=== PATIENT | female | born 1960 | race Caucasian/White ===

== ENCOUNTER 2018-12-28 22:03 | Inpatient (IN) | payer MEDICAID, OTHER ==
[~2018-12-28] VITALS: Ht 162.6 cm; Wt 80.8 kg
[~2018-12-28 22:03] MED LIST: ALBU2.5V5 NEB; ALPR1TAB2 PO; ALPR1TAB6 PO; AMLO10TA8 PO; ASPI325T11 PO; ATOR40TA59 PO; CHOL500016 PO; CLON0.1T12 PO; CYCL10TA2 PO; DOCU-109 PO; ESCITALOPRAM OX10 MG PO; ESTR0.3T PO; FLUT9.9S NS; GABA-585 PO; IPRA4AER IH; LEXAPRO20 MG PO; LIDO700A4 TP; LISI-130 PO; LISI10TA2 PO; OXYC1TAB15 PO; OXYC1TAB22 PO; OXYC40TA21 PO; OXYC60TA7 PO; OXYC80TA16 PO; POLY17PO29 PO; PRED20TA PO; Pantoprazole PO; UNABLE MC; VENL75CA PO; VENTOLIN HFA18 GM INH
[2018-12-28] MEDS ORDERED: IV NORMAL SALINE 1000ML BAG 1,000 ML IV ONE (23:00)
[2018-12-28] MEDS ORDERED: DEXAMETHASONE SOD PHOS 20 MG/5 ML VIAL. IV ONE (23:00)
[2018-12-28] MEDS ORDERED: ASPIRIN 325 MG TABLET PO ONE (23:00)
--- NOTE | 2018-12-28 23:14 | PHYS DOC ---
Past Medical History Past Medical History: Arthritis, Cancer, COPD, Fibromyalgia, High Cholesterol, Hypertension, Pancreatitis Additional Past Medical Histor: chronic pain,fibromyalgia,kidney cancer-no chemo,only surgery, shingles Past Surgical History: Cholecystectomy, , Other Additional Past Surgical Histo: BACK SURGERIES, RIGHT NEPHRECTOMY Alcohol Use: None Drug Use: None, Marijuana Adult General Chief Complaint Chief Complaint: SHORTNESS OF BREATH HPI HPI Patient is a 58 year old 58-year-old female presenting to the emergency department for shortness of breath. Patient states that her shortness of breath started about 5 days ago and has worsened since then. She attempted breathing treatments at home with little relief. Exertion worsens her shortness of breath. In addition patient has having a cough with sputum that was initially clear in color and has since changed to green in color. Patient has reported some chills over the past 5 days but no fevers. She is also reporting sharp left sided chest pain over the same time period. Patient denies any nausea, vomiting, lightheadedness, dizziness or diaphoresis. In addition to concerns today, patient also states that she's been having multiple falls over the past 5 days and no longer has anyone at home to help her out. Review of Systems Review of Systems Constitutional: Reports chills. Denies fever Eyes: Denies redness or eye pain HENT: Denies nasal congestion or sore throat Respiratory: Reports cough or shortness of breath Cardiovascular: Denies chest pain or palpitations GI: Denies abdominal pain, nausea, vomiting : Denies dysuria or hematuria Musculoskeletal: Denies back pain or joint pain Integument: Denies rash or skin lesions Neurologic: Denies headache, focal weakness Complete systems were reviewed and found to be within normal limits, except as documented in this note. Current Medications Current Medications Current Medications Medications (Trade) Dose Ordered Sig/Naman Start Time Stop Time Status Last Admin Dose Admin Aspirin (Raudel Aspirin) 325 mg 1X ONCE 12/28/18 23:00 12/28/18 23:01 DC 12/28/18 23:29 325 MG Dexamethasone Sodium Phosphate (Decadron) 10 mg 1X ONCE 12/29/18 00:00 12/29/18 00:01 DC 12/29/18 00:38 10 MG Lorazepam (Ativan) 1 mg 1X ONCE 12/28/18 23:45 12/28/18 23:46 DC 12/29/18 00:00 1 MG Sodium Chloride 1,000 ml @ 1,000 mls/hr 1X ONCE 12/28/18 23:00 12/28/18 23:59 DC 12/28/18 23:29 1,000 MLS/HR Allergies Allergies Allergies Coded Allergies Type Severity Reaction Last Updated Verified codeine Allergy Intermediate hives 02/27/15 Yes fentanyl Allergy Intermediate Nausea and Vomiting 02/27/15 Yes morphine Adverse Reaction Intermediate vomiting 02/27/15 Yes Physical Exam Physical Exam Constitutional: No acute distress, non-toxic appearance. HENT: Normocephalic, atraumatic, dry mucous membranes, nose normal. Eyes: EOMI, conjunctiva normal, no discharge. Neck: Normal range of motion, supple. Cardiovascular:Heart rate regular rhythm, no murmur Lungs & Thorax: Bilateral breath sounds clear to auscultation, bilateral wheezes, no rhonchi or rails. Abdomen: Bowel sounds normal, soft, no tenderness. Skin: Warm, dry, no erythema. Back: No tenderness, no CVA tenderness. Extremities: Tenderness in all extremities, ROM intact, no edema. Neurologic: Alert and oriented X 3, no focal deficits noted. Psychologic: Affect normal, mood normal. Current Patient Data Vital Signs Vital Signs Date Time Temp Pulse Resp B/P (MAP) Pulse Ox O2 Delivery O2 Flow Rate FiO2 12/28/18 23:50 91 25 177/105 (129) 96 Room Air 12/28/18 22:20 98.5 98.5 Lab Values Laboratory Tests Test 12/28/18 23:26 White Blood Count 11.0 x10^3/uL (4.0-11.0) Red Blood Count 4.97 x10^6/uL (3.50-5.40) Hemoglobin 15.3 g/dL (12.0-15.5) Hematocrit 44.8 % (36.0-47.0) Mean Corpuscular Volume 90 fL (79-100) Mean Corpuscular Hemoglobin 31 pg (25-35) Mean Corpuscular Hemoglobin Concent 34 g/dL (31-37) Red Cell Distribution Width 14.3 % (11.5-14.5) Platelet Count 275 x10^3/uL (140-400) Neutrophils (%) (Auto) 59 % (31-73) Lymphocytes (%) (Auto) 28 % (24-48) Monocytes (%) (Auto) 10 % (0-9) H Eosinophils (%) (Auto) 2 % (0-3) Basophils (%) (Auto) 1 % (0-3) Neutrophils # (Auto) 6.5 x10^3uL (1.8-7.7) Lymphocytes # (Auto) 3.0 x10^3/uL (1.0-4.8) Monocytes # (Auto) 1.1 x10^3/uL (0.0-1.1) Eosinophils # (Auto) 0.2 x10^3/uL (0.0-0.7) Basophils # (Auto) 0.1 x10^3/uL (0.0-0.2) Prothrombin Time 12.2 SEC (11.7-14.0) Prothrombin Time INR 0.9 (0.8-1.1) PTT 27 SEC (24-38) Sodium Level 140 mmol/L (136-145) Potassium Level 4.0 mmol/L (3.5-5.1) Chloride Level 102 mmol/L (98-107) Carbon Dioxide Level 29 mmol/L (21-32) Anion Gap 9 (6-14) Blood Urea Nitrogen 24 mg/dL (7-20) H Creatinine 0.8 mg/dL (0.6-1.0) Estimated GFR (Cockcroft-Gault) 74.2 BUN/Creatinine Ratio 30 (6-20) H Glucose Level 109 mg/dL (70-99) H Calcium Level 9.2 mg/dL (8.5-10.1) Magnesium Level 1.9 mg/dL (1.8-2.4) Total Bilirubin 0.1 mg/dL (0.2-1.0) L Aspartate Amino Transferase (AST) 19 U/L (15-37) Alanine Aminotransferase (ALT) 29 U/L (14-59) Alkaline Phosphatase 82 U/L (46-116) Creatine Kinase 50 U/L (26-192) Creatine Kinase MB (Mass) 0.7 ng/mL (0.0-3.6) Creatine Kinase MB Relative Index % (0-4) Troponin I Quantitative < 0.017 ng/mL (0.000-0.055) AU-Eqg-D-Type Natriuretic Peptide 106 pg/mL (0-124) Total Protein 7.1 g/dL (6.4-8.2) Albumin 3.4 g/dL (3.4-5.0) Albumin/Globulin Ratio 0.9 (1.0-1.7) L Lipase 190 U/L (73-393) Laboratory Tests 12/28/18 23:26 Laboratory Tests 12/28/18 23:26 EKG EKG EKG at 01/11/14 showed normal sinus rhythm, rate 92 bpm, no ST elevation or signs of ischemia.[] Radiology/Procedures Radiology/Procedures Preliminary chest x-ray read by ER physician showed no acute pulmonary process. Preliminary hip x-ray read by emergency room physician revealed no acute fractures. Course & Med Decision Making Course & Med Decision Making 58 showed films in the emergency department her shortness of breath. Respiratory shortness of breath the past 5 days. Patient also admits to having some chest pain and recurring falls at home. Patient does have history of COPD. Labs and imaging were obtained and posted to chart. Symptomatic treatment provided with interval improvement. Troponin was negative. EKG showed no signs of ST elevation or ischemia. Breathing treatments provided some relief however patient had multiple treatments. Due to the multiple breathing treatments and falls at home patient would benefit from admission. Patient requiring admission for further evaluation and treatment. Discussed with Dr. Mccoy who is in agreement with admission. Discussed findings and plan with patient and family, who acknowledge understanding and agreement. [] Dragon Disclaimer Dragon Disclaimer This electronic medical record was generated, in whole or in part, using a voice recognition dictation system. Departure Departure Impression: Primary Impression: COPD exacerbation Additional Impression: Chronic pain Disposition: ADMITTED INPATIENT Admitting Physician: Other (Dr. Mccoy) Condition: GUARDED Referrals: ISACC HAMPTON MD (PCP) Problem Qualifiers Additional Impression: Chronic pain Chronic pain type: chronic pain syndrome Qualified Codes: G89.4 - Chronic pain syndrome LANCE HOSKINS DO Dec 28, 2018 23:14
[2018-12-28 23:38] LABS: BASO # 0.1 x10^3/uL (0.0-0.2); BASO % 1 % (0-3); EOS # 0.2 x10^3/uL (0.0-0.7); EOS % 2 % (0-3); HEMATOCRIT 44.8 % (36.0-47.0); HEMOGLOBIN 15.3 g/dL (12.0-15.5); LYMPH % 28 % (24-48); MEAN CORPUSCULAR HEMOGLOBIN 31 pg (25-35); MEAN CORPUSCULAR HGB CONC 34 g/dL (31-37); MEAN CORPUSCULAR VOLUME 90 fL (79-100); MONO # 1.1 x10^3/uL (0.0-1.1); MONO % 10 % (0-9); NEUT # 6.5 x10^3uL (1.8-7.7); NEUT % 59 % (31-73); PLATELET COUNT 275 x10^3/uL (140-400); RED BLOOD COUNT 4.97 x10^6/uL (3.50-5.40); RED CELL DISTRIBUTION WIDTH 14.3 % (11.5-14.5)
[2018-12-28 23:46] LABS: PROTHROMBIN TIME PATIENT 12.2 SEC (11.7-14.0)
[2018-12-28 23:47] LABS: CALCIUM 9.2 mg/dL (8.5-10.1); CREATININE 0.8 mg/dL (0.6-1.0); GFR 74.2
[2018-12-28 23:53] LABS: ALBUMIN 3.4 g/dL (3.4-5.0); ALBUMIN/GLOBULIN RATIO 0.9 (1.0-1.7); MAGNESIUM 1.9 mg/dL (1.8-2.4); TOTAL BILIRUBIN 0.1 mg/dL (0.2-1.0); TOTAL PROTEIN 7.1 g/dL (6.4-8.2)
[2018-12-29] MEDS ORDERED: DEXAMETHASONE SOD PHOS 4 MG/ML VIAL IV ONE
[2018-12-29 00:03] LABS: CREATINE KINASE 50 U/L (26-192)
[2018-12-29] MEDS ORDERED: HYDROmorphone 2 MG/ML VIAL IV PRN (00:15)
[2018-12-29] MEDS ORDERED: oxyCODONE/APAP 10/325 1 TAB TABLET PO PRN (00:30)
[2018-12-29] MEDS ORDERED: ONDANSETRON PF 4 MG/2 ML VIAL. IV PRN (00:30)
[2018-12-29] MEDS ORDERED: ALBUTEROL SULFATE 2.5 MG/3 ML NEBU. NEB PRN (01:00)
[2018-12-29] MEDS ORDERED: ESCITALOPRAM OX10 MG PO (02:28)
[2018-12-29 02:30] VITALS: BP 167/84
[2018-12-29] MEDS ORDERED: OXYC60TA7 PO (02:33)
[2018-12-29] MEDS ORDERED: PROM25TA10 PO (02:33)
[2018-12-29] MEDS ORDERED: ALPR0.5T6 PO (02:33)
[2018-12-29] MEDS ORDERED: OXYC5CAP PO (02:33)
[2018-12-29] MEDS ORDERED: ATROVENT HFA12.9 GM IH (02:33)
[2018-12-29] MEDS ORDERED: CYCL10TA2 PO (02:33)
[2018-12-29] MEDS ORDERED: SENN8.6T99 PO (02:33)
[2018-12-29] MEDS: oxyCODONE IR 5 MG TABLET PO PRN ×5 (03:08→21:13)
--- NOTE | 2018-12-29 06:24 | EKG ---
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
[2018-12-29 07:00] VITALS: BP 112/63
--- NOTE | 2018-12-29 07:46 | RAD ---
Portable chest, 12/29/2018: HISTORY: Chest pain Comparison is made to a study from 01/27/2018. The heart size and pulmonary vascularity are normal. No pulmonary infiltrate is seen. There is no evidence of pleural fluid. IMPRESSION: No acute cardiopulmonary abnormality is detected. Electronically signed by: Benny Lunsford MD (12/29/2018 7:43 AM) [facility]
--- NOTE | 2018-12-29 07:48 | RAD ---
Pelvis with right hip, 3 views, 12/29/2018: HISTORY: Fall, pain No fracture or dislocation is identified. The hip joint spaces are well-maintained with only minimal marginal spurring. Surgical clips overlie the upper pelvis and lower abdomen. IMPRESSION: No acute bony abnormality is detected. Electronically signed by: Benny Lunsfodr MD (12/29/2018 7:44 AM) [facility]
[2018-12-29] MEDS ORDERED: oxyCODONE ER 10 MG TAB.ER.12H PO SCH (09:00)
--- NOTE | 2018-12-29 09:48 | PDOC1 ---
History and Physical Date of Admission Date of Admission DATE: 12/29/18 TIME: 09:47 Identification/Chief Complaint Chief Complaint 8 year old 58-year-old female presenting to the emergency department for shortness of breath. Patient states that her shortness of breath started about 5 days ago and has worsened since then. She attempted breathing treatments at home with little relief. Exertion worsens her shortness of breath. In addition patient has having a cough with sputum that was initially clear in color and has since changed to green in color. Patient has reported some chills over the past 5 days reporting sharp left sided chest pain over the same time period. Patient denies any nausea, vomiting, lightheadedness, dizziness or diaphoresis. In addition to concerns today, patient also states that she's been having multiple falls over the past 5 days She reports she was seeing a PCP AT [facility] Y[facility] WHO TERMINATED HER CARE IN NOVEMBER 2018 DUE TO A POS THC SCREEN, States her right hip and leg are very painful, and now she was told she has a left renal mass ? cancer, hx right nephrectomy due to RENAL CELL CA Past Medical History Past Medical History Past Medical History Past Medical History Past Medical History: Arthritis, Cancer, COPD, Fibromyalgia, High Cholesterol, Hypertension, Pancreatitis Additional Past Medical Histor: chronic pain,fibromyalgia,kidney cancer-no chemo,only surgery, shingles Past Surgical History: Cholecystectomy, , Other Additional Past Surgical Histo: BACK SURGERIES, RIGHT NEPHRECTOMY Alcohol Use: None Drug Use: None, Marijuana Cardiovascular: HTN, Hyperlipidemia Pulmonary: COPD CENTRAL NERVOUS SYSTEM: Periperal neuropathy, Other GI: GERD, Other Heme/Onc: Cancer, Other Psych: Anxiety, Depression Musculoskeletal: low back pain Rheumatologic: Fibromyalgia, Other Renal/: Renal Ca. Past Surgical History Past Surgical History: Cholecystectomy, Hysterectomy, Other Family History Family History: Heart Disease, Hypertension Social History Smoke: <1 pack per day ALCOHOL: none Drugs: None, Marijuana Current Problem List Problem List Problems Medical Problems: (1) Chronic pain Status: Acute (2) COPD exacerbation Status: Acute Current Medications Current Medications Current Medications Aspirin (Raudel Aspirin) 325 mg 1X ONCE PO Last administered on 12/28/18at 23:29 ; Start 12/28/18 at 23:00; Stop 12/28/18 at 23:01; Status DC Sodium Chloride 1,000 ml @ 1,000 mls/hr 1X ONCE IV Last administered on 23:29; Start 12/28/18 at 23:00; Stop 12/28/18 at 23:59; Status DC Dexamethasone Sodium Phosphate (Decadron) 10 mg 1X ONCE IV ; Start 12/28/18 at 23:00; Stop 12/28/18 at 23:01; Status DC Lorazepam (Ativan) 1 mg 1X ONCE IV Last administered on 12/29/18 00:00; Start 12/28/18 at 23:45; Stop 12/28/18 at 23:46; Status DC Dexamethasone Sodium Phosphate (Decadron) 10 mg 1X ONCE IV Last administered on 12/29/18 00:38; Start 12/29/18 at 00:00; Stop 12/29/18 at 00:01; Status DC Ondansetron HCl (Zofran) 4 mg PRN Q8HRS PRN IV NAUSEA/VOMITING Last administered on 12/29/18at 00:38; Start 12/29/18 at 00:30; Stop 12/30/18 at 00:29 Hydromorphone HCl (Dilaudid) 0.5 mg Q4HRS PRN IV PAIN; Start 12/29/18 at 00:15 ; Stop 12/29/18 at 00:23; Status DC Oxycodone/ Acetaminophen (Percocet 10/325) 1 tab PRN Q4HRS PRN PO PAIN Last administered on 12/29/18 00:38; Start 12/29/18 at 00:30; Stop 12/29/18 at 02:45 ; Status DC Albuterol Sulfate (Ventolin Neb Soln) 2.5 mg PRN QID PRN NEB WHEEZING Last administered on 12/29/18 07:59; Start 12/29/18 at 01:00 Oxycodone HCl (OxyCONTIN) 10 mg Q12HR PO Last administered on 12/29/18 09:05; Start 12/29/18 at 09:00 Oxycodone HCl (Roxicodone) 10 mg PRN Q6HRS PRN PO PAIN Last administered on 09:07; Start 12/29/18 at 02:45 Active Scripts Active Reported Oxycodone Hcl 5 Mg Capsule 10 Mg PO PRN Q4HRS PRN Promethazine Hcl 25 Mg Tablet 25 Mg PO PRN Q6HRS PRN Cyclobenzaprine Hcl 10 Mg Tablet 10 Mg PO TID Alprazolam 0.5 Mg Tablet 1 Mg PO TID PRN Senokot (Sennosides) 8.6 Mg Tablet 8.6 Mg PO BID Atrovent Hfa (Ipratropium [place]) 12.9 Gm Hfa.aer.ad 1 Puff IH QID Oxycontin (Oxycodone HCl) 60 Mg Tab.er.12h 60 Mg PO BID Escitalopram Oxalate 10 Mg Tablet 10 Mg PO DAILY Miralax (Polyethylene Glycol 3350) 17 Gm Powd.pack 1 Packet PO DAILY Albuterol Sulfate Neb Soln (Albuterol Sulfate) 2.5 Mg/3 Ml Vial.neb 1 Vial NEB PRN Q4HRS PRN Flonase Allergy Relief (Fluticasone Propionate) 9.9 Ml [place].susp 2 Sprays NS DAILY Lisinopril 40 Mg Tablet 1 Tab PO DAILY Vitamin D3 (Cholecalciferol (Vitamin D3)) 5,000 Unit Tablet 1 Tab PO WEEKLY Allergies Allergies: Coded Allergies: codeine (Verified Allergy, Intermediate, hives, 02/27/15) fentanyl (Verified Allergy, Intermediate, Nausea and Vomiting, 02/27/15) hives morphine (Verified Adverse Reaction, Intermediate, vomiting, 02/27/15) ROS Review of System Review of Systems Review of Systems Constitutional: Reports chills. Denies fever Eyes: Denies redness or eye pain HENT: Denies nasal congestion or sore throat Respiratory: Reports cough or shortness of breath Cardiovascular: Denies chest pain or palpitations GI: Denies abdominal pain, nausea, vomiting : Denies dysuria or hematuria Musculoskeletal: Denies back pain or joint pain Integument: Denies rash or skin lesions Neurologic: Denies headache, focal weakness 14 PT systems were reviewed and found to be within normal limits, except as documented in this note. General: YES: Fatigue Hematological and Lymphatic: No: Bleeding Problems, Blood Clots, Blood Transfusions, Brusing, Night Sweats, Pallor, Swollen Lymph Nodes, Other Respiratory: YES: Cough Musculoskeletal: Yes Gait Disturbance, Yes Joint Pain, Yes Joint Stiffness, Yes Joint Swelling Physical Exam Physical Exam Physical Exam Physical Exam Constitutional: No acute distress, non-toxic appearance. HENT: Normocephalic, atraumatic, dry mucous membranes, nose normal. Eyes: EOMI, conjunctiva normal, no discharge. Neck: Normal range of motion, supple. Cardiovascular:Heart rate regular rhythm, no murmur Lungs & Thorax: Bilateral breath sounds clear to auscultation, bilateral wheezes, no rhonchi or rails. Abdomen: Bowel sounds normal, soft, no tenderness. Skin: Warm, dry, no erythema. Back: No tenderness, no CVA tenderness. Extremities: Tenderness in all extremities, ROM intact, no edema. Neurologic: Alert and oriented X 3, no focal deficits noted. Psychologic: Affect normal, mood normal. General: Alert, Oriented X3, Cooperative, moderate distress HEENT: Atraumatic, PERRLA, EOMI, Mucous membr. moist/pink Lungs: Normal air movement Heart: S1S2, RRR Breasts: Not examined Abdomen: Normal bowel sounds, Soft Rectal Exam: not examined PELVIC: Examination not indicated Neuro: Normal speech, Cranial nerves 3-12 NL Psych/Mental Status: Mood NL (TEARFUL) Vitals Vitals Vital Signs Date Time Temp Pulse Resp B/P (MAP) Pulse Ox O2 Delivery O2 Flow Rate FiO2 12/29/18 09:07 18 Room Air 12/29/18 07:59 93 12/29/18 07:00 97.9 77 112/63 (79) 97.9 Labs Labs Laboratory Tests Test 12/28/18 23:26 12/29/18 02:40 12/29/18 08:11 White Blood Count 11.0 x10^3/uL (4.0-11.0) Red Blood Count 4.97 x10^6/uL (3.50-5.40) Hemoglobin 15.3 g/dL (12.0-15.5) Hematocrit 44.8 % (36.0-47.0) Mean Corpuscular Volume 90 fL (79-100) Mean Corpuscular Hemoglobin 31 pg (25-35) Mean Corpuscular Hemoglobin Concent 34 g/dL (31-37) Red Cell Distribution Width 14.3 % (11.5-14.5) Platelet Count 275 x10^3/uL (140-400) Neutrophils (%) (Auto) 59 % (31-73) Lymphocytes (%) (Auto) 28 % (24-48) Monocytes (%) (Auto) 10 % (0-9) Eosinophils (%) (Auto) 2 % (0-3) Basophils (%) (Auto) 1 % (0-3) Neutrophils # (Auto) 6.5 x10^3uL (1.8-7.7) Lymphocytes # (Auto) 3.0 x10^3/uL (1.0-4.8) Monocytes # (Auto) 1.1 x10^3/uL (0.0-1.1) Eosinophils # (Auto) 0.2 x10^3/uL (0.0-0.7) Basophils # (Auto) 0.1 x10^3/uL (0.0-0.2) Prothrombin Time 12.2 SEC (11.7-14.0) Prothromb Time International Ratio 0.9 (0.8-1.1) Activated Partial Thromboplast Time 27 SEC (24-38) Sodium Level 140 mmol/L (136-145) Potassium Level 4.0 mmol/L (3.5-5.1) Chloride Level 102 mmol/L (98-107) Carbon Dioxide Level 29 mmol/L (21-32) Anion Gap 9 (6-14) Blood Urea Nitrogen 24 mg/dL (7-20) Creatinine 0.8 mg/dL (0.6-1.0) Estimated GFR (Cockcroft-Gault) 74.2 BUN/Creatinine Ratio 30 (6-20) Glucose Level 109 mg/dL (70-99) Calcium Level 9.2 mg/dL (8.5-10.1) Magnesium Level 1.9 mg/dL (1.8-2.4) Total Bilirubin 0.1 mg/dL (0.2-1.0) Aspartate Amino Transf (AST/SGOT) 19 U/L (15-37) Alanine Aminotransferase (ALT/SGPT) 29 U/L (14-59) Alkaline Phosphatase 82 U/L (46-116) Creatine Kinase 50 U/L (26-192) Creatine Kinase MB (Mass) 0.7 ng/mL (0.0-3.6) Creatine Kinase MB Relative Index % (0-4) Troponin I Quantitative < 0.017 ng/mL (0.000-0.055) < 0.017 ng/mL (0.000-0.055) < 0.017 ng/mL (0.000-0.055) HG-Mli-S-Type Natriuretic Peptide 106 pg/mL (0-124) Total Protein 7.1 g/dL (6.4-8.2) Albumin 3.4 g/dL (3.4-5.0) Albumin/Globulin Ratio 0.9 (1.0-1.7) Lipase 190 U/L (73-393) Lactic Acid Level 2.0 mmol/L (0.4-2.0) Laboratory Tests Test 12/28/18 23:26 12/29/18 02:40 12/29/18 08:11 White Blood Count 11.0 x10^3/uL (4.0-11.0) Red Blood Count 4.97 x10^6/uL (3.50-5.40) Hemoglobin 15.3 g/dL (12.0-15.5) Hematocrit 44.8 % (36.0-47.0) Mean Corpuscular Volume 90 fL (79-100) Mean Corpuscular Hemoglobin 31 pg (25-35) Mean Corpuscular Hemoglobin Concent 34 g/dL (31-37) Red Cell Distribution Width 14.3 % (11.5-14.5) Platelet Count 275 x10^3/uL (140-400) Neutrophils (%) (Auto) 59 % (31-73) Lymphocytes (%) (Auto) 28 % (24-48) Monocytes (%) (Auto) 10 % (0-9) Eosinophils (%) (Auto) 2 % (0-3) Basophils (%) (Auto) 1 % (0-3) Neutrophils # (Auto) 6.5 x10^3uL (1.8-7.7) Lymphocytes # (Auto) 3.0 x10^3/uL (1.0-4.8) Monocytes # (Auto) 1.1 x10^3/uL (0.0-1.1) Eosinophils # (Auto) 0.2 x10^3/uL (0.0-0.7) Basophils # (Auto) 0.1 x10^3/uL (0.0-0.2) Prothrombin Time 12.2 SEC (11.7-14.0) Prothromb Time International Ratio 0.9 (0.8-1.1) Activated Partial Thromboplast Time 27 SEC (24-38) Sodium Level 140 mmol/L (136-145) Potassium Level 4.0 mmol/L (3.5-5.1) Chloride Level 102 mmol/L (98-107) Carbon Dioxide Level 29 mmol/L (21-32) Anion Gap 9 (6-14) Blood Urea Nitrogen 24 mg/dL (7-20) Creatinine 0.8 mg/dL (0.6-1.0) Estimated GFR (Cockcroft-Gault) 74.2 BUN/Creatinine Ratio 30 (6-20) Glucose Level 109 mg/dL (70-99) Calcium Level 9.2 mg/dL (8.5-10.1) Magnesium Level 1.9 mg/dL (1.8-2.4) Total Bilirubin 0.1 mg/dL (0.2-1.0) Aspartate Amino Transf (AST/SGOT) 19 U/L (15-37) Alanine Aminotransferase (ALT/SGPT) 29 U/L (14-59) Alkaline Phosphatase 82 U/L (46-116) Creatine Kinase 50 U/L (26-192) Creatine Kinase MB (Mass) 0.7 ng/mL (0.0-3.6) Creatine Kinase MB Relative Index % (0-4) Troponin I Quantitative < 0.017 ng/mL (0.000-0.055) < 0.017 ng/mL (0.000-0.055) < 0.017 ng/mL (0.000-0.055) UF-Jeu-F-Type Natriuretic Peptide 106 pg/mL (0-124) Total Protein 7.1 g/dL (6.4-8.2) Albumin 3.4 g/dL (3.4-5.0) Albumin/Globulin Ratio 0.9 (1.0-1.7) Lipase 190 U/L (73-393) Lactic Acid Level 2.0 mmol/L (0.4-2.0) Images Images PROCEDURE MRI lumbar spine without contrast. HISTORY Chronic low back pain with lumbar radiculitis, increasing leg pain, bilateral leg symptoms TECHNIQUE Sagittal and axial T1 and T2 and sagittal STIR images were acquired of the lumbar spine. Contrast: COMPARISON April 16, 2014 FINDINGS There is some motion degradation. Lumbar vertebral body stature and AP alignment are preserved. There are again interbody cages at L5-S1. There is also hardware near the right anterolateral L1 vertebral body as seen previously. There is posterior annular tear at L4-5 as seen previously, now posterior annular tear at L3-4. There is mild degenerative disc disease at L4-5, mild disc desiccation at L3-4. Conus terminates at L1-2. There is no new significant marrow edema. L3-L4: Shallow posterior central protrusion is less prominent. There is very mild narrowing of the far right lateral recess, decreased indentation upon the central ventral thecal sac. There is very mild narrowing of the right neural foramen, left neural foramen adequate. L4-5: There is again negligible bulge. Spinal canal is overall adequate. There is minimal narrowing of the left neural foramen, right neural foramen adequate. L5-S1: Spinal canal and the neural foramina are adequate. IMPRESSION 1. Previously seen shallow posterior protrusion at L3-4 is less prominent. There is no new significant lumbar spinal stenosis, minimal narrowing of the far right lateral recess at L3-4. There is mild degenerative disc disease at L4-5, mild disc desiccation at L3-4. 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 There are again interbody cages at L5-S1. Electronically signed by: Tuan Hunt MD (Jun 18, 2016 10:11:12) CT abdomen and pelvis with IV contrast History: Right nephrectomy for renal cell carcinoma. Pancreatitis. Restaging and esophageal thickening. Comparison: CT abdomen pelvis 02/28/2015. Technique: After administration of oral and intravenous contrast, 75 mL Omnipaque 300, helical CT of the abdomen and pelvis was performed from the lung bases through the ischial tuberosities. Axial, sagittal, and coronal reconstructions were obtained. One or more of the following individualized dose reduction techniques were utilized for the study: Automated exposure control Adjustment of mA and/or kV according to patient's size Use of iterative reconstruction technique. Findings: Images of lower chest demonstrate mild thickening of the esophageal wall which may be up to 6 mm. This appears circumferential. Intrahepatic and extrahepatic biliary dilatation is similar to previous study. The common bile duct measures 15 mm in diameter, similar to previous study. No pancreatic inflammation is identified. There is mild dilatation of the pancreatic duct up to 5 mm, similar to previous study. No convincing pancreatic mass is identified. Spleen is unremarkable. There is mild thickening of both adrenal glands, similar to previous study. Aortic atherosclerosis is present. No bowel obstruction or inflammation is identified. Appendix is without evidence of inflammation. Urinary bladder demonstrates small amount of excreted intravenous contrast, probably from recent CT angiography of the chest. Urinary bladder has unremarkable appearance. Right nephrectomy changes are seen. The superior pole of left kidney demonstrates a 1.2 cm low-density lesion with Hounsfield units of approximately 30, apparently above that of simple cyst. This lesion appears unchanged in size from previous study. No soft tissue appearing mass is seen involving the left kidney. Left ureter is unremarkable. No abdominal or pelvic lymphadenopathy is seen. No suspicious osseous lesions are identified. Degenerative changes are present spine. Discectomy and vertebral fusion changes are seen at L5-S1. Impression: 1. Status post right nephrectomy. No recurrent or metastatic disease identified. 2. Superior pole of left kidney demonstrates 1.2 cm low-density lesion which appears mildly denser than simple cyst. This is unchanged from previous study and is favored represent hyperdense cyst. Attempt at evaluation with ultrasound may be helpful to confirm cystic nature. 3. Mild thickening of both adrenal glands, similar to previous study. 4. Status post cholecystectomy. Biliary and pancreatic ductal dilatation is similar to previous study. 5. Mild nonspecific esophageal thickening, possibly indicating esophagitis. Recommend clinical correlation. DICTATED and SIGNED BY: LANCE CLOUD MD DATE: 06/18/16 0940 CC: MARQUES WAY DO; ISACC HAMPTON MD ~ Indication severe chest pain. Shortness of breath. Coughing. Duration of symptoms 3 days. Contrast imaging through the chest was performed. Examination was tailored for the detection of pulmonary embolus. Images were reformatted in the coronal and sagittal planes. 60 cc of Omnipaque 300 was administered intravenously. Note is made of a similar examination 11/10/2007. The study is negative for pulmonary embolus. The thoracic aorta appears unremarkable. There is some diffuse thickening of the esophagus.. This is probably incidental. The appearance is very similar to the previous exam. There appear to be several small nodules associated with the right lobe of the thyroid. These appear new relative to the previous exam. These could be further evaluated with ultrasound. There is no significant mediastinal adenopathy. There is some mild right hilar adenopathy similar to the prior study. Dominant soft tissue mass is not seen in either lung. There is a nodular opacity in the left lower lobe measuring approximately 7 mm. This could represent a soft tissue pulmonary nodule or an inflammatory focus. (Image 82 series 3). Follow-up imaging assessing stability should be considered. Imaging through the upper abdomen is unremarkable. IMPRESSION: Negative study for pulmonary embolus. Small nodular opacity in the left lower lobe. This may represent a soft tissue nodule or a small inflammatory focus. Diffuse thickening of the esophagus. If esophageal pathology is suspect endoscopy should be considered. Nodules associated with the right lobe of the thyroid. These could be further evaluated with nonemergent ultrasound if clinically warranted PROCEDURE: HIP RIGHT 2V WITH PELVIS Pelvis with right hip, 3 views, 12/29/2018: HISTORY: Fall, pain No fracture or dislocation is identified. The hip joint spaces are well-maintained with only minimal marginal spurring. Surgical clips overlie the upper pelvis and lower abdomen. IMPRESSION: No acute bony abnormality is detected. Electronically signed by: Benny Lunsford MD (12/29/2018 7:44 AM) [facility] Portable chest, 12/29/2018: HISTORY: Chest pain Comparison is made to a study from 01/27/2018. The heart size and pulmonary vascularity are normal. No pulmonary infiltrate is seen. There is no evidence of pleural fluid. IMPRESSION: No acute cardiopulmonary abnormality is detected. Electronically signed by: Benny Lunsford MD (12/29/2018 7:43 AM) [facility] VTE Prophylaxis Ordered VTE Prophylaxis Devices: No VTE Pharmacological Prophylaxi: Yes Assessment/Plan Assessment/Plan IMPRESSION: 1. Acute respiratory failure secondary to acute exacerbation of chronic obstructive pulmonary disease. 2. Acute exacerbation of chronic obstructive pulmonary disease. 3. hypercapnic respiratory failure. 4. Tobacco dependence. CONTINUOUS 5. Acute bronchitis. 6. HX THC ABUSE 7. Chronic pain syndrome 8. chest pain with neg troponin i series 9- fibromyalgia and chronic pain 10 anxiety and depression 11 hip pain and back pain 12. Diffuse thickening of the esophagus. If esophageal pathology is suspect endoscopy should be considered. BY CT [address] Mild nonspecific esophageal thickening, possibly indicating esophagitis. 13. Nodules associated with the right lobe of the thyroid. These could be further evaluated with nonemergent ultrasound if clinically warranted 14. 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 ON MRI 2016 L/S PLAN: 1. The patient DID not qualify for Trilogy.IN THE PAST 2. instructed on the importance of discontinuing tobacco use. 3. IV ANTIBIOTICS ROCEPHIN, ZITHROMAX 4. DUONEBS QID 5. PULM CONSULT 6. echo 7. tele 8. cardiology consult 9. dvt prophylaxis 10. encouraged narcotic taper and discontinue with hx COPD 11. CONSULT DR KAPLAN 12. out pt GI CONSULT [facility] 78 MIN PT EXAM, CHART REVIEW, > 50% OF TIME WITH EXAM, CHART REVIEW, pt care coordination LENO SAM MD Dec 29, 2018 09:47
[2018-12-29 10:55] VITALS: BP 165/84
[2018-12-29] MEDS ORDERED: PIP/TAZO PER PHARMACY MC PRN (11:30)
[2018-12-29] MEDS ORDERED: PROMETHAZINE 12.5 MG TABLET. PO PRN (11:45)
[2018-12-29] MEDS: ALBUTEROL SULFATE 2.5 MG/3 ML NEBU. NEB PRN (11:52)
[2018-12-29] MEDS: IPRATROPIUM BROMIDE 0.5 MG/2.5 ML NEBU. NEB SCH ×3 (12:00→19:14)
[2018-12-29] MEDS: FLUTICASONE 50MCG/NASAL SPRAY 16GM BOTTLE. NS SCH (12:00)
[2018-12-29] MEDS: AZITHROMYCIN 250 MG TABLET. PO SCH (12:41)
[2018-12-29] MEDS: SENNOSIDES 8.6 MG TABLET PO SCH ×2 (12:41→20:06)
[2018-12-29] MEDS: ALPRAZolam 1 MG TABLET PO PRN ×2 (12:42→20:07)
[2018-12-29] MEDS: POLYETHYLENE GLYCOL 3350 17 GM PACKET. PO SCH (12:42)
[2018-12-29] MEDS: LISINOPRIL 20 MG TABLET PO SCH (12:42)
[2018-12-29] MEDS: CITALOPRAM 20 MG TABLET. PO SCH (12:42)
--- NOTE | 2018-12-29 12:45 | PDOC2 ---
RICH CHAVEZ [employer] 12/29/18 1245: CARDIAC CONSULT DATE OF CONSULT Date of Consult DATE: 12/29/18 TIME: 12:36 REASON FOR CONSULT Reason for Consult: Chest pain REFERRING PHYSICIAN Referring Physician: Dr. Dahl SOURCE Source: Chart review, Patient HISTORY OF PRESENT ILLNESS HISTORY OF PRESENT ILLNESS This is a 58 yo female who presented secondary to shortness breath. Patient reports not feeling well over the last week or so. Has had cough productive of green sputum, congestion, shortness of breath, and body aches. Has been on the couch most of the last week. Yesterday, had very brief sharp pain under her left breast. Seemed to improve by applying pressure to the area. Resolved after about 5 minutes. A few minutes later, had a sharp pain under her right breast. Last only a couple of secondary. No associated dizziness, diaphoresis, palpitations, or nausea/vomiting. No further pain since. PAST MEDICAL HISTORY Cardiovascular: HTN Pulmonary: COPD CENTRAL NERVOUS SYSTEM: Periperal neuropathy GI: GERD, Other (pancreatitis ) Heme/Onc: Cancer (kidney ), Other (DVT) Psych: Anxiety, Depression Musculoskeletal: Osteoarthritis, Other (DDD) Rheumatologic: Fibromyalgia Infectious disease: No pertinent hx ENT: No pertinent hx Renal/: No pertinent hx Endocrine: No pertinent hx Dermatology: No pertinent hx PAST SURGICAL HISTORY Past Surgical History: Hysterectomy, Other (right nephrectomy ) FAMILY HISTORY Family History: Heart Disease (brother ) SOCIAL HISTORY Smoke: Quit (now vapes) ALCOHOL: none Drugs: Marijuana Lives: Alone CURRENT MEDICATIONS CURRENT MEDICATIONS Current Medications Medications (Trade) Dose Ordered Sig/Naman Route PRN Reason Start Time Stop Time Status Last Admin Dose Admin Aspirin (Raudel Aspirin) 325 mg 1X ONCE PO 12/28/18 23:00 12/28/18 23:01 DC 12/28/18 23:29 Sodium Chloride 1,000 ml @ 1,000 mls/hr 1X ONCE IV 12/28/18 23:00 12/28/18 23:59 DC 12/28/18 23:29 Lorazepam (Ativan) 1 mg 1X ONCE IV 12/28/18 23:45 12/28/18 23:46 DC 12/29/18 00:00 Dexamethasone Sodium Phosphate (Decadron) 10 mg 1X ONCE IV 12/29/18 00:00 12/29/18 00:01 DC 12/29/18 00:38 Ondansetron HCl (Zofran) 4 mg PRN Q8HRS PRN IV NAUSEA/VOMITING 12/29/18 00:30 12/30/18 00:29 12/29/18 00:38 Oxycodone/ Acetaminophen (Percocet 10/325) 1 tab PRN Q4HRS PRN PO PAIN 12/29/18 00:30 12/29/18 02:45 DC 12/29/18 00:38 Albuterol Sulfate (Ventolin Neb Soln) 2.5 mg PRN QID PRN NEB WHEEZING 12/29/18 01:00 12/29/18 11:35 DC 12/29/18 07:59 Oxycodone HCl (OxyCONTIN) 10 mg Q12HR PO 12/29/18 09:00 12/29/18 11:38 DC 12/29/18 09:05 Oxycodone HCl (Roxicodone) 10 mg PRN Q6HRS PRN PO PAIN 12/29/18 02:45 12/29/18 12:16 DC 12/29/18 09:07 Albuterol Sulfate (Ventolin Neb Soln) 2.5 mg PRN Q4HRS PRN NEB WHEEZING 12/29/18 11:30 12/29/18 11:52 ALLERGIES ALLERGIES: Coded Allergies: codeine (Verified Allergy, Intermediate, hives, 02/27/15) fentanyl (Verified Allergy, Intermediate, Nausea and Vomiting, 02/27/15) hives morphine (Verified Adverse Reaction, Intermediate, vomiting, 02/27/15) ROS Review of System 14 point ROS conducted with pertinent positives noted above in HPI PHYSICAL EXAM General: Alert, Oriented X3, Cooperative, No acute distress HEENT: Atraumatic Lungs: Clear to auscultation, Other (wheezes) Heart: Regular rate, Normal S1, Normal S2 Abdomen: Soft, No tenderness Extremities: No edema, Normal pulses Skin: No breakdown, No significant lesion Neuro: Normal speech, Sensation intact Psych/Mental Status: Other (tearful) MUSCULOSKELETAL: No deformity VITALS VITALS Vital Signs Date Time Temp Pulse Resp B/P (MAP) Pulse Ox O2 Delivery O2 Flow Rate FiO2 12/29/18 11:48 90 Room Air 12/29/18 10:55 98.1 107 18 165/84 (111) 98.1 LABS Lab: Laboratory Tests Test 12/28/18 23:26 12/29/18 02:40 12/29/18 08:11 White Blood Count 11.0 x10^3/uL (4.0-11.0) Red Blood Count 4.97 x10^6/uL (3.50-5.40) Hemoglobin 15.3 g/dL (12.0-15.5) Hematocrit 44.8 % (36.0-47.0) Mean Corpuscular Volume 90 fL (79-100) Mean Corpuscular Hemoglobin 31 pg (25-35) Mean Corpuscular Hemoglobin Concent 34 g/dL (31-37) Red Cell Distribution Width 14.3 % (11.5-14.5) Platelet Count 275 x10^3/uL (140-400) Neutrophils (%) (Auto) 59 % (31-73) Lymphocytes (%) (Auto) 28 % (24-48) Monocytes (%) (Auto) 10 % (0-9) Eosinophils (%) (Auto) 2 % (0-3) Basophils (%) (Auto) 1 % (0-3) Neutrophils # (Auto) 6.5 x10^3uL (1.8-7.7) Lymphocytes # (Auto) 3.0 x10^3/uL (1.0-4.8) Monocytes # (Auto) 1.1 x10^3/uL (0.0-1.1) Eosinophils # (Auto) 0.2 x10^3/uL (0.0-0.7) Basophils # (Auto) 0.1 x10^3/uL (0.0-0.2) Prothrombin Time 12.2 SEC (11.7-14.0) Prothromb Time International Ratio 0.9 (0.8-1.1) Activated Partial Thromboplast Time 27 SEC (24-38) Sodium Level 140 mmol/L (136-145) Potassium Level 4.0 mmol/L (3.5-5.1) Chloride Level 102 mmol/L (98-107) Carbon Dioxide Level 29 mmol/L (21-32) Anion Gap 9 (6-14) Blood Urea Nitrogen 24 mg/dL (7-20) Creatinine 0.8 mg/dL (0.6-1.0) Estimated GFR (Cockcroft-Gault) 74.2 BUN/Creatinine Ratio 30 (6-20) Glucose Level 109 mg/dL (70-99) Calcium Level 9.2 mg/dL (8.5-10.1) Magnesium Level 1.9 mg/dL (1.8-2.4) Total Bilirubin 0.1 mg/dL (0.2-1.0) Aspartate Amino Transf (AST/SGOT) 19 U/L (15-37) Alanine Aminotransferase (ALT/SGPT) 29 U/L (14-59) Alkaline Phosphatase 82 U/L (46-116) Creatine Kinase 50 U/L (26-192) Creatine Kinase MB (Mass) 0.7 ng/mL (0.0-3.6) Creatine Kinase MB Relative Index % (0-4) Troponin I Quantitative < 0.017 ng/mL (0.000-0.055) < 0.017 ng/mL (0.000-0.055) < 0.017 ng/mL (0.000-0.055) JO-Eyl-B-Type Natriuretic Peptide 106 pg/mL (0-124) Total Protein 7.1 g/dL (6.4-8.2) Albumin 3.4 g/dL (3.4-5.0) Albumin/Globulin Ratio 0.9 (1.0-1.7) Lipase 190 U/L (73-393) Lactic Acid Level 2.0 mmol/L (0.4-2.0) ECHOCARDIOGRAM ECHOCARDIOGRAM <Conclusion> The left ventricular systolic function is normal and the ejection fraction is within normal range. The Ejection Fraction is 55-60%. Transmitral Doppler flow pattern is Grade I-abnormal relaxation pattern. The left atrium size is normal. The right atrium size is normal. The aortic valve is normal in structure and function. Doppler and Color-flow revealed trace mitral regurgitation. Doppler and Color Flow revealed physiological tricuspid regurgitation. There is mild pulmonary hypertension. The PA pressure was estimated at 31 mmHg. The pulmonic valve is not well visualized. There is no evidence of significant pericardial effusion. DATE: 01/31/18 0906 ASSESSMENT/PLAN ASSESSMENT/PLAN 1. Chest pain, atypical. AMI ruled out. 2. Acute respiratory failure secondary to AECOPD, bronchitis 3. Malignant hypertension 4. Chronic pain/fibromyalgia; chronic narcotic use 5. Right renal CA s/p nephrectomy. Possibly left kidney CA as well Recommendations Lipid panel Continue lisinopril. Add Norvasc Echo to assess LV systolic function Follow pulmonary recommends Further recommendations pending above VLAD MALONE MD 12/29/189: CARDIAC CONSULT ASSESSMENT/PLAN ASSESSMENT/PLAN Patient seen and examined. Agree with CAR SHAGGER's assessment and plan. CP with atypical features. [place] ruled out. Agree with norvasc for better BP control Check 2D echo to assess LVF and rule out WMA Plan ischemic eval as outpatient Continue treatment for COPD exac per pulm team Thank you for your consultation RICH CHAVEZ APRN Dec 29, 2018 12:45 VLAD MALONE MD Dec 29, 2018 18:19
[2018-12-29 13:08] LABS: CHOLESTEROL/HDL RATIO 4.5
--- NOTE | 2018-12-29 13:24 | CONS ---
DATE OF CONSULTATION: ATTENDING PHYSICIAN: Dr. Mccoy. REASON FOR CONSULTATION: Dyspnea. HISTORY OF PRESENT ILLNESS: The patient is a 58-year-old female who has multiple chronic medical problems with history of fibromyalgia, history of right renal cancer. Now, she has been told that she has cancer in the left kidney as well, being followed at . The patient has been on oxycodone and OxyContin. She was brought into the hospital as she fell and was complaining of more pain in the right leg. The patient states she also had DVT about 3 years ago, which was treated with Coumadin. She has not followed up regularly at . She was recently dismissed from due to smoking marijuana, which she was doing it as she was trying to control her pain. She was brought into the hospital with multiple issues including some shortness of breath with wheezing. She has a cough with yellow-green sputum production. She has no headaches, no nausea, vomiting, no diarrhea, but she has pain in her back and her hip. The patient's chest x-ray was reviewed by me. It was reported as clear. There may be faint tiny infiltrate in the right perihilar area. She had a previous CT chest on 01/31/2018, which did not reveal any definite parenchymal abnormalities. PAST MEDICAL HISTORY: History of a right renal cell cancer, history of surgery for that, right nephrectomy, history of COPD, ongoing tobaccoism, history of fibromyalgia, history of chronic pain syndrome, dyslipidemia, hypertension, history of pancreatitis. Now, she has been told she has cancer in her left kidney as well, history of shingles. PAST SURGICAL HISTORY: Cholecystectomy, right nephrectomy, back surgeries. SOCIAL HISTORY: History of tobacco use for 25 years and history of marijuana use. REVIEW OF SYSTEMS: Twelve-point system obtained. Pertinent positives discussed in my history of present illness, otherwise noncontributory. All systems that were negative were reviewed as well. MEDICATIONS: All reviewed as listed in the MRAD including antibiotic. PHYSICAL EXAMINATION: VITAL SIGNS: Reviewed. Blood pressure on the high side. She is afebrile. Pulse ox is 93% on room air. NECK: Supple. LUNGS: With faint bilateral expiratory wheezes. CARDIOVASCULAR: With regular rate and rhythm. ABDOMEN: Soft, nontender. EXTREMITIES: With no pitting edema. PSYCHIATRIC: She is crying with pain. IMPRESSION: 1. Dyspnea secondary to acute exacerbation of chronic obstructive pulmonary disease triggered by acute bronchitis. 2. Acute bronchitis, cannot exclude mild pneumonia involving the right perihilar area. CT chest has been ordered by primary care physician and will follow the results. 3. Chronic pain syndrome, on chronic narcotics. 4. History of right renal cell cancer, status post right nephrectomy and being followed at and has been told that she has cancer on her left kidney as well. We will ask Urology recommendation. RECOMMENDATIONS: 1. Continue with present antibiotics, Rocephin and Zithromax. 2. Continue present bronchodilators. 3. PRN oxygen. 4. We will review the CT chest and make further recommendations. 5. Pain management per PCP. 6. Urology consult. 7. Discussed with Dr. Dahl and we will follow along with you. ESPERANZA FLETCHER MD DR: CLAU/quinton JOB#: [id number] / [id number]
--- NOTE | 2018-12-29 13:53 | RAD ---
CT of the chest without contrast, 12/29/2018: HISTORY: Esophageal mass Noncontrast scans were obtained as requested. Comparison is made to a study from 01/31/2018. There is calcific plaquing of the thoracic aorta without evidence of aneurysm. Minimal coronary artery calcification is noted. The heart is not enlarged. No mediastinal adenopathy is evident. No esophageal mass is delineated. Patient respiratory motion artifacts partially degrade evaluation of the pulmonary parenchyma. There is a tiny 3 mm nodule in the posteromedial aspect of the right lower lobe as seen on axial image 399 of series #4. In retrospect there was a less clearly defined opacity in this region on the previous study. No other pulmonary nodularity or significant consolidation is seen. There is no evidence of pleural fluid. The stomach is distended with fluid and food debris. IMPRESSION: 1. Tiny right pulmonary nodule which in retrospect was present on 01/31/2018 but is better demonstrated on today's thinner slices. Depending on the patient's risk factors, CT follow-up is suggested to establish stability. 2. Coronary calcifications. 3. No esophageal mass is identified. Correlation with endoscopic findings is suggested. PQRS Compliance Statement: One or more of the following individualized dose reduction techniques were utilized for this examination: 1. Automated exposure control 2. Adjustment of the mA and/or kV according to patient size 3. Use of iterative reconstruction technique Electronically signed by: Benny Lunsford MD (12/29/2018 1:50 PM) [facility]
[2018-12-29] MEDS: cefTRIAXone IV Push 1 GM VIAL. IVP SCH (14:11)
[2018-12-29 15:00] VITALS: BP 148/86
[2018-12-29] MEDS: ENOXAPARIN 40 MG/0.4 ML SYRINGE. SQ SCH (17:26)
[2018-12-29 19:57] VITALS: BP 139/83
[2018-12-29] MEDS: oxyCODONE ER 15 MG TAB.ER.12H PO SCH (20:05)
[2018-12-29] MEDS: LACTOBACILLUS RHAMNOSUS GG 1 CAPSULE. PO SCH (20:06)
[2018-12-30] MEDS: oxyCODONE IR 5 MG TABLET PO PRN ×4 (01:46→17:12)
[2018-12-30 03:20] VITALS: BP 143/78
[2018-12-30 07:00] VITALS: BP 130/64
[2018-12-30] MEDS: FLUTICASONE 50MCG/NASAL SPRAY 16GM BOTTLE. NS SCH (08:17)
[2018-12-30] MEDS: SENNOSIDES 8.6 MG TABLET PO SCH ×2 (08:18→20:43)
[2018-12-30] MEDS: amLODIPine BESYLATE 5 MG TABLET PO SCH (08:18)
[2018-12-30] MEDS: AZITHROMYCIN 250 MG TABLET. PO SCH (08:18)
[2018-12-30] MEDS: CITALOPRAM 20 MG TABLET. PO SCH (08:19)
[2018-12-30] MEDS: POLYETHYLENE GLYCOL 3350 17 GM PACKET. PO SCH (08:19)
[2018-12-30] MEDS: LACTOBACILLUS RHAMNOSUS GG 1 CAPSULE. PO SCH ×2 (08:19→20:43)
[2018-12-30] MEDS: LISINOPRIL 20 MG TABLET PO SCH (08:19)
[2018-12-30] MEDS: ALPRAZolam 1 MG TABLET PO PRN ×2 (08:28→20:51)
[2018-12-30] MEDS: IPRATROPIUM BROMIDE 0.5 MG/2.5 ML NEBU. NEB SCH ×4 (08:44→20:00)
--- NOTE | 2018-12-30 08:50 | PDOC ---
PULMONARY PROGRESS NOTES Subjective has sob, cough, no pain Vitals Vital Signs Date Time Temp Pulse Resp B/P (MAP) Pulse Ox O2 Delivery O2 Flow Rate FiO2 12/30/18 08:19 69 143/78 12/30/18 08:18 96 Room Air 12/30/18 07:00 98.2 20 98.2 ROS: No Nausea, No Chest Pain General: Alert, Mild Distress HEENT: Other (nc at perrl ) Lungs: Wheezing, Other Cardiovascular: S1, S2 Abdomen: Soft, Non-tender Neuro Exam: Alert Extremities: No Edema Skin: Warm Labs Laboratory Tests Test 12/28/18 23:26 12/29/18 02:40 12/29/18 08:11 White Blood Count 11.0 x10^3/uL (4.0-11.0) Red Blood Count 4.97 x10^6/uL (3.50-5.40) Hemoglobin 15.3 g/dL (12.0-15.5) Hematocrit 44.8 % (36.0-47.0) Mean Corpuscular Volume 90 fL (79-100) Mean Corpuscular Hemoglobin 31 pg (25-35) Mean Corpuscular Hemoglobin Concent 34 g/dL (31-37) Red Cell Distribution Width 14.3 % (11.5-14.5) Platelet Count 275 x10^3/uL (140-400) Neutrophils (%) (Auto) 59 % (31-73) Lymphocytes (%) (Auto) 28 % (24-48) Monocytes (%) (Auto) 10 % (0-9) Eosinophils (%) (Auto) 2 % (0-3) Basophils (%) (Auto) 1 % (0-3) Neutrophils # (Auto) 6.5 x10^3uL (1.8-7.7) Lymphocytes # (Auto) 3.0 x10^3/uL (1.0-4.8) Monocytes # (Auto) 1.1 x10^3/uL (0.0-1.1) Eosinophils # (Auto) 0.2 x10^3/uL (0.0-0.7) Basophils # (Auto) 0.1 x10^3/uL (0.0-0.2) Prothrombin Time 12.2 SEC (11.7-14.0) Prothromb Time International Ratio 0.9 (0.8-1.1) Activated Partial Thromboplast Time 27 SEC (24-38) Sodium Level 140 mmol/L (136-145) Potassium Level 4.0 mmol/L (3.5-5.1) Chloride Level 102 mmol/L (98-107) Carbon Dioxide Level 29 mmol/L (21-32) Anion Gap 9 (6-14) Blood Urea Nitrogen 24 mg/dL (7-20) Creatinine 0.8 mg/dL (0.6-1.0) Estimated GFR (Cockcroft-Gault) 74.2 BUN/Creatinine Ratio 30 (6-20) Glucose Level 109 mg/dL (70-99) Calcium Level 9.2 mg/dL (8.5-10.1) Magnesium Level 1.9 mg/dL (1.8-2.4) Total Bilirubin 0.1 mg/dL (0.2-1.0) Aspartate Amino Transf (AST/SGOT) 19 U/L (15-37) Alanine Aminotransferase (ALT/SGPT) 29 U/L (14-59) Alkaline Phosphatase 82 U/L (46-116) Creatine Kinase 50 U/L (26-192) Creatine Kinase MB (Mass) 0.7 ng/mL (0.0-3.6) Creatine Kinase MB Relative Index % (0-4) Troponin I Quantitative < 0.017 ng/mL (0.000-0.055) < 0.017 ng/mL (0.000-0.055) < 0.017 ng/mL (0.000-0.055) TN-Qzy-J-Type Natriuretic Peptide 106 pg/mL (0-124) Total Protein 7.1 g/dL (6.4-8.2) Albumin 3.4 g/dL (3.4-5.0) Albumin/Globulin Ratio 0.9 (1.0-1.7) Lipase 190 U/L (73-393) Lactic Acid Level 2.0 mmol/L (0.4-2.0) Triglycerides Level 160 mg/dL (0-150) Cholesterol Level 285 mg/dL (0-200) LDL Cholesterol, Calculated 190 mg/dL (0-100) VLDL Cholesterol, Calculated 32 mg/dL (0-40) Non-HDL Cholesterol Calculated 222 mg/dL (0-129) HDL Cholesterol 63 mg/dL (40-60) Cholesterol/HDL Ratio 4.5 Medications Active Scripts Medications Dose Route/Sig Max Daily Dose Days Date Category Oxycodone Hcl 5 Mg Capsule 10 Mg PO PRN Q4HRS PRN 12/29/18 Reported Promethazine Hcl 25 Mg Tablet 25 Mg PO PRN Q6HRS PRN 12/29/18 Reported Cyclobenzaprine Hcl 10 Mg Tablet 10 Mg PO TID 12/29/18 Reported Alprazolam 0.5 Mg Tablet 1 Mg PO TID PRN 12/29/18 Reported Senokot (Sennosides) 8.6 Mg Tablet 8.6 Mg PO BID 12/29/18 Reported Atrovent Hfa (Ipratropium [place]) 12.9 Gm Hfa.aer.ad 1 Puff IH QID 12/29/18 Reported Oxycontin (Oxycodone HCl) 60 Mg Tab.er.12h 60 Mg PO BID 12/29/18 Reported Escitalopram Oxalate 10 Mg Tablet 10 Mg PO DAILY 12/29/18 Reported Miralax (Polyethylene Glycol 3350) 17 Gm Powd.pack 1 Packet PO DAILY 01/28/18 Reported Albuterol Sulfate Neb Soln (Albuterol Sulfate) 2.5 Mg/3 Ml Vial.neb 1 Vial NEB PRN Q4HRS PRN 01/27/18 Reported Flonase Allergy Relief (Fluticasone Propionate) 9.9 Ml [place].susp 2 Sprays NS DAILY 01/27/18 Reported Lisinopril 40 Mg Tablet 1 Tab PO DAILY 01/27/18 Reported Vitamin D3 (Cholecalciferol (Vitamin D3)) 5,000 Unit Tablet 1 Tab PO WEEKLY 01/27/[address] reviewed 1. Tiny right pulmonary nodule which in retrospect was present on 01/31/2018 but is better demonstrated on today's thinner slices. Depending on the patient's risk factors, CT follow-up is suggested to establish stability. 2. Coronary calcifications. 3. No esophageal mass is identified. Correlation with endoscopic findings is suggested. Impression . IMPRESSION: 1. Dyspnea secondary to acute exacerbation of chronic obstructive pulmonary disease triggered by acute bronchitis. 2. Acute bronchitis, CT chest, no infilt 3. Chronic pain syndrome, on chronic narcotics. 4. History of right renal cell cancer, status post right nephrectomy and being followed at and has been told that she has cancer on her left kidney as well. Urology consulted Plan . RECOMMENDATIONS: 1. Continue with present antibiotics, Rocephin and Zithromax. 2. Continue bronchodilators. 3. has wheezing add solumedrol, add ICS. 4. CT chest reviewed. 5. Pain management per PCP. 6. Urology consulted. 7. discussed w pt we will follow along with you. GURWINDER KOHLI MD Dec 30, 2018 08:50
[2018-12-30 08:53] LABS: BASO # 0.1 x10^3/uL (0.0-0.2); BASO % 1 % (0-3); EOS # 0.1 x10^3/uL (0.0-0.7); EOS % 1 % (0-3); HEMATOCRIT 45.1 % (36.0-47.0); HEMOGLOBIN 14.8 g/dL (12.0-15.5); LYMPH # 3.6 x10^3/uL (1.0-4.8); LYMPH % 25 % (24-48); MEAN CORPUSCULAR HEMOGLOBIN 30 pg (25-35); MEAN CORPUSCULAR HGB CONC 33 g/dL (31-37); MEAN CORPUSCULAR VOLUME 91 fL (79-100); MONO # 1.4 x10^3/uL (0.0-1.1); MONO % 10 % (0-9); NEUT # 9.3 x10^3uL (1.8-7.7); NEUT % 64 % (31-73); PLATELET COUNT 268 x10^3/uL (140-400); RED BLOOD COUNT 4.95 x10^6/uL (3.50-5.40); RED CELL DISTRIBUTION WIDTH 14.8 % (11.5-14.5); WHITE BLOOD COUNT 14.4 x10^3/uL (4.0-11.0)
[2018-12-30] MEDS ORDERED: CHOLECALCIFEROL (VITAMIN D3) 5,000 UNIT CAPSULE PO SCH (09:00)
[2018-12-30] MEDS: BUDESONIDE 0.5 MG/2 ML NEBU. NEB SCH ×2 (09:00→20:00)
[2018-12-30 09:09] LABS: ALBUMIN 3.1 g/dL (3.4-5.0); ALBUMIN/GLOBULIN RATIO 0.9 (1.0-1.7); CALCIUM 8.8 mg/dL (8.5-10.1); GFR 57.4; TOTAL BILIRUBIN 0.2 mg/dL (0.2-1.0); TOTAL PROTEIN 6.6 g/dL (6.4-8.2)
[2018-12-30] MEDS: methylPREDNISolone SOD SUCC PF 40 MG/ML VIAL. IV SCH ×3 (09:49→20:44)
[2018-12-30] MEDS: oxyCODONE ER 15 MG TAB.ER.12H PO SCH ×2 (09:49→20:43)
[2018-12-30 11:00] VITALS: BP 138/80
--- NOTE | 2018-12-30 11:27 | NUR ---
pt has been fighting us on a daily basis concerning her diet. She is on a cardiac diet but swears that she is not to be on one. she throws a big fit, yells at dietary and us on the floor. We have educated her numerous times on the diet chosen for her but she does not care. dietary does not wish to speak with her on the phone any longer due to the fact she likes to yell at them and hang up. So at this point we just let her order whatver she wants and staff orders it for her. Chad Silvestre RN
--- NOTE | 2018-12-30 11:47 | PDOC ---
PROGRESS NOTES History of Present Illness History of Present Illness Assessment/Plan Assessment/Plan IMPRESSION: 1. Acute respiratory failure secondary to acute exacerbation of chronic obstructive pulmonary disease. 2. Acute exacerbation of chronic obstructive pulmonary disease. 3. hypercapnic respiratory failure. 4. Tobacco dependence. CONTINUOUS 5. Acute bronchitis. 6. HX THC ABUSE 7. Chronic pain syndrome 8. chest pain with neg troponin i series 9- fibromyalgia and chronic pain 10 anxiety and depression 11 hip pain and back pain 12. Diffuse thickening of the esophagus. If esophageal pathology is suspect endoscopy should be considered. BY CT [address] Mild nonspecific esophageal thickening, possibly indicating esophagitis. 13. Nodules associated with the right lobe of the thyroid. These could be further evaluated with nonemergent ultrasound if clinically warranted 14. 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 ON MRI 2015 L/S 15. INTRACTABLE BACK PAIN AND RADICULOPATHY PLAN: 1. The patient DID not qualify for Trilogy.IN THE PAST 2. instructed on the importance of discontinuing tobacco use. 3. IV ANTIBIOTICS ROCEPHIN, ZITHROMAX 4. DUONEBS QID 5. PULM CONSULT 6. echo 7. tele 8. cardiology consult 9. dvt prophylaxis 10. encouraged narcotic taper and discontinue with hx COPD 11. CONSULT DR KAPLAN 12. out pt GI CONSULT [facility] 48 MIN PT EXAM, CHART REVIEW, > 50% OF TIME WITH EXAM, CHART REVIEW, pt care coordination Vitals Vitals Vital Signs Date Time Temp Pulse Resp B/P (MAP) Pulse Ox O2 Delivery O2 Flow Rate FiO2 12/30/18 09:49 96 Room Air 12/30/18 08:19 69 143/78 12/30/18 07:00 98.2 20 98.2 Physical Exam General: Alert, Oriented X3, Cooperative, No acute distress, mild distress Heart: Regular rate, Normal S1, Normal S2 Lungs: Wheezing (WORSE TODAY), Other Abdomen: Normal bowel sounds, Soft, No tenderness Extremities: No cyanosis, No edema, Normal pulses Skin: No breakdown, No significant lesion Labs LABS SEX: F EXAM STATUS: ADM IN ORD. PHYSICIAN: LENO SAM MD REASON: ESOPHAGEAL MASS PROCEDURE: CT CHEST WO CONTRAST CT of the chest without contrast, 12/29/2018: HISTORY: Esophageal mass Noncontrast scans were obtained as requested. Comparison is made to a study from 01/31/2018. There is calcific plaquing of the thoracic aorta without evidence of aneurysm. Minimal coronary artery calcification is noted. The heart is not enlarged. No mediastinal adenopathy is evident. No esophageal mass is delineated. Patient respiratory motion artifacts partially degrade evaluation of the pulmonary parenchyma. There is a tiny 3 mm nodule in the posteromedial aspect of the right lower lobe as seen on axial image 399 of series #4. In retrospect there was a less clearly defined opacity in this region on the previous study. No other pulmonary nodularity or significant consolidation is seen. There is no evidence of pleural fluid. The stomach is distended with fluid and food debris. IMPRESSION: 1. Tiny right pulmonary nodule which in retrospect was present on 01/31/2018 but is better demonstrated on today's thinner slices. Depending on the patient's risk factors, CT follow-up is suggested to establish stability. 2. Coronary calcifications. 3. No esophageal mass is identified. Correlation with endoscopic findings is suggested. Laboratory Tests Test 12/30/18 08:00 12/30/18 08:20 Sodium Level 139 mmol/L (136-145) Potassium Level 4.0 mmol/L (3.5-5.1) Chloride Level 103 mmol/L (98-107) Carbon Dioxide Level 28 mmol/L (21-32) Anion Gap 8 (6-14) Blood Urea Nitrogen 25 mg/dL (7-20) Creatinine 1.0 mg/dL (0.6-1.0) Estimated GFR (Cockcroft-Gault) 57.4 BUN/Creatinine Ratio 25 (6-20) Glucose Level 123 mg/dL (70-99) Calcium Level 8.8 mg/dL (8.5-10.1) Total Bilirubin 0.2 mg/dL (0.2-1.0) Aspartate Amino Transf (AST/SGOT) 15 U/L (15-37) Alanine Aminotransferase (ALT/SGPT) 24 U/L (14-59) Alkaline Phosphatase 72 U/L (46-116) Total Protein 6.6 g/dL (6.4-8.2) Albumin 3.1 g/dL (3.4-5.0) Albumin/Globulin Ratio 0.9 (1.0-1.7) White Blood Count 14.4 x10^3/uL (4.0-11.0) Red Blood Count 4.95 x10^6/uL (3.50-5.40) Hemoglobin 14.8 g/dL (12.0-15.5) Hematocrit 45.1 % (36.0-47.0) Mean Corpuscular Volume 91 fL (79-100) Mean Corpuscular Hemoglobin 30 pg (25-35) Mean Corpuscular Hemoglobin Concent 33 g/dL (31-37) Red Cell Distribution Width 14.8 % (11.5-14.5) Platelet Count 268 x10^3/uL (140-400) Neutrophils (%) (Auto) 64 % (31-73) Lymphocytes (%) (Auto) 25 % (24-48) Monocytes (%) (Auto) 10 % (0-9) Eosinophils (%) (Auto) 1 % (0-3) Basophils (%) (Auto) 1 % (0-3) Neutrophils # (Auto) 9.3 x10^3uL (1.8-7.7) Lymphocytes # (Auto) 3.6 x10^3/uL (1.0-4.8) Monocytes # (Auto) 1.4 x10^3/uL (0.0-1.1) Eosinophils # (Auto) 0.1 x10^3/uL (0.0-0.7) Basophils # (Auto) 0.1 x10^3/uL (0.0-0.2) Assessment and Plan Assessmemt and Plan Problems Medical Problems: (1) Chronic pain Status: Acute (2) COPD exacerbation Status: Acute Comment Review of Relevant I have reviewed the following items rodolfo (where applicable) has been applied. Labs Laboratory Tests Test 12/28/18 23:26 12/29/18 02:40 12/29/18 08:11 12/30/18 08:00 White Blood Count 11.0 x10^3/uL (4.0-11.0) Red Blood Count 4.97 x10^6/uL (3.50-5.40) Hemoglobin 15.3 g/dL (12.0-15.5) Hematocrit 44.8 % (36.0-47.0) Mean Corpuscular Volume 90 fL (79-100) Mean Corpuscular Hemoglobin 31 pg (25-35) Mean Corpuscular Hemoglobin Concent 34 g/dL (31-37) Red Cell Distribution Width 14.3 % (11.5-14.5) Platelet Count 275 x10^3/uL (140-400) Neutrophils (%) (Auto) 59 % (31-73) Lymphocytes (%) (Auto) 28 % (24-48) Monocytes (%) (Auto) 10 % (0-9) Eosinophils (%) (Auto) 2 % (0-3) Basophils (%) (Auto) 1 % (0-3) Neutrophils # (Auto) 6.5 x10^3uL (1.8-7.7) Lymphocytes # (Auto) 3.0 x10^3/uL (1.0-4.8) Monocytes # (Auto) 1.1 x10^3/uL (0.0-1.1) Eosinophils # (Auto) 0.2 x10^3/uL (0.0-0.7) Basophils # (Auto) 0.1 x10^3/uL (0.0-0.2) Prothrombin Time 12.2 SEC (11.7-14.0) Prothromb Time International Ratio 0.9 (0.8-1.1) Activated Partial Thromboplast Time 27 SEC (24-38) Sodium Level 140 mmol/L (136-145) 139 mmol/L (136-145) Potassium Level 4.0 mmol/L (3.5-5.1) 4.0 mmol/L (3.5-5.1) Chloride Level 102 mmol/L (98-107) 103 mmol/L (98-107) Carbon Dioxide Level 29 mmol/L (21-32) 28 mmol/L (21-32) Anion Gap 9 (6-14) 8 (6-14) Blood Urea Nitrogen 24 mg/dL (7-20) 25 mg/dL (7-20) Creatinine 0.8 mg/dL (0.6-1.0) 1.0 mg/dL (0.6-1.0) Estimated GFR (Cockcroft-Gault) 74.2 57.4 BUN/Creatinine Ratio 30 (6-20) 25 (6-20) Glucose Level 109 mg/dL (70-99) 123 mg/dL (70-99) Calcium Level 9.2 mg/dL (8.5-10.1) 8.8 mg/dL (8.5-10.1) Magnesium Level 1.9 mg/dL (1.8-2.4) Total Bilirubin 0.1 mg/dL (0.2-1.0) 0.2 mg/dL (0.2-1.0) Aspartate Amino Transf (AST/SGOT) 19 U/L (15-37) 15 U/L (15-37) Alanine Aminotransferase (ALT/SGPT) 29 U/L (14-59) 24 U/L (14-59) Alkaline Phosphatase 82 U/L (46-116) 72 U/L (46-116) Creatine Kinase 50 U/L (26-192) Creatine Kinase MB (Mass) 0.7 ng/mL (0.0-3.6) Creatine Kinase MB Relative Index % (0-4) Troponin I Quantitative < 0.017 ng/mL (0.000-0.055) < 0.017 ng/mL (0.000-0.055) < 0.017 ng/mL (0.000-0.055) IJ-Oyb-A-Type Natriuretic Peptide 106 pg/mL (0-124) Total Protein 7.1 g/dL (6.4-8.2) 6.6 g/dL (6.4-8.2) Albumin 3.4 g/dL (3.4-5.0) 3.1 g/dL (3.4-5.0) Albumin/Globulin Ratio 0.9 (1.0-1.7) 0.9 (1.0-1.7) Lipase 190 U/L (73-393) Lactic Acid Level 2.0 mmol/L (0.4-2.0) Triglycerides Level 160 mg/dL (0-150) Cholesterol Level 285 mg/dL (0-200) LDL Cholesterol, Calculated 190 mg/dL (0-100) VLDL Cholesterol, Calculated 32 mg/dL (0-40) Non-HDL Cholesterol Calculated 222 mg/dL (0-129) HDL Cholesterol 63 mg/dL (40-60) Cholesterol/HDL Ratio 4.5 Test 12/30/18 08:20 White Blood Count 14.4 x10^3/uL (4.0-11.0) Red Blood Count 4.95 x10^6/uL (3.50-5.40) Hemoglobin 14.8 g/dL (12.0-15.5) Hematocrit 45.1 % (36.0-47.0) Mean Corpuscular Volume 91 fL (79-100) Mean Corpuscular Hemoglobin 30 pg (25-35) Mean Corpuscular Hemoglobin Concent 33 g/dL (31-37) Red Cell Distribution Width 14.8 % (11.5-14.5) Platelet Count 268 x10^3/uL (140-400) Neutrophils (%) (Auto) 64 % (31-73) Lymphocytes (%) (Auto) 25 % (24-48) Monocytes (%) (Auto) 10 % (0-9) Eosinophils (%) (Auto) 1 % (0-3) Basophils (%) (Auto) 1 % (0-3) Neutrophils # (Auto) 9.3 x10^3uL (1.8-7.7) Lymphocytes # (Auto) 3.6 x10^3/uL (1.0-4.8) Monocytes # (Auto) 1.4 x10^3/uL (0.0-1.1) Eosinophils # (Auto) 0.1 x10^3/uL (0.0-0.7) Basophils # (Auto) 0.1 x10^3/uL (0.0-0.2) Laboratory Tests Test 12/30/18 08:00 12/30/18 08:20 Sodium Level 139 mmol/L (136-145) Potassium Level 4.0 mmol/L (3.5-5.1) Chloride Level 103 mmol/L (98-107) Carbon Dioxide Level 28 mmol/L (21-32) Anion Gap 8 (6-14) Blood Urea Nitrogen 25 mg/dL (7-20) Creatinine 1.0 mg/dL (0.6-1.0) Estimated GFR (Cockcroft-Gault) 57.4 BUN/Creatinine Ratio 25 (6-20) Glucose Level 123 mg/dL (70-99) Calcium Level 8.8 mg/dL (8.5-10.1) Total Bilirubin 0.2 mg/dL (0.2-1.0) Aspartate Amino Transf (AST/SGOT) 15 U/L (15-37) Alanine Aminotransferase (ALT/SGPT) 24 U/L (14-59) Alkaline Phosphatase 72 U/L (46-116) Total Protein 6.6 g/dL (6.4-8.2) Albumin 3.1 g/dL (3.4-5.0) Albumin/Globulin Ratio 0.9 (1.0-1.7) White Blood Count 14.4 x10^3/uL (4.0-11.0) Red Blood Count 4.95 x10^6/uL (3.50-5.40) Hemoglobin 14.8 g/dL (12.0-15.5) Hematocrit 45.1 % (36.0-47.0) Mean Corpuscular Volume 91 fL (79-100) Mean Corpuscular Hemoglobin 30 pg (25-35) Mean Corpuscular Hemoglobin Concent 33 g/dL (31-37) Red Cell Distribution Width 14.8 % (11.5-14.5) Platelet Count 268 x10^3/uL (140-400) Neutrophils (%) (Auto) 64 % (31-73) Lymphocytes (%) (Auto) 25 % (24-48) Monocytes (%) (Auto) 10 % (0-9) Eosinophils (%) (Auto) 1 % (0-3) Basophils (%) (Auto) 1 % (0-3) Neutrophils # (Auto) 9.3 x10^3uL (1.8-7.7) Lymphocytes # (Auto) 3.6 x10^3/uL (1.0-4.8) Monocytes # (Auto) 1.4 x10^3/uL (0.0-1.1) Eosinophils # (Auto) 0.1 x10^3/uL (0.0-0.7) Basophils # (Auto) 0.1 x10^3/uL (0.0-0.2) Microbiology 12/29/18 Blood Culture - Preliminary, Resulted NO GROWTH AFTER 1 DAY Medications Current Medications Aspirin (Raudel Aspirin) 325 mg 1X ONCE PO Last administered on 12/28/18at 23:29 ; Start 12/28/18 at 23:00; Stop 12/28/18 at 23:01; Status DC Sodium Chloride 1,000 ml @ 1,000 mls/hr 1X ONCE IV Last administered on at 23:29; Start 4/18/19 at 23:00; Stop 12/28/18 at 23:59; Status DC Dexamethasone Sodium Phosphate (Decadron) 10 mg 1X ONCE IV ; Start 12/28/18 at 23:00; Stop 12/28/18 at 23:01; Status DC Lorazepam (Ativan) 1 mg 1X ONCE IV Last administered on 12/29/18at 00:00; Start 12/28/18 at 23:45; Stop 12/28/18 at 23:46; Status DC Dexamethasone Sodium Phosphate (Decadron) 10 mg 1X ONCE IV Last administered on 12/29/18 00:38; Start 12/29/18 at 00:00; Stop 12/29/18 at 00:01; Status DC Ondansetron HCl (Zofran) 4 mg PRN Q8HRS PRN IV NAUSEA/VOMITING Last administered on 12/29/18at 00:38; Start 12/29/18 at 00:30; Stop 12/30/18 at 00:29 ; Status DC Hydromorphone HCl (Dilaudid) 0.5 mg Q4HRS PRN IV PAIN; Start 12/29/18 at 00:15 ; Stop 12/29/18 at 00:23; Status DC Oxycodone/ Acetaminophen (Percocet 10/325) 1 tab PRN Q4HRS PRN PO PAIN Last administered on 12/29/18 00:38; Start 12/29/18 at 00:30; Stop 12/29/18 at 02:45 ; Status DC Albuterol Sulfate (Ventolin Neb Soln) 2.5 mg PRN QID PRN NEB WHEEZING Last administered on 12/29/18at 07:59; Start 12/29/18 at 01:00; Stop 12/29/18 at 11:35 ; Status DC Oxycodone HCl (OxyCONTIN) 10 mg Q12HR PO Last administered on 12/29/18at 09:05; Start 12/29/18 at 09:00; Stop 12/29/18 at 11:38; Status DC Oxycodone HCl (Roxicodone) 10 mg PRN Q6HRS PRN PO PAIN Last administered on 09:07; Start 12/29/18 at 02:45; Stop 12/29/18 at 12:16; Status DC Piperacillin Sod/ Tazobactam Sod (Zosyn Per Pharmacy) 1 each PRN DAILY PRN MC SEE COMMENTS; Start 12/29/18 at 11:30; Status Cancel Albuterol Sulfate (Ventolin Neb Soln) 2.5 mg PRN Q4HRS PRN NEB WHEEZING Last administered on 12/29/18at 11:52; Start 12/29/18 at 11:30 Alprazolam (Xanax) 1 mg TID PRN PO ANXIETY / AGITATION Last administered on 08:28; Start 12/29/18 at 11:30 Lisinopril (Prinivil) 40 mg DAILY PO Last administered on 12/30/18 08:19; Start 12/29/18 at 12:00 Vitamin D (Vitamin D3) 5,000 unit WEEKLY PO Last administered on 12/30/18 08: 19; Start 12/30/18 at 09:00 Citalopram Hydrobromide (CeleXA) 20 mg DAILY PO Last administered on 12/30/18 08:19; Start 12/29/18 at 12:00 Fluticasone Propionate (Flonase) 2 spray DAILY NS ; Start 12/29/18 at 12:00 Ipratropium [place] (Atrovent) 0.5 mg RTQID NEB Last administered on 12/30/18 08:44; Start 12/29/18 at 12:00 Oxycodone HCl (Roxicodone) 10 mg PRN Q4HRS PRN PO SEVERE PAIN Last administered on 12/30/18 08:18; Start 12/29/18 at 11:45 Oxycodone HCl (OxyCONTIN) 60 mg Q12HR PO Last administered on 12/30/18 09:49; Start 12/29/18 at 21:00 Polyethylene Glycol (miraLAX PACKET) 17 gm DAILY PO Last administered on 08:19; Start 12/29/18 at 12:00 Promethazine HCl (Phenergan) 25 mg PRN Q6HRS PRN PO NAUSEA/VOMITING; Start at 11:45 Sennosides (Senna) 8.6 mg BID PO Last administered on 12/30/18 08:18; Start at 12:00 Ceftriaxone Sodium (Rocephin) 1 gm Q24H IVP Last administered on 12/29/18at 14: 11; Start 12/29/18 at 12:00 Azithromycin (Zithromax) 250 mg DAILY PO Last administered on 12/30/18at 08:18; Start 12/29/18 at 12:00 Enoxaparin Sodium (Lovenox 40mg Syringe) 40 mg Q24H SQ Last administered on at 17:26; Start 12/29/18 at 16:00 Lactobacillus Rhamnosus (Culturelle) 1 cap BID PO Last administered on 08:19; Start 12/29/18 at 21:00 Amlodipine Besylate (Norvasc) 5 mg DAILY PO Last administered on 12/30/18at 08: 18; Start 12/30/18 at 09:00 Methylprednisolone Sodium Succinate (SOLU-Medrol 40MG VIAL) 40 mg Q8HRS IV Last administered on 12/30/18at 09:49; Start 12/30/18 at 09:00 Budesonide (Pulmicort) 0.5 mg RTBID NEB ; Start 12/30/18 at 09:00 Active Scripts Active Reported Oxycodone Hcl 5 Mg Capsule 10 Mg PO PRN Q4HRS PRN Promethazine Hcl 25 Mg Tablet 25 Mg PO PRN Q6HRS PRN Cyclobenzaprine Hcl 10 Mg Tablet 10 Mg PO TID Alprazolam 0.5 Mg Tablet 1 Mg PO TID PRN Senokot (Sennosides) 8.6 Mg Tablet 8.6 Mg PO BID Atrovent Hfa (Ipratropium [place]) 12.9 Gm Hfa.aer.ad 1 Puff IH QID Oxycontin (Oxycodone HCl) 60 Mg Tab.er.12h 60 Mg PO BID Escitalopram Oxalate 10 Mg Tablet 10 Mg PO DAILY Miralax (Polyethylene Glycol 3350) 17 Gm Powd.pack 1 Packet PO DAILY Albuterol Sulfate Neb Soln (Albuterol Sulfate) 2.5 Mg/3 Ml Vial.neb 1 Vial NEB PRN Q4HRS PRN Flonase Allergy Relief (Fluticasone Propionate) 9.9 Ml [place].susp 2 Sprays NS DAILY Lisinopril 40 Mg Tablet 1 Tab PO DAILY Vitamin D3 (Cholecalciferol (Vitamin D3)) 5,000 Unit Tablet 1 Tab PO WEEKLY Vitals/I & O Vital Sign - Last 24 Hours 12/29/18 12/29/18 12/29/18 12/29/18 11:48 12:41 12:42 15:00 Temp 98.6 98.6 Pulse 107 97 Resp 16 17 B/P (MAP) 165/84 148/86 (106) Pulse Ox 90 95 O2 Delivery Room Air Room Air Room Air 12/29/18 12/29/18 12/29/18 12/29/18 16:20 17:23 19:15 19:57 Temp 98.1 98.1 Pulse 82 Resp 16 18 18 B/P (MAP) 139/83 (101) Pulse Ox 95 95 O2 Delivery Room Air Room Air Room Air 12/29/18 12/29/18 12/29/18 12/30/18 20:00 20:05 21:13 00:05 O2 Delivery Room Air Room Air Room Air Room Air 12/30/18 12/30/18 12/30/18 12/30/18 01:46 03:20 07:00 08:00 Temp 98.4 98.2 98.4 98.2 Pulse 69 64 Resp 20 20 B/P (MAP) 143/78 (99) 130/64 (86) Pulse Ox 96 95 O2 Delivery Room Air Room Air Room Air Room Air 12/30/18 12/30/18 12/30/18 12/30/18 08:18 08:18 08:19 08:44 Pulse 69 69 B/P (MAP) 143/78 143/78 Pulse Ox 96 O2 Delivery Room Air Room Air 12/30/18 12/30/18 09:32 09:49 Pulse Ox 96 O2 Delivery Room Air Room Air Intake and Output 12/29/18 12/29/18 12/30/18 15:00 23:00 07:00 Intake Total 860 ml 710 ml 0 ml Balance 860 ml 710 ml 0 ml LENO SAM MD Dec 30, 2018 11:47
[2018-12-30] MEDS: cefTRIAXone IV Push 1 GM VIAL. IVP SCH (13:01)
--- NOTE | 2018-12-30 14:25 | CARD ---
MR#: [id number] Date of Study: 12/29/2018 Ordering Physician: LENO SAM, Referring Physician: MADAI DOBBS, Tech: Leah Desir APPROVED REPORT EXAM: Two-dimensional and M-mode echocardiogram with Doppler and color Doppler. Other Information Quality : FairHR: 80bpm Technically limited study due to COPD INDICATION COPD Chest Pain RISK FACTORS Smoking 2D DIMENSIONS Left Atrium(2D)3.2 (1.6-4.0cm)IVSd1.2 (0.7-1.1cm) Aortic Root(2D)2.9 (2.0-3.7cm)LVDd4.0 (3.9-5.9cm) LVOT Diameter2.1 (1.8-2.4cm)PWd1.2 (0.7-1.1cm) LVDs2.0 (2.5-4.0cm)FS (%) 50.2 % SV58.2 mlLVEF(%)82.0 (>50%) Aortic Valve AoV Peak Edgar.120.5cm/sAoV VTI25.7cm AO Peak GR.5.8mmHgLVOT Peak Edgar.105.2cm/s AO Mean GR.4mmHgAVA (VMAX)2.92cm2 Mitral Valve MV E Pmekodsd29.6cm/sMV DECEL [id number] MV A Xfgkowpo23.8cm/sE/A Ratio1.1 Tricuspid Valve TR P. Cnhrnspo723fl/sTR Peak Gr.17mmHg Pulmonary Vein S1 Kqajkmlg10.7cm/sD2 Aqovlyjw63.0cm/s PVa [id number] LEFT VENTRICLE The left ventricle is normal size. There is mild concentric left ventricular hypertrophy. The left ve ntricular systolic function is normal and the ejection fraction is within normal range. The Ejection Fraction is 50-55%. There is normal LV segmental wall motion. Transmitral Doppler flow pattern is Gra de II-pseudonormal filling dynamics. RIGHT VENTRICLE The right ventricle is normal size. There is normal right ventricular wall thickness. The right ventr icular systolic function is normal. ATRIA The left atrium size is normal. The right atrium size is normal. The interatrial septum is intact wit h no evidence for an atrial septal defect or patent foramen ovale as noted on 2-D or Doppler imaging. AORTIC VALVE The aortic valve is normal in structure and function. Doppler and Color Flow revealed no significant aortic regurgitation. There is no significant aortic valvular stenosis. MITRAL VALVE The mitral valve is normal in structure and function. There is no evidence of mitral valve prolapse. There is no mitral valve stenosis. Doppler and Color Flow revealed no mitral valve regurgitation note d. TRICUSPID VALVE The tricuspid valve is normal in structure and function. Doppler and Color Flow revealed no tricuspid valve regurgitation noted. There is no tricuspid valve stenosis. PULMONIC VALVE The pulmonic valve is not visualized. Doppler and Color Flow revealed no pulmonic valvular regurgitat ion. There is no pulmonic valvular stenosis. GREAT VESSELS The aortic root is normal in size. The IVC is normal in size and collapses >50% with inspiration. PERICARDIAL EFFUSION There is a trace pericardial effusion. Critical Notification Critical Value: No <Conclusion> The left ventricular systolic function is normal and the ejection fraction is within normal range. Th e Ejection Fraction is 50-55%. There is normal LV segmental wall motion. Technically limited study due to COPD and patient compliance. Signed by : Ren Santana, Electronically Approved : 12/30/2018 14:25:15
[2018-12-30 15:00] VITALS: BP 101/50
[2018-12-30] MEDS: ENOXAPARIN 40 MG/0.4 ML SYRINGE. SQ SCH (17:12)
[2018-12-30 19:10] VITALS: BP 134/71
[2018-12-30] MEDS ORDERED: ZOLPIDEM 5 MG TABLET. PO PRN (20:00)
[2018-12-30] MEDS: ALBUTEROL SULFATE 2.5 MG/3 ML NEBU. NEB PRN (22:33)
[2018-12-30 23:10] VITALS: BP 133/67
[2018-12-31] MEDS: oxyCODONE IR 5 MG TABLET PO PRN ×5 (01:56→21:09)
[2018-12-31] MEDS: methylPREDNISolone SOD SUCC PF 40 MG/ML VIAL. IV SCH ×3 (06:12→20:21)
[2018-12-31] MEDS: ALPRAZolam 1 MG TABLET PO PRN ×2 (06:49→20:20)
[2018-12-31] MEDS: IPRATROPIUM BROMIDE 0.5 MG/2.5 ML NEBU. NEB SCH ×4 (07:43→20:00)
[2018-12-31] MEDS: BUDESONIDE 0.5 MG/2 ML NEBU. NEB SCH ×2 (07:43→20:00)
[2018-12-31 08:00] VITALS: BP 129/60
[2018-12-31] MEDS: POLYETHYLENE GLYCOL 3350 17 GM PACKET. PO SCH (08:07)
[2018-12-31] MEDS: SENNOSIDES 8.6 MG TABLET PO SCH ×2 (08:07→20:20)
[2018-12-31] MEDS: LISINOPRIL 20 MG TABLET PO SCH (08:08)
[2018-12-31] MEDS: AZITHROMYCIN 250 MG TABLET. PO SCH (08:09)
[2018-12-31] MEDS: amLODIPine BESYLATE 5 MG TABLET PO SCH (08:09)
[2018-12-31] MEDS: oxyCODONE ER 15 MG TAB.ER.12H PO SCH ×2 (08:10→20:20)
[2018-12-31] MEDS: CITALOPRAM 20 MG TABLET. PO SCH (08:10)
[2018-12-31] MEDS: FLUTICASONE 50MCG/NASAL SPRAY 16GM BOTTLE. NS SCH (08:10)
[2018-12-31] MEDS: LACTOBACILLUS RHAMNOSUS GG 1 CAPSULE. PO SCH ×2 (08:10→20:19)
--- NOTE | 2018-12-31 08:43 | PDOC ---
PULMONARY PROGRESS NOTES Subjective has sob, cough better, no pain, was caught in room smoking e cig Vitals Vital Signs Date Time Temp Pulse Resp B/P (MAP) Pulse Ox O2 Delivery O2 Flow Rate FiO2 12/31/18 08:10 93 Room Air 12/31/18 08:09 77 133/67 12/30/18 23:10 98.3 18 98.3 ROS: No Nausea, No Chest Pain General: Alert, Mild Distress HEENT: Other (nc at perrl ) Lungs: Other (a few end exp wheezing) Cardiovascular: S1, S2 Abdomen: Soft, Non-tender Neuro Exam: Alert Extremities: No Edema Skin: Warm Labs Laboratory Tests Test 12/30/18 08:00 12/30/18 08:20 Sodium Level 139 mmol/L (136-145) Potassium Level 4.0 mmol/L (3.5-5.1) Chloride Level 103 mmol/L (98-107) Carbon Dioxide Level 28 mmol/L (21-32) Anion Gap 8 (6-14) Blood Urea Nitrogen 25 mg/dL (7-20) Creatinine 1.0 mg/dL (0.6-1.0) Estimated GFR (Cockcroft-Gault) 57.4 BUN/Creatinine Ratio 25 (6-20) Glucose Level 123 mg/dL (70-99) Calcium Level 8.8 mg/dL (8.5-10.1) Total Bilirubin 0.2 mg/dL (0.2-1.0) Aspartate Amino Transf (AST/SGOT) 15 U/L (15-37) Alanine Aminotransferase (ALT/SGPT) 24 U/L (14-59) Alkaline Phosphatase 72 U/L (46-116) Total Protein 6.6 g/dL (6.4-8.2) Albumin 3.1 g/dL (3.4-5.0) Albumin/Globulin Ratio 0.9 (1.0-1.7) White Blood Count 14.4 x10^3/uL (4.0-11.0) Red Blood Count 4.95 x10^6/uL (3.50-5.40) Hemoglobin 14.8 g/dL (12.0-15.5) Hematocrit 45.1 % (36.0-47.0) Mean Corpuscular Volume 91 fL (79-100) Mean Corpuscular Hemoglobin 30 pg (25-35) Mean Corpuscular Hemoglobin Concent 33 g/dL (31-37) Red Cell Distribution Width 14.8 % (11.5-14.5) Platelet Count 268 x10^3/uL (140-400) Neutrophils (%) (Auto) 64 % (31-73) Lymphocytes (%) (Auto) 25 % (24-48) Monocytes (%) (Auto) 10 % (0-9) Eosinophils (%) (Auto) 1 % (0-3) Basophils (%) (Auto) 1 % (0-3) Neutrophils # (Auto) 9.3 x10^3uL (1.8-7.7) Lymphocytes # (Auto) 3.6 x10^3/uL (1.0-4.8) Monocytes # (Auto) 1.4 x10^3/uL (0.0-1.1) Eosinophils # (Auto) 0.1 x10^3/uL (0.0-0.7) Basophils # (Auto) 0.1 x10^3/uL (0.0-0.2) Medications Active Scripts Medications Dose Route/Sig Max Daily Dose Days Date Category Oxycodone Hcl 5 Mg Capsule 10 Mg PO PRN Q4HRS PRN 12/29/18 Reported Promethazine Hcl 25 Mg Tablet 25 Mg PO PRN Q6HRS PRN 12/29/18 Reported Cyclobenzaprine Hcl 10 Mg Tablet 10 Mg PO TID 12/29/18 Reported Alprazolam 0.5 Mg Tablet 1 Mg PO TID PRN 12/29/18 Reported Senokot (Sennosides) 8.6 Mg Tablet 8.6 Mg PO BID 12/29/18 Reported Atrovent Hfa (Ipratropium [place]) 12.9 Gm Hfa.aer.ad 1 Puff IH QID 12/29/18 Reported Oxycontin (Oxycodone HCl) 60 Mg Tab.er.12h 60 Mg PO BID 12/29/18 Reported Escitalopram Oxalate 10 Mg Tablet 10 Mg PO DAILY 12/29/18 Reported Miralax (Polyethylene Glycol 3350) 17 Gm Powd.pack 1 Packet PO DAILY 01/28/18 Reported Albuterol Sulfate Neb Soln (Albuterol Sulfate) 2.5 Mg/3 Ml Vial.neb 1 Vial NEB PRN Q4HRS PRN 01/27/18 Reported Flonase Allergy Relief (Fluticasone Propionate) 9.9 Ml [place].susp 2 Sprays NS DAILY 01/27/18 Reported Lisinopril 40 Mg Tablet 1 Tab PO DAILY 01/27/18 Reported Vitamin D3 (Cholecalciferol (Vitamin D3)) 5,000 Unit Tablet 1 Tab PO WEEKLY 01/27/[address] reviewed 1. Tiny right pulmonary nodule which in retrospect was present on 01/31/2018 but is better demonstrated on today's thinner slices. Depending on the patient's risk factors, CT follow-up is suggested to establish stability. 2. Coronary calcifications. 3. No esophageal mass is identified. Correlation with endoscopic findings is suggested. Impression . IMPRESSION: 1. Dyspnea secondary to acute exacerbation of chronic obstructive pulmonary disease triggered by acute bronchitis. 2. Acute bronchitis, CT chest, no infilt 3. Chronic pain syndrome, on chronic narcotics. 4. History of right renal cell cancer, status post right nephrectomy and being followed at and has been told that she has cancer on her left kidney as well. Plan . RECOMMENDATIONS: 1. Continue with present antibiotics, Rocephin and Zithromax. 2. Continue bronchodilators. 3. change solumedrol to q 12 , cont ICS. 4. CT chest reviewed. 5. Pain management per PCP. 6. Urology consult, if not done. 7. discussed w pt, rn, rn to take away her e cig we will follow along with you. GURWINDER KOHLI MD Dec 31, 2018 08:43
--- NOTE | 2018-12-31 09:19 | PDOC ---
PROGRESS NOTES History of Present Illness History of Present Illness Assessment/Plan Assessment/Plan IMPRESSION: 1. Acute respiratory failure secondary to acute exacerbation of chronic obstructive pulmonary disease. 2. Acute exacerbation of chronic obstructive pulmonary disease. 3. hypercapnic respiratory failure. 4. Tobacco dependence. CONTINUOUS 5. Acute bronchitis. 6. HX THC ABUSE 7. Chronic pain syndrome 8. chest pain with neg troponin i series 9- fibromyalgia and chronic pain 10 anxiety and depression 11 hip pain and back pain 12. Diffuse thickening of the esophagus. If esophageal pathology is suspect endoscopy should be considered. BY CT [address] Mild nonspecific esophageal thickening, possibly indicating esophagitis. NO MASS NO THIS admit CT 13. Nodules associated with the right lobe of the thyroid. These could be further evaluated with nonemergent ultrasound if clinically warranted 14. 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 ON MRI 2015 L/S 15. INTRACTABLE BACK PAIN AND RADICULOPATHY, REFER TO PAIN CLINIC PLAN: 1. The patient DID not qualify for Trilogy.IN THE PAST 2. instructed on the importance of discontinuing tobacco use. 3. IV ANTIBIOTICS ROCEPHIN, ZITHROMAX 4. DUONEBS QID 5. PULM CONSULT 6. echo 7. tele 8. cardiology consult 9. dvt prophylaxis 10. encouraged narcotic taper and discontinue with hx COPD 11. CONSULT DR KAPLAN 12. out pt GI CONSULT [facility] 34 MIN PT EXAM, CHART REVIEW, > 50% OF TIME WITH EXAM, CHART REVIEW, pt care coordination Vitals Vitals Vital Signs Date Time Temp Pulse Resp B/P (MAP) Pulse Ox O2 Delivery O2 Flow Rate FiO2 12/31/18 09:09 93 Room Air 12/31/18 08:09 77 133/67 12/31/18 08:00 97.5 18 97.5 Physical Exam General: Alert, Oriented X3, Cooperative, No acute distress, mild distress Heart: Regular rate, Normal S1, Normal S2 Lungs: Other (a few end exp wheezing) Abdomen: Normal bowel sounds, Soft, No tenderness Extremities: No cyanosis, No edema, Normal pulses Skin: No breakdown, No significant lesion Assessment and Plan Assessmemt and Plan Problems Medical Problems: (1) Chronic pain Status: Acute (2) COPD exacerbation Status: Acute Comment Review of Relevant I have reviewed the following items rodolfo (where applicable) has been applied. Labs Laboratory Tests Test 4/20/19 08:00 12/30/18 08:20 Sodium Level 139 mmol/L (136-145) Potassium Level 4.0 mmol/L (3.5-5.1) Chloride Level 103 mmol/L (98-107) Carbon Dioxide Level 28 mmol/L (21-32) Anion Gap 8 (6-14) Blood Urea Nitrogen 25 mg/dL (7-20) Creatinine 1.0 mg/dL (0.6-1.0) Estimated GFR (Cockcroft-Gault) 57.4 BUN/Creatinine Ratio 25 (6-20) Glucose Level 123 mg/dL (70-99) Calcium Level 8.8 mg/dL (8.5-10.1) Total Bilirubin 0.2 mg/dL (0.2-1.0) Aspartate Amino Transf (AST/SGOT) 15 U/L (15-37) Alanine Aminotransferase (ALT/SGPT) 24 U/L (14-59) Alkaline Phosphatase 72 U/L (46-116) Total Protein 6.6 g/dL (6.4-8.2) Albumin 3.1 g/dL (3.4-5.0) Albumin/Globulin Ratio 0.9 (1.0-1.7) White Blood Count 14.4 x10^3/uL (4.0-11.0) Red Blood Count 4.95 x10^6/uL (3.50-5.40) Hemoglobin 14.8 g/dL (12.0-15.5) Hematocrit 45.1 % (36.0-47.0) Mean Corpuscular Volume 91 fL (79-100) Mean Corpuscular Hemoglobin 30 pg (25-35) Mean Corpuscular Hemoglobin Concent 33 g/dL (31-37) Red Cell Distribution Width 14.8 % (11.5-14.5) Platelet Count 268 x10^3/uL (140-400) Neutrophils (%) (Auto) 64 % (31-73) Lymphocytes (%) (Auto) 25 % (24-48) Monocytes (%) (Auto) 10 % (0-9) Eosinophils (%) (Auto) 1 % (0-3) Basophils (%) (Auto) 1 % (0-3) Neutrophils # (Auto) 9.3 x10^3uL (1.8-7.7) Lymphocytes # (Auto) 3.6 x10^3/uL (1.0-4.8) Monocytes # (Auto) 1.4 x10^3/uL (0.0-1.1) Eosinophils # (Auto) 0.1 x10^3/uL (0.0-0.7) Basophils # (Auto) 0.1 x10^3/uL (0.0-0.2) Microbiology 12/29/18 Blood Culture - Preliminary, Resulted NO GROWTH AFTER 2 DAYS Medications Current Medications Aspirin (Raudel Aspirin) 325 mg 1X ONCE PO Last administered on 12/28/18at 23:29 ; Start 12/28/18 at 23:00; Stop 12/28/18 at 23:01; Status DC Sodium Chloride 1,000 ml @ 1,000 mls/hr 1X ONCE IV Last administered on at 23:29; Start 12/28/18 at 23:00; Stop 12/28/18 at 23:59; Status DC Dexamethasone Sodium Phosphate (Decadron) 10 mg 1X ONCE IV ; Start 12/28/18 at 23:00; Stop 12/28/18 at 23:01; Status DC Lorazepam (Ativan) 1 mg 1X ONCE IV Last administered on 12/29/18at 00:00; Start 12/28/18 at 23:45; Stop 12/28/18 at 23:46; Status DC Dexamethasone Sodium Phosphate (Decadron) 10 mg 1X ONCE IV Last administered on 12/29/18at 00:38; Start 12/29/18 at 00:00; Stop 12/29/18 at 00:01; Status DC Ondansetron HCl (Zofran) 4 mg PRN Q8HRS PRN IV NAUSEA/VOMITING Last administered on 12/29/18at 00:38; Start 12/29/18 at 00:30; Stop 12/30/18 at 00:29 ; Status DC Hydromorphone HCl (Dilaudid) 0.5 mg Q4HRS PRN IV PAIN; Start 12/29/18 at 00:15 ; Stop 12/29/18 at 00:23; Status DC Oxycodone/ Acetaminophen (Percocet 10/325) 1 tab PRN Q4HRS PRN PO PAIN Last administered on 12/29/18 00:38; Start 12/29/18 at 00:30; Stop 12/29/18 at 02:45 ; Status DC Albuterol Sulfate (Ventolin Neb Soln) 2.5 mg PRN QID PRN NEB WHEEZING Last administered on 12/29/18 07:59; Start 12/29/18 at 01:00; Stop 12/29/18 at 11:35 ; Status DC Oxycodone HCl (OxyCONTIN) 10 mg Q12HR PO Last administered on 12/29/18 09:05; Start 12/29/18 at 09:00; Stop 12/29/18 at 11:38; Status DC Oxycodone HCl (Roxicodone) 10 mg PRN Q6HRS PRN PO PAIN Last administered on 09:07; Start 12/29/18 at 02:45; Stop 12/29/18 at 12:16; Status DC Piperacillin Sod/ Tazobactam Sod (Zosyn Per Pharmacy) 1 each PRN DAILY PRN MC SEE COMMENTS; Start 12/29/18 at 11:30; Status Cancel Albuterol Sulfate (Ventolin Neb Soln) 2.5 mg PRN Q4HRS PRN NEB WHEEZING Last administered on 12/30/18 22:33; Start 12/29/18 at 11:30 Alprazolam (Xanax) 1 mg TID PRN PO ANXIETY / AGITATION Last administered on 06:49; Start 12/29/18 at 11:30 Lisinopril (Prinivil) 40 mg DAILY PO Last administered on 12/31/18 08:08; Start 12/29/18 at 12:00 Vitamin D (Vitamin D3) 5,000 unit WEEKLY PO Last administered on 12/30/18 08: 19; Start 12/30/18 at 09:00 Citalopram Hydrobromide (CeleXA) 20 mg DAILY PO Last administered on 12/31/18at 08:10; Start 12/29/18 at 12:00 Fluticasone Propionate (Flonase) 2 spray DAILY NS ; Start 12/29/18 at 12:00 Ipratropium [place] (Atrovent) 0.5 mg RTQID NEB Last administered on 12/31/18 07:43; Start 12/29/18 at 12:00 Oxycodone HCl (Roxicodone) 10 mg PRN Q4HRS PRN PO SEVERE PAIN Last administered on 12/31/18 08:08; Start 12/29/18 at 11:45 Oxycodone HCl (OxyCONTIN) 60 mg Q12HR PO Last administered on 12/31/18 08:10; Start 12/29/18 at 21:00 Polyethylene Glycol (miraLAX PACKET) 17 gm DAILY PO Last administered on 08:07; Start 12/29/18 at 12:00 Promethazine HCl (Phenergan) 25 mg PRN Q6HRS PRN PO NAUSEA/VOMITING; Start at 11:45 Sennosides (Senna) 8.6 mg BID PO Last administered on 12/31/18 08:07; Start at 12:00 Ceftriaxone Sodium (Rocephin) 1 gm Q24H IVP Last administered on 12/30/18 13: 01; Start 12/29/18 at 12:00 Azithromycin (Zithromax) 250 mg DAILY PO Last administered on 12/31/18 08:09; Start 12/29/18 at 12:00 Enoxaparin Sodium (Lovenox 40mg Syringe) 40 mg Q24H SQ Last administered on 17:12; Start 12/29/18 at 16:00 Lactobacillus Rhamnosus (Culturelle) 1 cap BID PO Last administered on 08:10; Start 12/29/18 at 21:00 Amlodipine Besylate (Norvasc) 5 mg DAILY PO Last administered on 12/31/18 08: 09; Start 12/30/18 at 09:00 Methylprednisolone Sodium Succinate (SOLU-Medrol 40MG VIAL) 40 mg Q8HRS IV Last administered on 12/31/18 06:12; Start 12/30/18 at 09:00 Budesonide (Pulmicort) 0.5 mg RTBID NEB Last administered on 12/31/18 07:43; Start 12/30/18 at 09:00 Zolpidem Tartrate (Ambien) 5 mg PRN QHS PRN PO INSOMNIA; Start 12/30/18 at 20: 00 Active Scripts Active Reported Oxycodone Hcl 5 Mg Capsule 10 Mg PO PRN Q4HRS PRN Promethazine Hcl 25 Mg Tablet 25 Mg PO PRN Q6HRS PRN Cyclobenzaprine Hcl 10 Mg Tablet 10 Mg PO TID Alprazolam 0.5 Mg Tablet 1 Mg PO TID PRN Senokot (Sennosides) 8.6 Mg Tablet 8.6 Mg PO BID Atrovent Hfa (Ipratropium [place]) 12.9 Gm Hfa.aer.ad 1 Puff IH QID Oxycontin (Oxycodone HCl) 60 Mg Tab.er.12h 60 Mg PO BID Escitalopram Oxalate 10 Mg Tablet 10 Mg PO DAILY Miralax (Polyethylene Glycol 3350) 17 Gm Powd.pack 1 Packet PO DAILY Albuterol Sulfate Neb Soln (Albuterol Sulfate) 2.5 Mg/3 Ml Vial.neb 1 Vial NEB PRN Q4HRS PRN Flonase Allergy Relief (Fluticasone Propionate) 9.9 Ml [place].susp 2 Sprays NS DAILY Lisinopril 40 Mg Tablet 1 Tab PO DAILY Vitamin D3 (Cholecalciferol (Vitamin D3)) 5,000 Unit Tablet 1 Tab PO WEEKLY Vitals/I & O Vital Sign - Last 24 Hours 12/30/18 12/30/18 12/30/18 12/30/18 09:49 11:00 12:11 13:02 Temp 98.5 98.5 Pulse 71 Resp 20 B/P (MAP) 138/80 (99) Pulse Ox 96 93 96 96 O2 Delivery Room Air Room Air Room Air Room Air 12/30/18 12/30/18 12/30/18 12/30/18 15:00 15:42 17:12 19:10 Temp 99.0 98.5 99.0 98.5 Pulse 65 66 Resp 20 18 B/P (MAP) 101/50 (67) 134/71 (92) Pulse Ox 93 96 92 O2 Delivery Room Air Room Air Room Air Room Air 12/30/18 12/30/18 12/30/18 12/30/18 20:00 20:43 22:33 23:10 Temp 98.3 98.3 Pulse 77 Resp 18 B/P (MAP) 133/67 (89) Pulse Ox 93 O2 Delivery Room Air Room Air Room Air Room Air 12/31/18 12/31/18 12/31/18 12/31/18 00:43 01:56 07:45 07:49 O2 Delivery Room Air Room Air Room Air Room Air 12/31/18 12/31/18 12/31/18 12/31/18 08:00 08:08 08:08 08:09 Temp 97.5 97.5 Pulse 68 77 77 Resp 18 B/P (MAP) 129/60 (83) 133/67 133/67 Pulse Ox 92 93 O2 Delivery Room Air Room Air 12/31/18 12/31/18 08:10 09:09 Pulse Ox 93 93 O2 Delivery Room Air Room Air Intake and Output 12/30/18 12/30/18 12/31/18 14:59 22:59 06:59 Intake Total 800 ml 0 ml Balance 800 ml 0 ml LENO SAM MD Dec 31, 2018 09:19
[2018-12-31 11:00] VITALS: BP 132/61
[2018-12-31] MEDS: cefTRIAXone IV Push 1 GM VIAL. IVP SCH (12:38)
[2018-12-31 15:00] VITALS: BP 137/55
[2018-12-31] MEDS: ENOXAPARIN 40 MG/0.4 ML SYRINGE. SQ SCH (15:10)
--- NOTE | 2018-12-31 19:31 | NUR ---
Chad RN spoke to pt and informed her of needing e cig removed from room. Pt verbalized understanding and states did not smoke today. However she did give nurse her e cig and cartridge is currently in her basket in med room. No further complaints at this time.
[2018-12-31 19:58] VITALS: BP 149/66
[2018-12-31 23:30] VITALS: BP 126/56
[2019-01-01] MEDS: oxyCODONE IR 5 MG TABLET PO PRN ×5 (02:48→20:44)
[2019-01-01 03:48] VITALS: BP 140/62
[2019-01-01] MEDS: ALPRAZolam 1 MG TABLET PO PRN ×3 (05:58→22:28)
[2019-01-01] MEDS: methylPREDNISolone SOD SUCC PF 40 MG/ML VIAL. IV SCH ×3 (05:58→20:45)
[2019-01-01] MEDS: IPRATROPIUM BROMIDE 0.5 MG/2.5 ML NEBU. NEB SCH ×4 (07:42→19:42)
[2019-01-01] MEDS: BUDESONIDE 0.5 MG/2 ML NEBU. NEB SCH ×2 (07:43→19:42)
[2019-01-01 07:55] VITALS: BP 158/76
[2019-01-01 08:11] LABS: BASO % 0 % (0-3); EOS % 0 % (0-3); HEMATOCRIT 43.8 % (36.0-47.0); HEMOGLOBIN 14.6 g/dL (12.0-15.5); LYMPH # 1.4 x10^3/uL (1.0-4.8); LYMPH % 8 % (24-48); MEAN CORPUSCULAR HEMOGLOBIN 30 pg (25-35); MEAN CORPUSCULAR HGB CONC 33 g/dL (31-37); MEAN CORPUSCULAR VOLUME 91 fL (79-100); MONO # 1.6 x10^3/uL (0.0-1.1); MONO % 9 % (0-9); NEUT # 13.9 x10^3uL (1.8-7.7); NEUT % 82 % (31-73); PLATELET COUNT 305 x10^3/uL (140-400); RED BLOOD COUNT 4.79 x10^6/uL (3.50-5.40); RED CELL DISTRIBUTION WIDTH 14.6 % (11.5-14.5); WHITE BLOOD COUNT 16.9 x10^3/uL (4.0-11.0)
[2019-01-01 08:57] LABS: ALBUMIN/GLOBULIN RATIO 0.8 (1.0-1.7); CALCIUM 8.8 mg/dL (8.5-10.1); GFR 57.4; TOTAL BILIRUBIN 0.1 mg/dL (0.2-1.0); TOTAL PROTEIN 6.7 g/dL (6.4-8.2)
[2019-01-01] MEDS: FLUTICASONE 50MCG/NASAL SPRAY 16GM BOTTLE. NS SCH (09:00)
--- NOTE | 2019-01-01 09:07 | PDOC2 ---
LATRICE PATEL BUSINESS EDITOR 01/01/19 0907: UROLOGY CONSULT Date of Consult Date of Consult DATE: 01/01/19 TIME: 08:58 Source Source: Patient History of Present Illness Reason for Visit: Patient is a 58 year old female with multiple medical problems to include a history of kidney cancer. She had her right kidney removed for a dx of kidney cancer by Dr. Berrios about 6-7 years ago and was readmitted by for a fall back in November. At this time some more films were done, and she reports that they found cancer in her right kidney as well. She denies dysuria, hematuria or flank pain in the left side. She requested Urology consult because she wants al l of her physicians here at [facility] and wants an opinion from a [facility] physician regarding the findings on her left kidney. Her past medical Urology records are not immediately available for review. Past Medical History Cardiovascular: HTN Pulmonary: COPD CENTRAL NERVOUS SYSTEM: Periperal neuropathy GI: GERD, Other (pancreatitis ) Heme/Onc: Cancer (kidney ), Other (DVT) Psych: Anxiety, Depression Musculoskeletal: Osteoarthritis, Other (DDD) Rheumatologic: Fibromyalgia Infectious disease: No pertinent hx ENT: No pertinent hx Renal/: No pertinent hx, Other (Kidney cancer ) Endocrine: No pertinent hx Dermatology: No pertinent hx Past Surgical History Past Surgical History: Hysterectomy, Other (right nephrectomy ) Family History Family History: Heart Disease (brother ) Social History Quit (now vapes) ALCOHOL: none Drugs: Marijuana Lives: Alone Current Problem List Problems: (1) Back pain Allergies Allergies: Coded Allergies: codeine (Verified Allergy, Intermediate, hives, 02/27/15) fentanyl (Verified Allergy, Intermediate, Nausea and Vomiting, 02/27/15) hives morphine (Verified Adverse Reaction, Intermediate, vomiting, 02/27/15) ROS Review Of Systems: CONSTITUTIONAL: No fever or chills EYES: No recent changes SKIN: No rash or itching CARDIOVASCULAR: No chest pain, syncope, palpitations, or edema RESPIRATORY: No SOB or cough GASTROINTESTINAL: No nausea, vomiting or abdominal pain NEUROLOGICAL: No headaches or weakness ENDOCRINE: No cold or heat intolerance GENITOURINARY: No urgency or frequency of urination MUSCULOSKELETAL: No back pain or joint pain LYMPHATICS: No enlarged lymph nodes PSYCHIATRIC: No anxiety or depression Physical Exam Physical Exam: General: Pleasant, no acute distress, well groomed Eyes: conjunctiva anicteric, eyes full range of motion ENT: moist oral mucosa, normal dentition Neck: Trachea midline, no masses Respiratory: unlabored breathing, not using accessory muscles, Abdomen: Soft, tender bilaterally lower quadrants, nondistended, no hepatosplenomegaly, no masses Skin: no rashes or skin lesions on visualized skin Psych: normal mood, affect. Alert and oriented x 3. Vitals VITALS Vital Signs Date Time Temp Pulse Resp B/P (MAP) Pulse Ox O2 Delivery O2 Flow Rate FiO2 01/01/19 07:55 97.8 68 19 158/76 (103) 93 Room Air 97.8 Labs Labs Laboratory Tests Test 01/01/19 07:33 White Blood Count 16.9 x10^3/uL (4.0-11.0) Red Blood Count 4.79 x10^6/uL (3.50-5.40) Hemoglobin 14.6 g/dL (12.0-15.5) Hematocrit 43.8 % (36.0-47.0) Mean Corpuscular Volume 91 fL (79-100) Mean Corpuscular Hemoglobin 30 pg (25-35) Mean Corpuscular Hemoglobin Concent 33 g/dL (31-37) Red Cell Distribution Width 14.6 % (11.5-14.5) Platelet Count 305 x10^3/uL (140-400) Neutrophils (%) (Auto) 82 % (31-73) Lymphocytes (%) (Auto) 8 % (24-48) Monocytes (%) (Auto) 9 % (0-9) Eosinophils (%) (Auto) 0 % (0-3) Basophils (%) (Auto) 0 % (0-3) Neutrophils # (Auto) 13.9 x10^3uL (1.8-7.7) Lymphocytes # (Auto) 1.4 x10^3/uL (1.0-4.8) Monocytes # (Auto) 1.6 x10^3/uL (0.0-1.1) Eosinophils # (Auto) 0.0 x10^3/uL (0.0-0.7) Basophils # (Auto) 0.0 x10^3/uL (0.0-0.2) Laboratory Tests Test 01/01/19 07:33 White Blood Count 16.9 x10^3/uL (4.0-11.0) Red Blood Count 4.79 x10^6/uL (3.50-5.40) Hemoglobin 14.6 g/dL (12.0-15.5) Hematocrit 43.8 % (36.0-47.0) Mean Corpuscular Volume 91 fL (79-100) Mean Corpuscular Hemoglobin 30 pg (25-35) Mean Corpuscular Hemoglobin Concent 33 g/dL (31-37) Red Cell Distribution Width 14.6 % (11.5-14.5) Platelet Count 305 x10^3/uL (140-400) Neutrophils (%) (Auto) 82 % (31-73) Lymphocytes (%) (Auto) 8 % (24-48) Monocytes (%) (Auto) 9 % (0-9) Eosinophils (%) (Auto) 0 % (0-3) Basophils (%) (Auto) 0 % (0-3) Neutrophils # (Auto) 13.9 x10^3uL (1.8-7.7) Lymphocytes # (Auto) 1.4 x10^3/uL (1.0-4.8) Monocytes # (Auto) 1.6 x10^3/uL (0.0-1.1) Eosinophils # (Auto) 0.0 x10^3/uL (0.0-0.7) Basophils # (Auto) 0.0 x10^3/uL (0.0-0.2) Assessment/Plan Assessment/Plan Will get records from and Dr. Berrios, orders entered for nursing to obtain A follow up appointment has been arranged for patient with Dr. Patton of [facility] [place] on 01/24/19 at 120 pm. Appointment card and new patient paperwork given to patient. Ok to discharge from a Urology perspective, whenever medical team is ready LYDIA BIRD MD 01/01/19 1321: UROLOGY CONSULT Assessment/Plan Assessment/Plan I have seen patient and reviewed the records. We are waiting for imaging studies from . She may be dismissed when acute issues resolved. I told her we would be very conservative re: solitary kidney. LATRICE PATEL APRN Jan 01, 2019 09:07 LYDIA BIRD MD Jan 01, 2019 13:21
[2019-01-01 09:36] LABS: % BANDS 1 % (0-9); % LYMPHS 12 % (24-48); % MONOS 3 % (0-10); % SEGS 84 % (35-66); PLT ESTIMATE ADEQUATE (ADEQUATE)
[2019-01-01] MEDS: LISINOPRIL 20 MG TABLET PO SCH (09:46)
[2019-01-01] MEDS: CITALOPRAM 20 MG TABLET. PO SCH (09:46)
[2019-01-01] MEDS: AZITHROMYCIN 250 MG TABLET. PO SCH (09:46)
[2019-01-01] MEDS: LACTOBACILLUS RHAMNOSUS GG 1 CAPSULE. PO SCH ×2 (09:46→20:43)
[2019-01-01] MEDS: amLODIPine BESYLATE 5 MG TABLET PO SCH (09:48)
[2019-01-01] MEDS: oxyCODONE ER 15 MG TAB.ER.12H PO SCH ×2 (09:49→20:44)
[2019-01-01] MEDS: POLYETHYLENE GLYCOL 3350 17 GM PACKET. PO SCH (09:49)
[2019-01-01] MEDS: SENNOSIDES 8.6 MG TABLET PO SCH ×2 (09:49→20:46)
[2019-01-01 10:53] VITALS: BP 146/79
[2019-01-01] MEDS: cefTRIAXone IV Push 1 GM VIAL. IVP SCH (11:40)
--- NOTE | 2019-01-01 12:48 | PDOC ---
PROGRESS NOTES Chief Complaint Chief Complaint 1. Acute respiratory failure secondary to acute exacerbation of chronic obstructive pulmonary disease. 2. Acute exacerbation of chronic obstructive pulmonary disease. 3. hypercapnic respiratory failure. 4. Tobacco dependence. CONTINUOUS 5. Acute bronchitis. 6. HX THC ABUSE 7. Chronic pain syndrome 8. chest pain with neg troponin i series 9- fibromyalgia and chronic pain 10 anxiety and depression 11 hip pain and back pain 12. Diffuse thickening of the esophagus. If esophageal pathology is suspect endoscopy should be considered. BY CT [address] Mild nonspecific esophageal thickening, possibly indicating esophagitis. NO MASS NO THIS admit CT 13. Nodules associated with the right lobe of the thyroid. These could be further evaluated with nonemergent ultrasound if clinically warranted 14. 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 ON MRI 2015 L/S 15. INTRACTABLE BACK PAIN History of Present Illness History of Present Illness pain control discussed at length, she feels she cannot leave the hospital instructed on the importance of discontinuing tobacco use. cont IV ANTIBIOTICS ROCEPHIN, ZITHROMAX, duonebs needs primary care f/u D C tele encouraged narcotic taper and discontinue 38 MIN PT EXAM, , discussed pain at length, DC plan, chart review, needs PT and ot,and physiatry and social work, Vitals Vitals Vital Signs Date Time Temp Pulse Resp B/P (MAP) Pulse Ox O2 Delivery O2 Flow Rate FiO2 01/01/19 11:55 18 93 Room Air 01/01/19 10:53 98.3 68 146/79 (101) 98.3 Physical Exam General: Alert, Oriented X3, Cooperative, No acute distress, mild distress Heart: Regular rate, Normal S1, Normal S2 Lungs: Other (a few end exp wheezing) Abdomen: Normal bowel sounds, Soft, No tenderness Extremities: No cyanosis, No edema, Normal pulses Skin: No breakdown, No significant lesion Labs LABS Laboratory Tests Test 01/01/19 07:33 White Blood Count 16.9 x10^3/uL (4.0-11.0) Red Blood Count 4.79 x10^6/uL (3.50-5.40) Hemoglobin 14.6 g/dL (12.0-15.5) Hematocrit 43.8 % (36.0-47.0) Mean Corpuscular Volume 91 fL (79-100) Mean Corpuscular Hemoglobin 30 pg (25-35) Mean Corpuscular Hemoglobin Concent 33 g/dL (31-37) Red Cell Distribution Width 14.6 % (11.5-14.5) Platelet Count 305 x10^3/uL (140-400) Neutrophils (%) (Auto) 82 % (31-73) Lymphocytes (%) (Auto) 8 % (24-48) Monocytes (%) (Auto) 9 % (0-9) Eosinophils (%) (Auto) 0 % (0-3) Basophils (%) (Auto) 0 % (0-3) Neutrophils # (Auto) 13.9 x10^3uL (1.8-7.7) Lymphocytes # (Auto) 1.4 x10^3/uL (1.0-4.8) Monocytes # (Auto) 1.6 x10^3/uL (0.0-1.1) Eosinophils # (Auto) 0.0 x10^3/uL (0.0-0.7) Basophils # (Auto) 0.0 x10^3/uL (0.0-0.2) Segmented Neutrophils % 84 % (35-66) Band Neutrophils % 1 % (0-9) Lymphocytes % 12 % (24-48) Monocytes % 3 % (0-10) Platelet Estimate Adequate (ADEQUATE) Sodium Level 137 mmol/L (136-145) Potassium Level 5.0 mmol/L (3.5-5.1) Chloride Level 101 mmol/L (98-107) Carbon Dioxide Level 31 mmol/L (21-32) Anion Gap 5 (6-14) Blood Urea Nitrogen 24 mg/dL (7-20) Creatinine 1.0 mg/dL (0.6-1.0) Estimated GFR (Cockcroft-Gault) 57.4 BUN/Creatinine Ratio 24 (6-20) Glucose Level 123 mg/dL (70-99) Calcium Level 8.8 mg/dL (8.5-10.1) Total Bilirubin 0.1 mg/dL (0.2-1.0) Aspartate Amino Transf (AST/SGOT) 13 U/L (15-37) Alanine Aminotransferase (ALT/SGPT) 27 U/L (14-59) Alkaline Phosphatase 74 U/L (46-116) Total Protein 6.7 g/dL (6.4-8.2) Albumin 3.0 g/dL (3.4-5.0) Albumin/Globulin Ratio 0.8 (1.0-1.7) Assessment and Plan Assessmemt and Plan Problems Medical Problems: (1) Chronic pain Status: Acute (2) COPD exacerbation Status: Acute Comment Review of Relevant I have reviewed the following items rodolfo (where applicable) has been applied. Labs Laboratory Tests Test 01/01/19 07:33 White Blood Count 16.9 x10^3/uL (4.0-11.0) Red Blood Count 4.79 x10^6/uL (3.50-5.40) Hemoglobin 14.6 g/dL (12.0-15.5) Hematocrit 43.8 % (36.0-47.0) Mean Corpuscular Volume 91 fL (79-100) Mean Corpuscular Hemoglobin 30 pg (25-35) Mean Corpuscular Hemoglobin Concent 33 g/dL (31-37) Red Cell Distribution Width 14.6 % (11.5-14.5) Platelet Count 305 x10^3/uL (140-400) Neutrophils (%) (Auto) 82 % (31-73) Lymphocytes (%) (Auto) 8 % (24-48) Monocytes (%) (Auto) 9 % (0-9) Eosinophils (%) (Auto) 0 % (0-3) Basophils (%) (Auto) 0 % (0-3) Neutrophils # (Auto) 13.9 x10^3uL (1.8-7.7) Lymphocytes # (Auto) 1.4 x10^3/uL (1.0-4.8) Monocytes # (Auto) 1.6 x10^3/uL (0.0-1.1) Eosinophils # (Auto) 0.0 x10^3/uL (0.0-0.7) Basophils # (Auto) 0.0 x10^3/uL (0.0-0.2) Segmented Neutrophils % 84 % (35-66) Band Neutrophils % 1 % (0-9) Lymphocytes % 12 % (24-48) Monocytes % 3 % (0-10) Platelet Estimate Adequate (ADEQUATE) Sodium Level 137 mmol/L (136-145) Potassium Level 5.0 mmol/L (3.5-5.1) Chloride Level 101 mmol/L (98-107) Carbon Dioxide Level 31 mmol/L (21-32) Anion Gap 5 (6-14) Blood Urea Nitrogen 24 mg/dL (7-20) Creatinine 1.0 mg/dL (0.6-1.0) Estimated GFR (Cockcroft-Gault) 57.4 BUN/Creatinine Ratio 24 (6-20) Glucose Level 123 mg/dL (70-99) Calcium Level 8.8 mg/dL (8.5-10.1) Total Bilirubin 0.1 mg/dL (0.2-1.0) Aspartate Amino Transf (AST/SGOT) 13 U/L (15-37) Alanine Aminotransferase (ALT/SGPT) 27 U/L (14-59) Alkaline Phosphatase 74 U/L (46-116) Total Protein 6.7 g/dL (6.4-8.2) Albumin 3.0 g/dL (3.4-5.0) Albumin/Globulin Ratio 0.8 (1.0-1.7) Laboratory Tests Test 01/01/19 07:33 White Blood Count 16.9 x10^3/uL (4.0-11.0) Red Blood Count 4.79 x10^6/uL (3.50-5.40) Hemoglobin 14.6 g/dL (12.0-15.5) Hematocrit 43.8 % (36.0-47.0) Mean Corpuscular Volume 91 fL (79-100) Mean Corpuscular Hemoglobin 30 pg (25-35) Mean Corpuscular Hemoglobin Concent 33 g/dL (31-37) Red Cell Distribution Width 14.6 % (11.5-14.5) Platelet Count 305 x10^3/uL (140-400) Neutrophils (%) (Auto) 82 % (31-73) Lymphocytes (%) (Auto) 8 % (24-48) Monocytes (%) (Auto) 9 % (0-9) Eosinophils (%) (Auto) 0 % (0-3) Basophils (%) (Auto) 0 % (0-3) Neutrophils # (Auto) 13.9 x10^3uL (1.8-7.7) Lymphocytes # (Auto) 1.4 x10^3/uL (1.0-4.8) Monocytes # (Auto) 1.6 x10^3/uL (0.0-1.1) Eosinophils # (Auto) 0.0 x10^3/uL (0.0-0.7) Basophils # (Auto) 0.0 x10^3/uL (0.0-0.2) Segmented Neutrophils % 84 % (35-66) Band Neutrophils % 1 % (0-9) Lymphocytes % 12 % (24-48) Monocytes % 3 % (0-10) Platelet Estimate Adequate (ADEQUATE) Sodium Level 137 mmol/L (136-145) Potassium Level 5.0 mmol/L (3.5-5.1) Chloride Level 101 mmol/L (98-107) Carbon Dioxide Level 31 mmol/L (21-32) Anion Gap 5 (6-14) Blood Urea Nitrogen 24 mg/dL (7-20) Creatinine 1.0 mg/dL (0.6-1.0) Estimated GFR (Cockcroft-Gault) 57.4 BUN/Creatinine Ratio 24 (6-20) Glucose Level 123 mg/dL (70-99) Calcium Level 8.8 mg/dL (8.5-10.1) Total Bilirubin 0.1 mg/dL (0.2-1.0) Aspartate Amino Transf (AST/SGOT) 13 U/L (15-37) Alanine Aminotransferase (ALT/SGPT) 27 U/L (14-59) Alkaline Phosphatase 74 U/L (46-116) Total Protein 6.7 g/dL (6.4-8.2) Albumin 3.0 g/dL (3.4-5.0) Albumin/Globulin Ratio 0.8 (1.0-1.7) Microbiology 12/29/18 Blood Culture - Preliminary, Resulted NO GROWTH AFTER 3 DAYS Medications Current Medications Aspirin (Raudel Aspirin) 325 mg 1X ONCE PO Last administered on 12/28/18at 23:29; Start 12/28/18 at 23:00; Stop 12/28/18 at 23:01; Status DC Sodium Chloride 1,000 ml @ 1,000 mls/hr 1X ONCE IV Last administered on 12/28/18at 23:29; Start 12/28/18 at 23:00; Stop 12/28/18 at 23:59; Status DC Dexamethasone Sodium Phosphate (Decadron) 10 mg 1X ONCE IV ; Start 12/28/18 at 23:00; Stop 12/28/18 at 23:01; Status DC Lorazepam (Ativan) 1 mg 1X ONCE IV Last administered on 12/29/18at 00:00; Start 12/28/18 at 23:45; Stop 12/28/18 at 23:46; Status DC Dexamethasone Sodium Phosphate (Decadron) 10 mg 1X ONCE IV Last administered on 12/29/18 00:38; Start 12/29/18 at 00:00; Stop 12/29/18 at 00:01; Status DC Ondansetron HCl (Zofran) 4 mg PRN Q8HRS PRN IV NAUSEA/VOMITING Last administered on 12/29/18at 00:38; Start 12/29/18 at 00:30; Stop 12/30/18 at 00:29; Status DC Hydromorphone HCl (Dilaudid) 0.5 mg Q4HRS PRN IV PAIN; Start 12/29/18 at 00:15; Stop 12/29/18 at 00:23; Status DC Oxycodone/ Acetaminophen (Percocet 10/325) 1 tab PRN Q4HRS PRN PO PAIN Last administered on 12/29/18at 00:38; Start 12/29/18 at 00:30; Stop 12/29/18 at 02:45; Status DC Albuterol Sulfate (Ventolin Neb Soln) 2.5 mg PRN QID PRN NEB WHEEZING Last administered on 12/29/18 07:59; Start 12/29/18 at 01:00; Stop 12/29/18 at 11:35; Status DC Oxycodone HCl (OxyCONTIN) 10 mg Q12HR PO Last administered on 12/29/18at 09:05; Start 12/29/18 at 09:00; Stop 12/29/18 at 11:38; Status DC Oxycodone HCl (Roxicodone) 10 mg PRN Q6HRS PRN PO PAIN Last administered on 12/29/18 09:07; Start 12/29/18 at 02:45; Stop 12/29/18 at 12:16; Status DC Piperacillin Sod/ Tazobactam Sod (Zosyn Per Pharmacy) 1 each PRN DAILY PRN MC SEE COMMENTS; Start 12/29/18 at 11:30; Status Cancel Albuterol Sulfate (Ventolin Neb Soln) 2.5 mg PRN Q4HRS PRN NEB WHEEZING Last administered on 12/30/18 22:33; Start 12/29/18 at 11:30 Alprazolam (Xanax) 1 mg TID PRN PO ANXIETY / AGITATION Last administered on 01/01/19 05:58; Start 12/29/18 at 11:30 Lisinopril (Prinivil) 40 mg DAILY PO Last administered on 01/01/19 09:46; Start 12/29/18 at 12:00 Vitamin D (Vitamin D3) 5,000 unit WEEKLY PO Last administered on 12/30/18 08:19; Start 12/30/18 at 09:00 Citalopram Hydrobromide (CeleXA) 20 mg DAILY PO Last administered on 01/01/19 09:46; Start 12/29/18 at 12:00 Fluticasone Propionate (Flonase) 2 spray DAILY NS ; Start 12/29/18 at 12:00 Ipratropium [place] (Atrovent) 0.5 mg RTQID NEB Last administered on 01/01/19 07:42; Start 12/29/18 at 12:00 Oxycodone HCl (Roxicodone) 10 mg PRN Q4HRS PRN PO SEVERE PAIN Last administered on 01/01/19 11:55; Start 12/29/18 at 11:45 Oxycodone HCl (OxyCONTIN) 60 mg Q12HR PO Last administered on 01/01/19 09:49; Start 12/29/18 at 21:00 Polyethylene Glycol (miraLAX PACKET) 17 gm DAILY PO Last administered on 01/01/19 09:49; Start 12/29/18 at 12:00 Promethazine HCl (Phenergan) 25 mg PRN Q6HRS PRN PO NAUSEA/VOMITING; Start 12/29/18 at 11:45 Sennosides (Senna) 8.6 mg BID PO Last administered on 01/01/19 09:49; Start 12/29/18 at 12:00 Ceftriaxone Sodium (Rocephin) 1 gm Q24H IVP Last administered on 01/01/19 11:40; Start 12/29/18 at 12:00 Azithromycin (Zithromax) 250 mg DAILY PO Last administered on 01/01/19 09:46; Start 12/29/18 at 12:00 Enoxaparin Sodium (Lovenox 40mg Syringe) 40 mg Q24H SQ Last administered on 12/31/18 15:10; Start 12/29/18 at 16:00 Lactobacillus Rhamnosus (Culturelle) 1 cap BID PO Last administered on 01/01/19 09:46; Start 12/29/18 at 21:00 Amlodipine Besylate (Norvasc) 5 mg DAILY PO Last administered on 01/01/19 09:48; Start 12/30/18 at 09:00 Methylprednisolone Sodium Succinate (SOLU-Medrol 40MG VIAL) 40 mg Q8HRS IV Last administered on 01/01/19 05:58; Start 12/30/18 at 09:00 Budesonide (Pulmicort) 0.5 mg RTBID NEB Last administered on 01/01/19 07:43; Start 12/30/18 at 09:00 Zolpidem Tartrate (Ambien) 5 mg PRN QHS PRN PO INSOMNIA Last administered on 12/31/18 20:19; Start 12/30/18 at 20:00 Active Scripts Active Reported Oxycodone Hcl 5 Mg Capsule 10 Mg PO PRN Q4HRS PRN Promethazine Hcl 25 Mg Tablet 25 Mg PO PRN Q6HRS PRN Cyclobenzaprine Hcl 10 Mg Tablet 10 Mg PO TID Alprazolam 0.5 Mg Tablet 1 Mg PO TID PRN Senokot (Sennosides) 8.6 Mg Tablet 8.6 Mg PO BID Atrovent Hfa (Ipratropium [place]) 12.9 Gm Hfa.aer.ad 1 Puff IH QID Oxycontin (Oxycodone HCl) 60 Mg Tab.er.12h 60 Mg PO BID Escitalopram Oxalate 10 Mg Tablet 10 Mg PO DAILY Miralax (Polyethylene Glycol 3350) 17 Gm Powd.pack 1 Packet PO DAILY Albuterol Sulfate Neb Soln (Albuterol Sulfate) 2.5 Mg/3 Ml Vial.neb 1 Vial NEB PRN Q4HRS PRN Flonase Allergy Relief (Fluticasone Propionate) 9.9 Ml [place].susp 2 Sprays NS DAILY Lisinopril 40 Mg Tablet 1 Tab PO DAILY Vitamin D3 (Cholecalciferol (Vitamin D3)) 5,000 Unit Tablet 1 Tab PO WEEKLY Vitals/I & O Vital Sign - Last 24 Hours 12/31/18 12/31/18 12/31/18 12/31/18 15:00 16:27 16:43 19:58 Temp 98.0 98.0 98.0 98.0 Pulse 63 66 Resp 20 20 B/P (MAP) 137/55 (82) 149/66 (93) Pulse Ox 94 92 O2 Delivery Room Air Room Air Room Air Room Air 12/31/18 12/31/18 12/31/18 12/31/18 20:00 20:20 21:09 23:30 Temp 98.1 98.1 Pulse 80 Resp 18 B/P (MAP) 126/56 (79) Pulse Ox 90 O2 Delivery Room Air Room Air Room Air Room Air 01/01/19 01/01/19 01/01/19 01/01/19 00:20 02:48 03:48 06:54 Temp 98.3 98.3 Pulse 80 Resp 18 B/P (MAP) 140/62 (88) Pulse Ox 92 O2 Delivery Room Air Room Air Room Air Room Air 01/01/19 01/01/19 01/01/19 01/01/19 07:47 07:55 07:55 08:00 Temp 97.8 97.8 Pulse 68 Resp 19 B/P (MAP) 158/76 (103) Pulse Ox 93 93 93 O2 Delivery Room Air Room Air Room Air Room Air 01/01/19 01/01/19 01/01/19 01/01/19 09:46 09:48 09:49 10:53 Temp 98.3 98.3 Pulse 68 68 68 Resp 18 18 B/P (MAP) 158/76 158/76 146/79 (101) Pulse Ox 93 93 O2 Delivery Room Air Room Air 01/01/19 11:55 Resp 18 Pulse Ox 93 O2 Delivery Room Air Intake and Output 12/31/18 12/31/18 01/01/19 15:00 23:00 07:00 Intake Total 300 ml 450 ml Balance 300 ml 450 ml YANIV LOMELI MD Jan 01, 2019 12:48
--- NOTE | 2019-01-01 14:51 | PDOC ---
PULMONARY PROGRESS NOTES Subjective Pt. is resting comfortably in bed on room air, she reports non-productive cough. She denies any SOB, but reports she is still wheezing. She reporst she is still having chronic neuropathic pain. She denies chest pain, headache, or abdominal pain. She reports she wants to discharge home tomorrow. Vitals Vital Signs Date Time Temp Pulse Resp B/P (MAP) Pulse Ox O2 Delivery O2 Flow Rate FiO2 01/01/19 13:50 18 93 Room Air 01/01/19 10:53 98.3 68 146/79 (101) 98.3 Comments 12 point ROS was reviewed with pt. see HPI ROS: No Nausea, No Chest Pain, No Increase Cough General: Alert, Oriented X4 HEENT: Other (Perrl) Lungs: Wheezing, Other (ex. wheezing in all lobes ) Cardiovascular: S1, S2 Abdomen: Soft, Non-tender Neuro Exam: Alert, Oriented, Normal Speech Extremities: No Edema Skin: Warm, Dry Labs Laboratory Tests Test 01/01/19 07:33 White Blood Count 16.9 x10^3/uL Red Blood Count 4.79 x10^6/uL Hemoglobin 14.6 g/dL Hematocrit 43.8 % Mean Corpuscular Volume 91 fL Mean Corpuscular Hemoglobin 30 pg Mean Corpuscular Hemoglobin Concent 33 g/dL Red Cell Distribution Width 14.6 % Platelet Count 305 x10^3/uL Neutrophils (%) (Auto) 82 % Lymphocytes (%) (Auto) 8 % Monocytes (%) (Auto) 9 % Eosinophils (%) (Auto) 0 % Basophils (%) (Auto) 0 % Neutrophils # (Auto) 13.9 x10^3uL Lymphocytes # (Auto) 1.4 x10^3/uL Monocytes # (Auto) 1.6 x10^3/uL Eosinophils # (Auto) 0.0 x10^3/uL Basophils # (Auto) 0.0 x10^3/uL Segmented Neutrophils % 84 % Band Neutrophils % 1 % Lymphocytes % 12 % Monocytes % 3 % Platelet Estimate Adequate Sodium Level 137 mmol/L Potassium Level 5.0 mmol/L Chloride Level 101 mmol/L Carbon Dioxide Level 31 mmol/L Anion Gap 5 Blood Urea Nitrogen 24 mg/dL Creatinine 1.0 mg/dL Estimated GFR (Cockcroft-Gault) 57.4 BUN/Creatinine Ratio 24 Glucose Level 123 mg/dL Calcium Level 8.8 mg/dL Total Bilirubin 0.1 mg/dL Aspartate Amino Transf (AST/SGOT) 13 U/L Alanine Aminotransferase (ALT/SGPT) 27 U/L Alkaline Phosphatase 74 U/L Total Protein 6.7 g/dL Albumin 3.0 g/dL Albumin/Globulin Ratio 0.8 Current Medications Medications (Trade) Dose Ordered Sig/Naman Route PRN Reason Start Time Stop Time Status Last Admin Dose Admin Aspirin (Raudel Aspirin) 325 mg 1X ONCE PO 12/28/18 23:00 12/28/18 23:01 DC 12/28/18 23:29 Sodium Chloride 1,000 ml @ 1,000 mls/hr 1X ONCE IV 12/28/18 23:00 12/28/18 23:59 DC 12/28/18 23:29 Dexamethasone Sodium Phosphate (Decadron) 10 mg 1X ONCE IV 12/28/18 23:00 12/28/18 23:01 DC Lorazepam (Ativan) 1 mg 1X ONCE IV 12/28/18 23:45 12/28/18 23:46 DC 12/29/18 00:00 Dexamethasone Sodium Phosphate (Decadron) 10 mg 1X ONCE IV 12/29/18 00:00 12/29/18 00:01 DC 12/29/18 00:38 Ondansetron HCl (Zofran) 4 mg PRN Q8HRS PRN IV NAUSEA/VOMITING 12/29/18 00:30 12/30/18 00:29 DC 12/29/18 00:38 Hydromorphone HCl (Dilaudid) 0.5 mg Q4HRS PRN IV PAIN 12/29/18 00:15 12/29/18 00:23 DC Oxycodone/ Acetaminophen (Percocet 10/325) 1 tab PRN Q4HRS PRN PO PAIN 12/29/18 00:30 12/29/18 02:45 DC 12/29/18 00:38 Albuterol Sulfate (Ventolin Neb Soln) 2.5 mg PRN QID PRN NEB WHEEZING 12/29/18 01:00 12/29/18 11:35 DC 12/29/18 07:59 Oxycodone HCl (OxyCONTIN) 10 mg Q12HR PO 12/29/18 09:00 12/29/18 11:38 DC 12/29/18 09:05 Oxycodone HCl (Roxicodone) 10 mg PRN Q6HRS PRN PO PAIN 12/29/18 02:45 12/29/18 12:16 DC 12/29/18 09:07 Piperacillin Sod/ Tazobactam Sod (Zosyn Per Pharmacy) 1 each PRN DAILY PRN MC SEE COMMENTS 12/29/18 11:30 Cancel Albuterol Sulfate (Ventolin Neb Soln) 2.5 mg PRN Q4HRS PRN NEB WHEEZING 12/29/18 11:30 12/30/18 22:33 Alprazolam (Xanax) 1 mg TID PRN PO ANXIETY / AGITATION 12/29/18 11:30 01/01/19 14:09 Lisinopril (Prinivil) 40 mg DAILY PO 12/29/18 12:00 01/01/19 09:46 Vitamin D (Vitamin D3) 5,000 unit WEEKLY PO 12/30/18 09:00 12/30/18 08:19 Citalopram Hydrobromide (CeleXA) 20 mg DAILY PO 12/29/18 12:00 01/01/19 09:46 Fluticasone Propionate (Flonase) 2 spray DAILY NS 12/29/18 12:00 Ipratropium [place] (Atrovent) 0.5 mg RTQID NEB 12/29/18 12:00 01/01/19 13:06 Oxycodone HCl (Roxicodone) 10 mg PRN Q4HRS PRN PO SEVERE PAIN 12/29/18 11:45 01/01/19 11:55 Oxycodone HCl (OxyCONTIN) 60 mg Q12HR PO 12/29/18 21:00 01/01/19 09:49 Polyethylene Glycol (miraLAX PACKET) 17 gm DAILY PO 12/29/18 12:00 01/01/19 09:49 Promethazine HCl (Phenergan) 25 mg PRN Q6HRS PRN PO NAUSEA/VOMITING 12/29/18 11:45 Sennosides (Senna) 8.6 mg BID PO 12/29/18 12:00 01/01/19 09:49 Ceftriaxone Sodium (Rocephin) 1 gm Q24H IVP 12/29/18 12:00 01/01/19 11:40 Azithromycin (Zithromax) 250 mg DAILY PO 12/29/18 12:00 01/01/19 09:46 Enoxaparin Sodium (Lovenox 40mg Syringe) 40 mg Q24H SQ 12/29/18 16:00 12/31/18 15:10 Lactobacillus Rhamnosus (Culturelle) 1 cap BID PO 12/29/18 21:00 01/01/19 09:46 Amlodipine Besylate (Norvasc) 5 mg DAILY PO 12/30/18 09:00 01/01/19 09:48 Methylprednisolone Sodium Succinate (SOLU-Medrol 40MG VIAL) 40 mg Q8HRS IV 12/30/18 09:00 01/01/19 14:09 Budesonide (Pulmicort) 0.5 mg RTBID NEB 12/30/18 09:00 01/01/19 07:43 Zolpidem Tartrate (Ambien) 5 mg PRN QHS PRN PO INSOMNIA 12/30/18 20:00 12/31/18 20:19 Laboratory Tests Test 01/01/19 07:33 White Blood Count 16.9 x10^3/uL (4.0-11.0) Red Blood Count 4.79 x10^6/uL (3.50-5.40) Hemoglobin 14.6 g/dL (12.0-15.5) Hematocrit 43.8 % (36.0-47.0) Mean Corpuscular Volume 91 fL (79-100) Mean Corpuscular Hemoglobin 30 pg (25-35) Mean Corpuscular Hemoglobin Concent 33 g/dL (31-37) Red Cell Distribution Width 14.6 % (11.5-14.5) Platelet Count 305 x10^3/uL (140-400) Neutrophils (%) (Auto) 82 % (31-73) Lymphocytes (%) (Auto) 8 % (24-48) Monocytes (%) (Auto) 9 % (0-9) Eosinophils (%) (Auto) 0 % (0-3) Basophils (%) (Auto) 0 % (0-3) Neutrophils # (Auto) 13.9 x10^3uL (1.8-7.7) Lymphocytes # (Auto) 1.4 x10^3/uL (1.0-4.8) Monocytes # (Auto) 1.6 x10^3/uL (0.0-1.1) Eosinophils # (Auto) 0.0 x10^3/uL (0.0-0.7) Basophils # (Auto) 0.0 x10^3/uL (0.0-0.2) Segmented Neutrophils % 84 % (35-66) Band Neutrophils % 1 % (0-9) Lymphocytes % 12 % (24-48) Monocytes % 3 % (0-10) Platelet Estimate Adequate (ADEQUATE) Sodium Level 137 mmol/L (136-145) Potassium Level 5.0 mmol/L (3.5-5.1) Chloride Level 101 mmol/L (98-107) Carbon Dioxide Level 31 mmol/L (21-32) Anion Gap 5 (6-14) Blood Urea Nitrogen 24 mg/dL (7-20) Creatinine 1.0 mg/dL (0.6-1.0) Estimated GFR (Cockcroft-Gault) 57.4 BUN/Creatinine Ratio 24 (6-20) Glucose Level 123 mg/dL (70-99) Calcium Level 8.8 mg/dL (8.5-10.1) Total Bilirubin 0.1 mg/dL (0.2-1.0) Aspartate Amino Transf (AST/SGOT) 13 U/L (15-37) Alanine Aminotransferase (ALT/SGPT) 27 U/L (14-59) Alkaline Phosphatase 74 U/L (46-116) Total Protein 6.7 g/dL (6.4-8.2) Albumin 3.0 g/dL (3.4-5.0) Albumin/Globulin Ratio 0.8 (1.0-1.7) Laboratory Tests Test 01/01/19 07:33 White Blood Count 16.9 x10^3/uL (4.0-11.0) Red Blood Count 4.79 x10^6/uL (3.50-5.40) Hemoglobin 14.6 g/dL (12.0-15.5) Hematocrit 43.8 % (36.0-47.0) Mean Corpuscular Volume 91 fL (79-100) Mean Corpuscular Hemoglobin 30 pg (25-35) Mean Corpuscular Hemoglobin Concent 33 g/dL (31-37) Red Cell Distribution Width 14.6 % (11.5-14.5) Platelet Count 305 x10^3/uL (140-400) Neutrophils (%) (Auto) 82 % (31-73) Lymphocytes (%) (Auto) 8 % (24-48) Monocytes (%) (Auto) 9 % (0-9) Eosinophils (%) (Auto) 0 % (0-3) Basophils (%) (Auto) 0 % (0-3) Neutrophils # (Auto) 13.9 x10^3uL (1.8-7.7) Lymphocytes # (Auto) 1.4 x10^3/uL (1.0-4.8) Monocytes # (Auto) 1.6 x10^3/uL (0.0-1.1) Eosinophils # (Auto) 0.0 x10^3/uL (0.0-0.7) Basophils # (Auto) 0.0 x10^3/uL (0.0-0.2) Segmented Neutrophils % 84 % (35-66) Band Neutrophils % 1 % (0-9) Lymphocytes % 12 % (24-48) Monocytes % 3 % (0-10) Platelet Estimate Adequate (ADEQUATE) Sodium Level 137 mmol/L (136-145) Potassium Level 5.0 mmol/L (3.5-5.1) Chloride Level 101 mmol/L (98-107) Carbon Dioxide Level 31 mmol/L (21-32) Anion Gap 5 (6-14) Blood Urea Nitrogen 24 mg/dL (7-20) Creatinine 1.0 mg/dL (0.6-1.0) Estimated GFR (Cockcroft-Gault) 57.4 BUN/Creatinine Ratio 24 (6-20) Glucose Level 123 mg/dL (70-99) Calcium Level 8.8 mg/dL (8.5-10.1) Total Bilirubin 0.1 mg/dL (0.2-1.0) Aspartate Amino Transf (AST/SGOT) 13 U/L (15-37) Alanine Aminotransferase (ALT/SGPT) 27 U/L (14-59) Alkaline Phosphatase 74 U/L (46-116) Total Protein 6.7 g/dL (6.4-8.2) Albumin 3.0 g/dL (3.4-5.0) Albumin/Globulin Ratio 0.8 (1.0-1.7) Medications Active Scripts Medications Dose Route/Sig Max Daily Dose Days Date Category Oxycodone Hcl 5 Mg Capsule 10 Mg PO PRN Q4HRS PRN 12/29/18 Reported Promethazine Hcl 25 Mg Tablet 25 Mg PO PRN Q6HRS PRN 12/29/18 Reported Cyclobenzaprine Hcl 10 Mg Tablet 10 Mg PO TID 12/29/18 Reported Alprazolam 0.5 Mg Tablet 1 Mg PO TID PRN 12/29/18 Reported Senokot (Sennosides) 8.6 Mg Tablet 8.6 Mg PO BID 12/29/18 Reported Atrovent Hfa (Ipratropium [place]) 12.9 Gm Hfa.aer.ad 1 Puff IH QID 12/29/18 Reported Oxycontin (Oxycodone HCl) 60 Mg Tab.er.12h 60 Mg PO BID 12/29/18 Reported Escitalopram Oxalate 10 Mg Tablet 10 Mg PO DAILY 12/29/18 Reported Miralax (Polyethylene Glycol 3350) 17 Gm Powd.pack 1 Packet PO DAILY 01/28/18 Reported Albuterol Sulfate Neb Soln (Albuterol Sulfate) 2.5 Mg/3 Ml Vial.neb 1 Vial NEB PRN Q4HRS PRN 01/27/18 Reported Flonase Allergy Relief (Fluticasone Propionate) 9.9 Ml [place].susp 2 Sprays NS DAILY 01/27/18 Reported Lisinopril 40 Mg Tablet 1 Tab PO DAILY 01/27/18 Reported Vitamin D3 (Cholecalciferol (Vitamin D3)) 5,000 Unit Tablet 1 Tab PO WEEKLY 01/27/18 Reported Active Scripts Medications Dose Route/Sig Max Daily Dose Days Date Category Oxycodone Hcl 5 Mg Capsule 10 Mg PO PRN Q4HRS PRN 12/29/18 Reported Promethazine Hcl 25 Mg Tablet 25 Mg PO PRN Q6HRS PRN 12/29/18 Reported Cyclobenzaprine Hcl 10 Mg Tablet 10 Mg PO TID 12/29/18 Reported Alprazolam 0.5 Mg Tablet 1 Mg PO TID PRN 12/29/18 Reported Senokot (Sennosides) 8.6 Mg Tablet 8.6 Mg PO BID 12/29/18 Reported Atrovent Hfa (Ipratropium [place]) 12.9 Gm Hfa.aer.ad 1 Puff IH QID 12/29/18 Reported Oxycontin (Oxycodone HCl) 60 Mg Tab.er.12h 60 Mg PO BID 12/29/18 Reported Escitalopram Oxalate 10 Mg Tablet 10 Mg PO DAILY 12/29/18 Reported Miralax (Polyethylene Glycol 3350) 17 Gm Powd.pack 1 Packet PO DAILY 01/28/18 Reported Albuterol Sulfate Neb Soln (Albuterol Sulfate) 2.5 Mg/3 Ml Vial.neb 1 Vial NEB PRN Q4HRS PRN 01/27/18 Reported Flonase Allergy Relief (Fluticasone Propionate) 9.9 Ml [place].susp 2 Sprays NS DAILY 01/27/18 Reported Lisinopril 40 Mg Tablet 1 Tab PO DAILY 01/27/18 Reported Vitamin D3 (Cholecalciferol (Vitamin D3)) 5,000 Unit Tablet 1 Tab PO WEEKLY 01/27/18 Reported Comments Impression . COPD with acute exacerbation acute bronchitis. leukocytosis Chronic pain syndrome History of right renal cell cancer, status post right nephrectomy and being followed at and has been told that she has cancer on her left kidney as well. Plan . COPD with acute exacerbation:improving * Continue bronchodilators. * continue steroids at same dose, plan for taper starting tomorrow\ * supplemental oxygen if needed, currently on room air acute bronchitis:improving * continue current abx Rocephin and Zithromax. that were started on 12/29/17 * CT chest 12/29 leukocytosis:worsening * increase wbc to 16.8, likely 2/2 steroids * afebrile, and clinically improved * cont. to monitor Chronic pain syndrome:stable/ongoing * wishes to follow with Dr. Yates * cont. current regiment per PCP History of right renal cell cancer, status post right nephrectomy * follows at and has been told that she has cancer on her left kidney as well Pulmonary Nodule:stable * CT chest on 12/29/18: Tiny right pulmonary nodule which in retrospect was present on 01/31/2018 but is better demonstrated on today's thinner slices. * will follow outpatient, REPEAT CT IN 12 MONTHS THU REID MD Jan 01, 2019 14:51
[2019-01-01 14:56] VITALS: BP 145/67
[2019-01-01] MEDS: ENOXAPARIN 40 MG/0.4 ML SYRINGE. SQ SCH (16:20)
--- NOTE | 2019-01-01 18:26 | NUR ---
Patient claimed that she has allergy to adhesive tape, said that she gets rashes on the site where it is placed. She also expressed that she hopes to go home tomorrow with Home Health. No new complaints were noted throughout the shift.
[2019-01-01 19:00] VITALS: BP 165/83
[2019-01-01 23:55] VITALS: BP 161/74
[2019-01-02] MEDS: oxyCODONE IR 5 MG TABLET PO PRN ×2 (01:08→06:22)
[2019-01-02] MEDS: methylPREDNISolone SOD SUCC PF 40 MG/ML VIAL. IV SCH (06:22)
[2019-01-02 07:20] VITALS: BP 171/75
[2019-01-02] MEDS: IPRATROPIUM BROMIDE 0.5 MG/2.5 ML NEBU. NEB SCH (07:30)
[2019-01-02] MEDS: BUDESONIDE 0.5 MG/2 ML NEBU. NEB SCH (07:30)
[2019-01-02] MEDS: POLYETHYLENE GLYCOL 3350 17 GM PACKET. PO SCH (08:02)
[2019-01-02] MEDS: LISINOPRIL 20 MG TABLET PO SCH (08:02)
[2019-01-02] MEDS: SENNOSIDES 8.6 MG TABLET PO SCH (08:02)
[2019-01-02] MEDS: AZITHROMYCIN 250 MG TABLET. PO SCH (08:02)
[2019-01-02] MEDS: LACTOBACILLUS RHAMNOSUS GG 1 CAPSULE. PO SCH (08:02)
[2019-01-02 08:03] VITALS: BP 171/75
[2019-01-02] MEDS: amLODIPine BESYLATE 5 MG TABLET PO SCH (08:03)
[2019-01-02] MEDS: CITALOPRAM 20 MG TABLET. PO SCH (08:03)
[2019-01-02] MEDS: oxyCODONE ER 15 MG TAB.ER.12H PO SCH (08:04)
[2019-01-02] MEDS: FLUTICASONE 50MCG/NASAL SPRAY 16GM BOTTLE. NS SCH (08:08)
[2019-01-02] MEDS: ALPRAZolam 1 MG TABLET PO PRN (08:23)
--- NOTE | 2019-01-02 08:25 | PDOC ---
PULMONARY PROGRESS NOTES Subjective Pt. is resting comfortably in bed on room air, she reports non-productive cough. She denies any SOB,or abd pain, headache. She states she wants to discharge home today. Vitals Vital Signs Date Time Temp Pulse Resp B/P (MAP) Pulse Ox O2 Delivery O2 Flow Rate FiO2 01/02/19 08:04 18 95 Room Air 01/02/19 08:03 62 171/75 01/02/19 07:20 98.5 98.5 Comments 12 point ROS was reviewed with pt. see HPI ROS: No Nausea, No Chest Pain, No Increase Cough General: Alert, Oriented X4 HEENT: Other ([place]err[place]) Lungs: Wheezing Cardiovascular: S1, S2 Abdomen: Soft, Non-tender Neuro Exam: Alert, Oriented, Normal Speech Extremities: No Edema Skin: Warm, Dry Labs Current Medications Medications (Trade) Dose Ordered Sig/Naman Route PRN Reason Start Time Stop Time Status Last Admin Dose Admin Aspirin (Raudel Aspirin) 325 mg 1X ONCE PO 12/28/18 23:00 12/28/18 23:01 DC 12/28/18 23:29 Sodium Chloride 1,000 ml @ 1,000 mls/hr 1X ONCE IV 12/28/18 23:00 12/28/18 23:59 DC 12/28/18 23:29 Dexamethasone Sodium Phosphate (Decadron) 10 mg 1X ONCE IV 12/28/18 23:00 12/28/18 23:01 DC Lorazepam (Ativan) 1 mg 1X ONCE IV 12/28/18 23:45 12/28/18 23:46 DC 12/29/18 00:00 Dexamethasone Sodium Phosphate (Decadron) 10 mg 1X ONCE IV 12/29/18 00:00 12/29/18 00:01 DC 12/29/18 00:38 Ondansetron HCl (Zofran) 4 mg PRN Q8HRS PRN IV NAUSEA/VOMITING 12/29/18 00:30 12/30/18 00:29 DC 12/29/18 00:38 Hydromorphone HCl (Dilaudid) 0.5 mg Q4HRS PRN IV PAIN 12/29/18 00:15 12/29/18 00:23 DC Oxycodone/ Acetaminophen (Percocet 10/325) 1 tab PRN Q4HRS PRN PO PAIN 12/29/18 00:30 12/29/18 02:45 DC 12/29/18 00:38 Albuterol Sulfate (Ventolin Neb Soln) 2.5 mg PRN QID PRN NEB WHEEZING 12/29/18 01:00 12/29/18 11:35 DC 12/29/18 07:59 Oxycodone HCl (OxyCONTIN) 10 mg Q12HR PO 12/29/18 09:00 12/29/18 11:38 DC 12/29/18 09:05 Oxycodone HCl (Roxicodone) 10 mg PRN Q6HRS PRN PO PAIN 12/29/18 02:45 12/29/18 12:16 DC 12/29/18 09:07 Piperacillin Sod/ Tazobactam Sod (Zosyn Per Pharmacy) 1 each PRN DAILY PRN MC SEE COMMENTS 12/29/18 11:30 Cancel Albuterol Sulfate (Ventolin Neb Soln) 2.5 mg PRN Q4HRS PRN NEB WHEEZING 12/29/18 11:30 12/30/18 22:33 Alprazolam (Xanax) 1 mg TID PRN PO ANXIETY / AGITATION 12/29/18 11:30 01/01/19 22:28 Lisinopril (Prinivil) 40 mg DAILY PO 12/29/18 12:00 01/02/19 08:02 Vitamin D (Vitamin D3) 5,000 unit WEEKLY PO 12/30/18 09:00 12/30/18 08:19 Citalopram Hydrobromide (CeleXA) 20 mg DAILY PO 12/29/18 12:00 01/02/19 08:03 Fluticasone Propionate (Flonase) 2 spray DAILY NS 12/29/18 12:00 Ipratropium [place] (Atrovent) 0.5 mg RTQID NEB 12/29/18 12:00 01/02/19 07:30 Oxycodone HCl (Roxicodone) 10 mg PRN Q4HRS PRN PO SEVERE PAIN 12/29/18 11:45 01/02/19 06:22 Oxycodone HCl (OxyCONTIN) 60 mg Q12HR PO 12/29/18 21:00 01/02/19 08:04 Polyethylene Glycol (miraLAX PACKET) 17 gm DAILY PO 12/29/18 12:00 01/02/19 08:02 Promethazine HCl (Phenergan) 25 mg PRN Q6HRS PRN PO NAUSEA/VOMITING 12/29/18 11:45 Sennosides (Senna) 8.6 mg BID PO 12/29/18 12:00 01/02/19 08:02 Ceftriaxone Sodium (Rocephin) 1 gm Q24H IVP 12/29/18 12:00 01/01/19 11:40 Azithromycin (Zithromax) 250 mg DAILY PO 12/29/18 12:00 01/02/19 08:02 Enoxaparin Sodium (Lovenox 40mg Syringe) 40 mg Q24H SQ 12/29/18 16:00 01/01/19 16:20 Lactobacillus Rhamnosus (Culturelle) 1 cap BID PO 12/29/18 21:00 01/02/19 08:02 Amlodipine Besylate (Norvasc) 5 mg DAILY PO 12/30/18 09:00 01/02/19 08:03 Methylprednisolone Sodium Succinate (SOLU-Medrol 40MG VIAL) 40 mg Q8HRS IV 12/30/18 09:00 01/02/19 06:22 Budesonide (Pulmicort) 0.5 mg RTBID NEB 12/30/18 09:00 01/02/19 07:30 Zolpidem Tartrate (Ambien) 5 mg PRN QHS PRN PO INSOMNIA 12/30/18 20:00 12/31/18 20:19 Laboratory Tests Test 01/01/19 07:33 White Blood Count 16.9 x10^3/uL (4.0-11.0) Red Blood Count 4.79 x10^6/uL (3.50-5.40) Hemoglobin 14.6 g/dL (12.0-15.5) Hematocrit 43.8 % (36.0-47.0) Mean Corpuscular Volume 91 fL (79-100) Mean Corpuscular Hemoglobin 30 pg (25-35) Mean Corpuscular Hemoglobin Concent 33 g/dL (31-37) Red Cell Distribution Width 14.6 % (11.5-14.5) Platelet Count 305 x10^3/uL (140-400) Neutrophils (%) (Auto) 82 % (31-73) Lymphocytes (%) (Auto) 8 % (24-48) Monocytes (%) (Auto) 9 % (0-9) Eosinophils (%) (Auto) 0 % (0-3) Basophils (%) (Auto) 0 % (0-3) Neutrophils # (Auto) 13.9 x10^3uL (1.8-7.7) Lymphocytes # (Auto) 1.4 x10^3/uL (1.0-4.8) Monocytes # (Auto) 1.6 x10^3/uL (0.0-1.1) Eosinophils # (Auto) 0.0 x10^3/uL (0.0-0.7) Basophils # (Auto) 0.0 x10^3/uL (0.0-0.2) Segmented Neutrophils % 84 % (35-66) Band Neutrophils % 1 % (0-9) Lymphocytes % 12 % (24-48) Monocytes % 3 % (0-10) Platelet Estimate Adequate (ADEQUATE) Sodium Level 137 mmol/L (136-145) Potassium Level 5.0 mmol/L (3.5-5.1) Chloride Level 101 mmol/L (98-107) Carbon Dioxide Level 31 mmol/L (21-32) Anion Gap 5 (6-14) Blood Urea Nitrogen 24 mg/dL (7-20) Creatinine 1.0 mg/dL (0.6-1.0) Estimated GFR (Cockcroft-Gault) 57.4 BUN/Creatinine Ratio 24 (6-20) Glucose Level 123 mg/dL (70-99) Calcium Level 8.8 mg/dL (8.5-10.1) Total Bilirubin 0.1 mg/dL (0.2-1.0) Aspartate Amino Transf (AST/SGOT) 13 U/L (15-37) Alanine Aminotransferase (ALT/SGPT) 27 U/L (14-59) Alkaline Phosphatase 74 U/L (46-116) Total Protein 6.7 g/dL (6.4-8.2) Albumin 3.0 g/dL (3.4-5.0) Albumin/Globulin Ratio 0.8 (1.0-1.7) Medications Active Scripts Medications Dose Route/Sig Max Daily Dose Days Date Category Oxycodone Hcl 5 Mg Capsule 10 Mg PO PRN Q4HRS PRN 12/29/18 Reported Promethazine Hcl 25 Mg Tablet 25 Mg PO PRN Q6HRS PRN 12/29/18 Reported Cyclobenzaprine Hcl 10 Mg Tablet 10 Mg PO TID 12/29/18 Reported Alprazolam 0.5 Mg Tablet 1 Mg PO TID PRN 12/29/18 Reported Senokot (Sennosides) 8.6 Mg Tablet 8.6 Mg PO BID 12/29/18 Reported Atrovent Hfa (Ipratropium [place]) 12.9 Gm Hfa.aer.ad 1 Puff IH QID 12/29/18 Reported Oxycontin (Oxycodone HCl) 60 Mg Tab.er.12h 60 Mg PO BID 12/29/18 Reported Escitalopram Oxalate 10 Mg Tablet 10 Mg PO DAILY 12/29/18 Reported Miralax (Polyethylene Glycol 3350) 17 Gm Powd.pack 1 Packet PO DAILY 01/28/18 Reported Albuterol Sulfate Neb Soln (Albuterol Sulfate) 2.5 Mg/3 Ml Vial.neb 1 Vial NEB PRN Q4HRS PRN 01/27/18 Reported Flonase Allergy Relief (Fluticasone Propionate) 9.9 Ml [place].susp 2 Sprays NS DAILY 01/27/18 Reported Lisinopril 40 Mg Tablet 1 Tab PO DAILY 01/27/18 Reported Vitamin D3 (Cholecalciferol (Vitamin D3)) 5,000 Unit Tablet 1 Tab PO WEEKLY 01/27/18 Reported Active Scripts Medications Dose Route/Sig Max Daily Dose Days Date Category Oxycodone Hcl 5 Mg Capsule 10 Mg PO PRN Q4HRS PRN 12/29/18 Reported Promethazine Hcl 25 Mg Tablet 25 Mg PO PRN Q6HRS PRN 12/29/18 Reported Cyclobenzaprine Hcl 10 Mg Tablet 10 Mg PO TID 12/29/18 Reported Alprazolam 0.5 Mg Tablet 1 Mg PO TID PRN 12/29/18 Reported Senokot (Sennosides) 8.6 Mg Tablet 8.6 Mg PO BID 12/29/18 Reported Atrovent Hfa (Ipratropium [place]) 12.9 Gm Hfa.aer.ad 1 Puff IH QID 12/29/18 Reported Oxycontin (Oxycodone HCl) 60 Mg Tab.er.12h 60 Mg PO BID 12/29/18 Reported Escitalopram Oxalate 10 Mg Tablet 10 Mg PO DAILY 12/29/18 Reported Miralax (Polyethylene Glycol 3350) 17 Gm Powd.pack 1 Packet PO DAILY 01/28/18 Reported Albuterol Sulfate Neb Soln (Albuterol Sulfate) 2.5 Mg/3 Ml Vial.neb 1 Vial NEB PRN Q4HRS PRN 01/27/18 Reported Flonase Allergy Relief (Fluticasone Propionate) 9.9 Ml [place].susp 2 Sprays NS DAILY 01/27/18 Reported Lisinopril 40 Mg Tablet 1 Tab PO DAILY 01/27/18 Reported Vitamin D3 (Cholecalciferol (Vitamin D3)) 5,000 Unit Tablet 1 Tab PO WEEKLY 01/27/18 Reported Active Scripts Medications Dose Route/Sig Max Daily Dose Days Date Category Oxycodone Hcl 5 Mg Capsule 10 Mg PO PRN Q4HRS PRN 12/29/18 Reported Promethazine Hcl 25 Mg Tablet 25 Mg PO PRN Q6HRS PRN 12/29/18 Reported Cyclobenzaprine Hcl 10 Mg Tablet 10 Mg PO TID 12/29/18 Reported Alprazolam 0.5 Mg Tablet 1 Mg PO TID PRN 12/29/18 Reported Senokot (Sennosides) 8.6 Mg Tablet 8.6 Mg PO BID 12/29/18 Reported Atrovent Hfa (Ipratropium [place]) 12.9 Gm Hfa.aer.ad 1 Puff IH QID 12/29/18 Reported Oxycontin (Oxycodone HCl) 60 Mg Tab.er.12h 60 Mg PO BID 12/29/18 Reported Escitalopram Oxalate 10 Mg Tablet 10 Mg PO DAILY 12/29/18 Reported Miralax (Polyethylene Glycol 3350) 17 Gm Powd.pack 1 Packet PO DAILY 01/28/18 Reported Albuterol Sulfate Neb Soln (Albuterol Sulfate) 2.5 Mg/3 Ml Vial.neb 1 Vial NEB PRN Q4HRS PRN 01/27/18 Reported Flonase Allergy Relief (Fluticasone Propionate) 9.9 Ml [place].susp 2 Sprays NS DAILY 01/27/18 Reported Lisinopril 40 Mg Tablet 1 Tab PO DAILY 01/27/18 Reported Vitamin D3 (Cholecalciferol (Vitamin D3)) 5,000 Unit Tablet 1 Tab PO WEEKLY 01/27/18 Reported Comments Impression . COPD with acute exacerbation acute bronchitis. leukocytosis Chronic pain syndrome History of right renal cell cancer, status post right nephrectomy and being followed at and has been told that she has cancer on her left kidney as well. Plan . COPD with acute exacerbation:improving * Continue bronchodilators. * continue steroids with taper * supplemental oxygen if needed, currently on room air acute bronchitis:improving * D/C ABX completed full course, NGTD on blood cultures * CT chest 12/29 leukocytosis: * likely 2/2 steroids * afebrile, and clinically improved * cont. to monitor Chronic pain syndrome:stable/ongoing * wishes to follow with Dr. Yates * cont. current regiment per PCP History of right renal cell cancer, status post right nephrectomy * follows at and has been told that she has cancer on her left kidney as well Pulmonary Nodule:stable * CT chest on 12/29/18: Tiny right pulmonary nodule which in retrospect was present on 01/31/2018 but is better demonstrated on today's thinner slices. * will follow outpatient, REPEAT CT IN 12 MONTHS THU REID MD Jan 02, 2019 08:25
--- NOTE | 2019-01-02 08:44 | PDOC ---
SUBJECTIVE Subjective Pt doing well, no complaints this am. Has been told that she is going home. RN has not seen records from Dr. Berrios and [facility] yet, although they were ordered. OBJECTIVE Objective Physical Exam: General appearance: Alert and Oriented Head: Normocephalic, without obvious abnormality Eyes: conjunctivae/corneas clear. PERRL, EOM's intact. Fundi benign Lungs:Regular respirations, non labored breathing Psych: Cooperative and appropriate. Vital Signs Vital Signs Date Time Temp Pulse Resp B/P (MAP) Pulse Ox O2 Delivery O2 Flow Rate FiO2 01/02/19 08:04 18 95 Room Air 01/02/19 08:03 62 171/75 01/02/19 08:02 62 171/75 01/02/19 07:22 18 95 Room Air 01/02/19 07:20 98.5 62 19 171/75 (107) 95 Room Air 98.5 01/02/19 06:22 Room Air 01/02/19 01:09 Room Air 01/02/19 01:08 Room Air 01/01/19 23:55 98.5 66 18 161/74 (103) 91 Room Air 98.5 01/01/19 20:44 Room Air 01/01/19 20:44 Room Air 01/01/19 19:34 Room Air 01/01/19 19:00 98.3 57 32 165/83 (110) 93 Room Air 98.3 01/01/19 16:19 17 92 Room Air 01/01/19 16:14 Room Air 01/01/19 14:56 98.2 72 19 145/67 (93) 92 Room Air 98.2 01/01/19 13:50 18 93 01/01/19 13:07 Room Air 01/01/19 11:55 18 93 Room Air 01/01/19 10:53 98.3 68 18 146/79 (101) 93 Room Air 98.3 01/01/19 09:49 18 93 Room Air 01/01/19 09:48 68 158/76 01/01/19 09:46 68 158/76 I & O Intake and Output 01/02/19 06:59 Intake Total 2730 ml Balance 2730 ml Intake Oral 2730 ml # Voids 7 # Bowel Movements 1 PHYSICAL EXAM Physical Exam Physical Exam: General appearance: Alert and Oriented Head: Normocephalic, without obvious abnormality Eyes: conjunctivae/corneas clear. PERRL, EOM's intact. Fundi benign Lungs:Regular respirations, non labored breathing Psych: Cooperative and appropriate. ASSESSMENT/PLAN Assessment/Plan Will get records from [facility] and Dr. Berrios, orders entered for nursing to obtain A follow up appointment has been arranged for patient with Dr. Patton of [facility] on 01/24/19 at 120 pm. Appointment card and new patient paperwork given to patient. Dr. Banda did caution her that [facility] physicians would be cautious when it comes to cancer management, as she only has one kidney. She can discuss this in further detail at her follow up with Dr. Patton on the . Records have been ordered but are not available for review yet. Did discuss with attending RN to have them faxed to the office whenever they arrive. RN given [facility]'s fax number. Will sign off at this time, but please call with questions or changes in patient condition. LATRICE PATEL APRN Jan 02, 2019 08:44
[2019-01-02] MEDS ORDERED: CYCL10TA2 PO (08:51)
[2019-01-02] MEDS ORDERED: PRED-220 PO (08:51)
[2019-01-02] MEDS ORDERED: PROM25TA10 PO (08:51)
[2019-01-02] MEDS ORDERED: AMLO5TAB10 PO (08:51)
[2019-01-02] MEDS ORDERED: OXYC5CAP PO (08:51)
[2019-01-02] MEDS ORDERED: AZIT250T6 PO (08:53)
[2019-01-02] MEDS ORDERED: predniSONE 10 MG TABLET PO SCH (09:00)
--- NOTE | 2019-01-02 09:23 | NUR ---
BALTA following pt for dc planning. Pt lives at home and gets 48hour home care per week. Pt has declined to participate with PT/OT so far. No other dc needs noted at this time. POORNIMA Physician.
--- NOTE | 2019-01-02 09:29 | PDOC ---
PROGRESS NOTES Subjective Subjective She felt increased back pain after my examination last evening,where I have checked for any tenderness over thoracic,cervical and lumbar spine area and rolling from side to side and her muscle strength and reflex and sensory examination of nher extremities. She even refused to get OOB. Objective Objective Vital Signs Date Time Temp Pulse Resp B/P (MAP) Pulse Ox O2 Delivery O2 Flow Rate FiO2 01/02/19 08:04 18 95 Room Air 01/02/19 08:03 62 171/75 01/02/19 07:20 98.5 98.5 Intake and Output 01/02/19 06:59 Intake Total 2730 ml Balance 2730 ml Intake Oral 2730 ml # Voids 7 # Bowel Movements 1 Physical Exam Physical Exam She is supine in bed and does not seem to be in any acute distress.She does not feel like getting up.She has been refusing to get up with therapy and she is not interested in any injections to her low back to help ease her pain. She recently had gone through [facility] care unit stay. Assessment Assessment Problems Medical Problems: (1) Chronic pain Status: Acute (2) COPD exacerbation Status: Acute Plan Plan of Care She can benefit from home health follow up by physical therapy and occupational therapy if she had motivation to work with them to get better. Comment Review of Relevant I have reviewed the following items rodolfo (where applicable) has been applied. Labs Laboratory Tests Test 01/01/19 07:33 White Blood Count 16.9 x10^3/uL (4.0-11.0) Red Blood Count 4.79 x10^6/uL (3.50-5.40) Hemoglobin 14.6 g/dL (12.0-15.5) Hematocrit 43.8 % (36.0-47.0) Mean Corpuscular Volume 91 fL (79-100) Mean Corpuscular Hemoglobin 30 pg (25-35) Mean Corpuscular Hemoglobin Concent 33 g/dL (31-37) Red Cell Distribution Width 14.6 % (11.5-14.5) Platelet Count 305 x10^3/uL (140-400) Neutrophils (%) (Auto) 82 % (31-73) Lymphocytes (%) (Auto) 8 % (24-48) Monocytes (%) (Auto) 9 % (0-9) Eosinophils (%) (Auto) 0 % (0-3) Basophils (%) (Auto) 0 % (0-3) Neutrophils # (Auto) 13.9 x10^3uL (1.8-7.7) Lymphocytes # (Auto) 1.4 x10^3/uL (1.0-4.8) Monocytes # (Auto) 1.6 x10^3/uL (0.0-1.1) Eosinophils # (Auto) 0.0 x10^3/uL (0.0-0.7) Basophils # (Auto) 0.0 x10^3/uL (0.0-0.2) Segmented Neutrophils % 84 % (35-66) Band Neutrophils % 1 % (0-9) Lymphocytes % 12 % (24-48) Monocytes % 3 % (0-10) Platelet Estimate Adequate (ADEQUATE) Sodium Level 137 mmol/L (136-145) Potassium Level 5.0 mmol/L (3.5-5.1) Chloride Level 101 mmol/L (98-107) Carbon Dioxide Level 31 mmol/L (21-32) Anion Gap 5 (6-14) Blood Urea Nitrogen 24 mg/dL (7-20) Creatinine 1.0 mg/dL (0.6-1.0) Estimated GFR (Cockcroft-Gault) 57.4 BUN/Creatinine Ratio 24 (6-20) Glucose Level 123 mg/dL (70-99) Calcium Level 8.8 mg/dL (8.5-10.1) Total Bilirubin 0.1 mg/dL (0.2-1.0) Aspartate Amino Transf (AST/SGOT) 13 U/L (15-37) Alanine Aminotransferase (ALT/SGPT) 27 U/L (14-59) Alkaline Phosphatase 74 U/L (46-116) Total Protein 6.7 g/dL (6.4-8.2) Albumin 3.0 g/dL (3.4-5.0) Albumin/Globulin Ratio 0.8 (1.0-1.7) Microbiology 12/29/18 Blood Culture - Preliminary, Resulted NO GROWTH AFTER 4 DAYS Medications Current Medications Aspirin (Raudel Aspirin) 325 mg 1X ONCE PO Last administered on 12/28/18at 23:29; Start 12/28/18 at 23:00; Stop 12/28/18 at 23:01; Status DC Sodium Chloride 1,000 ml @ 1,000 mls/hr 1X ONCE IV Last administered on 12/28/18 23:29; Start 12/28/18 at 23:00; Stop 12/28/18 at 23:59; Status DC Dexamethasone Sodium Phosphate (Decadron) 10 mg 1X ONCE IV ; Start 12/28/18 at 23:00; Stop 12/28/18 at 23:01; Status DC Lorazepam (Ativan) 1 mg 1X ONCE IV Last administered on 12/29/18at 00:00; Start 12/28/18 at 23:45; Stop 12/28/18 at 23:46; Status DC Dexamethasone Sodium Phosphate (Decadron) 10 mg 1X ONCE IV Last administered on 12/29/18 00:38; Start 12/29/18 at 00:00; Stop 12/29/18 at 00:01; Status DC Ondansetron HCl (Zofran) 4 mg PRN Q8HRS PRN IV NAUSEA/VOMITING Last administered on 12/29/18 00:38; Start 12/29/18 at 00:30; Stop 12/30/18 at 00:29; Status DC Hydromorphone HCl (Dilaudid) 0.5 mg Q4HRS PRN IV PAIN; Start 12/29/18 at 00:15; Stop 12/29/18 at 00:23; Status DC Oxycodone/ Acetaminophen (Percocet 10/325) 1 tab PRN Q4HRS PRN PO PAIN Last administered on 12/29/18 00:38; Start 12/29/18 at 00:30; Stop 12/29/18 at 02:45; Status DC Albuterol Sulfate (Ventolin Neb Soln) 2.5 mg PRN QID PRN NEB WHEEZING Last administered on 12/29/18 07:59; Start 12/29/18 at 01:00; Stop 12/29/18 at 11:35; Status DC Oxycodone HCl (OxyCONTIN) 10 mg Q12HR PO Last administered on 12/29/18 09:05; Start 12/29/18 at 09:00; Stop 12/29/18 at 11:38; Status DC Oxycodone HCl (Roxicodone) 10 mg PRN Q6HRS PRN PO PAIN Last administered on 12/29/18 09:07; Start 12/29/18 at 02:45; Stop 12/29/18 at 12:16; Status DC Piperacillin Sod/ Tazobactam Sod (Zosyn Per Pharmacy) 1 each PRN DAILY PRN MC SEE COMMENTS; Start 12/29/18 at 11:30; Status Cancel Albuterol Sulfate (Ventolin Neb Soln) 2.5 mg PRN Q4HRS PRN NEB WHEEZING Last administered on 12/30/18 22:33; Start 12/29/18 at 11:30 Alprazolam (Xanax) 1 mg TID PRN PO ANXIETY / AGITATION Last administered on 12/12 08:23; Start 12/29/18 at 11:30 Lisinopril (Prinivil) 40 mg DAILY PO Last administered on 01/02/19 08:02; Start 12/29/18 at 12:00 Vitamin D (Vitamin D3) 5,000 unit WEEKLY PO Last administered on 12/30/18 08:19; Start 12/30/18 at 09:00 Citalopram Hydrobromide (CeleXA) 20 mg DAILY PO Last administered on 01/02/19 08:03; Start 12/29/18 at 12:00 Fluticasone Propionate (Flonase) 2 spray DAILY NS ; Start 12/29/18 at 12:00 Ipratropium [place] (Atrovent) 0.5 mg RTQID NEB Last administered on 01/02/19 07:30; Start 12/29/18 at 12:00 Oxycodone HCl (Roxicodone) 10 mg PRN Q4HRS PRN PO SEVERE PAIN Last administered on 01/02/19 06:22; Start 12/29/18 at 11:45 Oxycodone HCl (OxyCONTIN) 60 mg Q12HR PO Last administered on 01/02/19 08:04; Start 12/29/18 at 21:00 Polyethylene Glycol (miraLAX PACKET) 17 gm DAILY PO Last administered on 01/02/19 08:02; Start 12/29/18 at 12:00 Promethazine HCl (Phenergan) 25 mg PRN Q6HRS PRN PO NAUSEA/VOMITING; Start 12/29/18 at 11:45 Sennosides (Senna) 8.6 mg BID PO Last administered on 01/02/19 08:02; Start 12/29/18 at 12:00 Ceftriaxone Sodium (Rocephin) 1 gm Q24H IVP Last administered on 01/01/19 11:40; Start 12/29/18 at 12:00; Stop 01/02/19 at 08:26; Status DC Azithromycin (Zithromax) 250 mg DAILY PO Last administered on 01/02/19 08:02; Start 12/29/18 at 12:00; Stop 01/02/19 at 08:26; Status DC Enoxaparin Sodium (Lovenox 40mg Syringe) 40 mg Q24H SQ Last administered on 01/01/19 16:20; Start 12/29/18 at 16:00 Lactobacillus Rhamnosus (Culturelle) 1 cap BID PO Last administered on 01/02/19 08:02; Start 12/29/18 at 21:00 Amlodipine Besylate (Norvasc) 5 mg DAILY PO Last administered on 01/02/19 08:03; Start 12/30/18 at 09:00 Methylprednisolone Sodium Succinate (SOLU-Medrol 40MG VIAL) 40 mg Q8HRS IV Last administered on 01/02/19 06:22; Start 12/30/18 at 09:00 Budesonide (Pulmicort) 0.5 mg RTBID NEB Last administered on 01/02/19 07:30; Start 12/30/18 at 09:00 Zolpidem Tartrate (Ambien) 5 mg PRN QHS PRN PO INSOMNIA Last administered on 12/31/18 20:19; Start 12/30/18 at 20:00 Prednisone (Prednisone) 40 mg Taper DAILY PO ; Start 01/02/19 at 09:00; Stop 01/10/19 at 08:59 Active Scripts Active Azithromycin Tablet (Azithromycin) 250 Mg Tablet 1 Pkg PO UD Amlodipine Besylate 5 Mg Tablet 5 Mg PO DAILY Prednisone (Prednisone) 10 Mg Tablet 10 Mg PO UD Take 3 tablets by mouth twice a day for 3 days, then take 2 tablets by mouth twice a day for 3 days, then take 1 tablet by mouth twice a day for 3 days, then take 1 tablet by mouth daily x 3 days, then stop. Oxycodone Hcl 5 Mg Capsule 10 Mg PO PRN Q4HRS PRN Promethazine Hcl 25 Mg Tablet 25 Mg PO PRN Q6HRS PRN Cyclobenzaprine Hcl 10 Mg Tablet 10 Mg PO TID PRN Reported Alprazolam 0.5 Mg Tablet 1 Mg PO TID PRN Senokot (Sennosides) 8.6 Mg Tablet 8.6 Mg PO BID Atrovent Hfa (Ipratropium [place]) 12.9 Gm Hfa.aer.ad 1 Puff IH QID Oxycontin (Oxycodone HCl) 60 Mg Tab.er.12h 60 Mg PO BID Escitalopram Oxalate 10 Mg Tablet 10 Mg PO DAILY Miralax (Polyethylene Glycol 3350) 17 Gm Powd.pack 1 Packet PO DAILY Albuterol Sulfate Neb Soln (Albuterol Sulfate) 2.5 Mg/3 Ml Vial.neb 1 Vial NEB PRN Q4HRS PRN Flonase Allergy Relief (Fluticasone Propionate) 9.9 Ml [place].susp 2 Sprays NS DAILY Lisinopril 40 Mg Tablet 1 Tab PO DAILY Vitamin D3 (Cholecalciferol (Vitamin D3)) 5,000 Unit Tablet 1 Tab PO WEEKLY Vitals/I & O Vital Sign - Last 24 Hours 01/01/19 01/01/19 01/01/19 01/01/19 09:46 09:48 09:49 10:53 Temp 98.3 98.3 Pulse 68 68 68 Resp 18 18 B/P (MAP) 158/76 158/76 146/79 (101) Pulse Ox 93 93 O2 Delivery Room Air Room Air 01/01/19 01/01/19 01/01/19 01/01/19 11:55 13:07 13:50 14:56 Temp 98.2 98.2 Pulse 72 Resp 18 18 19 B/P (MAP) 145/67 (93) Pulse Ox 93 93 92 O2 Delivery Room Air Room Air Room Air 01/01/19 01/01/19 01/01/19 01/01/19 16:14 16:19 19:00 19:34 Temp 98.3 98.3 Pulse 57 Resp 17 32 B/P (MAP) 165/83 (110) Pulse Ox 92 93 O2 Delivery Room Air Room Air Room Air Room Air 01/01/19 01/01/19 01/01/19 01/02/19 20:44 20:44 23:55 01:08 Temp 98.5 98.5 Pulse 66 Resp 18 B/P (MAP) 161/74 (103) Pulse Ox 91 O2 Delivery Room Air Room Air Room Air Room Air 01/02/19 01/02/19 01/02/19 01/02/19 01:09 06:22 07:20 07:22 Temp 98.5 98.5 Pulse 62 Resp 19 18 B/P (MAP) 171/75 (107) Pulse Ox 95 95 O2 Delivery Room Air Room Air Room Air Room Air 01/02/19 01/02/19 01/02/19 08:02 08:03 08:04 Pulse 62 62 Resp 18 B/P (MAP) 171/75 171/75 Pulse Ox 95 O2 Delivery Room Air Intake and Output 01/01/19 01/01/19 01/02/19 14:59 22:59 06:59 Intake Total 560 ml 1720 ml 450 ml Balance 560 ml 1720 ml 450 ml LEIGH ANN KAPLAN MD Jan 02, 2019 09:29
--- NOTE | 2019-01-02 10:17 | NUR ---
Discharge Note: STEVEN BHATTI Discharge instructions and discharge home medications reviewed with Patient and a copy given. All questions have been answered and understanding verbalized. The following instructions and handouts were given: Discharge Instructions, Education regarding COPD, Chronic Pain Management, and prescriptions. Discontinued lines and drains: Right Peripheral IV removed, catheter intact. Patient discharged to Home with Self-Care via Private Vehicle
--- NOTE | 2019-01-02 12:40 | CONS ---
DATE OF CONSULTATION: 01/01/2019 ATTENDING PHYSICIAN: Dr. Mccoy. The patient was seen at the request of Dr. Kuo for rehab evaluation. HISTORY OF PRESENT ILLNESS: This is a 58-year-old female known to me in the past. The patient with chronic lower back pain, also with a recent history of carcinoma of the kidney, had a herpes zoster skin lesions in the past, chronic obstructive pulmonary disease, fibromyalgia, hypercholesterolemia, hypertension, pancreatitis, status post cholecystectomy, back surgeries, right nephrectomy. KNOWN ALLERGIC TO ADHESIVE TAPE, CODEINE, FENTANYL, MORPHINE. Also diagnosis of peripheral neuropathy. The patient lives in a trailer home, had steps to manage. She had 24-hour assistance at home. The patient is hesitant to get up and walk today. Since admission on 12/29, she had x-rays of hip and pelvis, which failed to reveal any bony lesion. The patient had CT scan of the chest, which revealed tiny right pulmonary nodule, which in retrospect was present on 01/31/2018, but was better demonstrated on today's thin slices. Depending on the patient's risk factors, CT followup is suggested to establish stability, coronary calcifications. No esophageal mass was identified. Chest x-ray done on 12/29/2018 failed to reveal any acute abnormality. The patient was seen by Physical Therapy. She is not willing to participate in therapy evaluation at this time. PHYSICAL EXAMINATION: Today revealed a middle-aged female. She is alert, in no acute distress. She moves all 4 extremities voluntarily. She is protecting her lower extremity to some extent. She had 5/5 grade muscle strength in her upper and lower extremities. Deep tendon reflexes are 2+ and symmetrical, and she had equal perception of touch and pinprick sensation bilaterally. She had diffuse tenderness to palpation over cervical, thoracic and lumbar paraspinal muscles. Straight leg raising test is negative bilaterally. She had painful range of motion of all four extremity joints. She is independent with rolling from side to side. No significant cervical, thoracic or lumbar paraspinal muscle spasm was noted at this time. She is not interested in getting out of bed at present time. ASSESSMENT: A middle-aged female with chronic lower back pain, most probably from chronic muscle strain and also chronic neck pain. No clinical evidence of cervical, thoracic or lumbar radiculopathy. No clinical evidence of peripheral neuropathy. The patient with known carcinoma of the kidney, status post right nephrectomy, previous back surgeries, chronic obstructive pulmonary disease, hypertension, hypercholesterolemia, pancreatitis. Herpes zoster skin lesions in the past. RECOMMENDATIONS: Agree with the plans for home with home health followup. She is not a rehabilitation candidate. If she is interested in getting a better and participating in therapy, she can get around better, but I am not sure if she had interest in getting up and walking around. Dr. Kuo, I appreciate asking me to participate in the care of this interesting patient. I will be glad to follow her with you as needed for her rehabilitation. LEIGH ANN KAPLAN MD DR: DOREEN/quinton JOB#: [id number] / [id number]
--- NOTE | 2019-01-05 17:06 | PDOC3 ---
Discharge Summary Visit Information Date of Admission: Dec 29, 2018 Date of Discharge: Jan 02, 2019 Admitting Diagnosis: acute bronchitis Final Diagnosis 1- COPD exacerbation, 2-tobacco abuse 1 ppd 3-fibromyalgia and chronic pain, narcotic pain med seeking behavior, opioid tolerance and dependence 4-anxiety and depression 5-hip pain and back pain 6-right side chest pain 7-GERD 8. hypertension, uncontrolled 9. hypercapnic, hypoxic respiratory failure 10. obesity, BMI 30 11. narcotic seeking behavior and non-compliance with medical advice 13. History of right renal cell cancer, status post right nephrectomy and being followed at and has been told that she has cancer on her left kidney as well. Problems Medical Problems: (1) Chronic pain Status: Acute (2) COPD exacerbation Status: Acute Brief Hospital Course Allergies Allergies Coded Allergies Type Severity Reaction Last Updated Verified adhesive tape Allergy Intermediate rash on the site of application 01/01/19 Yes codeine Allergy Intermediate hives 02/27/15 Yes fentanyl Allergy Intermediate Nausea and Vomiting 02/27/15 Yes morphine Adverse Reaction Intermediate vomiting 02/27/15 Yes Brief Hospital Course Ms. Oquendo is a 58 old female, admit with acute on chronic pain, COPD exacerbation, dyspnea and cough, similar to prior admit 1 mo prior. better with nebs, steriods, abx, complained of back pain, refused to DC when on room air on 01/01, due to pain, wanted more pain meds, Discharge Information Condition at Discharge: Improved Follow Up: Weeks Disposition/Orders: D/C to Home Scheduled Amlodipine Besylate (Amlodipine Besylate) 5 Mg Tablet, 5 MG PO DAILY for hypertension, #30 Prescribed by: YANIV LOMELI on 01/02/19 0851 Azithromycin (Azithromycin Tablet) 250 Mg Tablet, 1 PKG PO UD for bronchitis exacerbation, #5 Prescribed by: YANIV LOMELI on 01/02/19 0853 Cholecalciferol (Vitamin D3) (Vitamin D3) 5,000 Unit Tablet, 1 TAB PO WEEKLY, #30 (Reported) Entered as Reported by: ANGELIC TSANG on 01/27/182205 Last Action: Converted on 12/29/18 112 by LENO SAM MD Escitalopram Oxalate (Escitalopram Oxalate) 10 Mg Tablet, 10 MG PO DAILY for ANTI-DEPRESSANT, #30 Ref 0 (Reported) Entered as Reported by: NICKY MATHEW on 4/19/19 0228 Last Action: Converted on 12/29/181126 by LENO SAM MD Fluticasone Propionate (Flonase Allergy Relief) 9.9 Ml [place].susp, 2 SPRAYS NS DAILY, (Reported) Entered as Reported by: ANGELIC TSANG on 01/27/182205 Last Action: Converted on 12/29/181126 by LENO SAM MD Ipratropium [place] (Atrovent Hfa) 12.9 Gm Hfa.aer.ad, 1 PUFF IH QID for wheezing, #12.9 Ref 5 (Reported) Entered as Reported by: NICKY MATHEW on 12/29/18232 Last Action: Converted on 12/29/181126 by LENO SAM MD Lisinopril (Lisinopril) 40 Mg Tablet, 1 TAB PO DAILY, #30 Ref 5 (Reported) Entered as Reported by: ANGELIC TSANG on 01/27/182205 Last Action: Continued on 12/29/181126 by LENO SAM MD Polyethylene Glycol 3350 (Miralax) 17 Gm Powd.pack, 1 PACKET PO DAILY, #30 Ref 3 (Reported) Entered as Reported by: ANGELIC TSANG on 01/28/18303 Last Action: Converted on 12/29/181126 by LENO SAM MD Prednisone (Prednisone ) 10 Mg Tablet, 10 MG PO UD for PREDNISONE TAPER, #39 Ref 0 Take 3 tablets by mouth twice a day for 3 days, then take 2 tablets by mouth twice a day for 3 days, then take 1 tablet by mouth twice a day for 3 days, then take 1 tablet by mouth daily x 3 days, then stop. Prescribed by: YANIV LOMELI on 01/02/19 0851 Sennosides (Senokot) 8.6 Mg Tablet, 8.6 MG PO BID for costipation, (Reported) Entered as Reported by: NICKY MATHEW on 12/29/18232 Last Action: Converted on 12/29/181126 by LENO SAM MD Scheduled PRN Albuterol Sulfate (Albuterol Sulfate Neb Soln) 2.5 Mg/3 Ml Vial.neb, 1 VIAL NEB PRN Q4HRS PRN for WHEEZING, #50 (Reported) Entered as Reported by: ANGELIC TSANG on 01/27/182205 Last Action: Continued on 12/29/181126 by LENO SAM MD Alprazolam (Alprazolam) 0.5 Mg Tablet, 1 MG PO TID PRN for ANXIETY / AGITATION, Ref 0 (Reported) Entered as Reported by: NICKY MATHEW on 12/29/18232 Last Action: Continued on 12/29/181126 by LENO SAM MD Cyclobenzaprine Hcl (Cyclobenzaprine Hcl) 10 Mg Tablet, 10 MG PO TID PRN for MUSCLE SPASMS, #30 Prescribed by: YANIV LOMELI on 01/02/19850 Oxycodone Hcl (Oxycodone Hcl) 5 Mg Capsule, 10 MG PO PRN Q4HRS PRN for PAIN, #40 Ref 0 Prescribed by: YANIV LOMELI on 01/02/19850 Promethazine Hcl (Promethazine Hcl) 25 Mg Tablet, 25 MG PO PRN Q6HRS PRN for NAUSEA/VOMITING, #20 Prescribed by: YANIV LOMELI on 01/02/1949 Discontinued Medications Oxycodone Hcl (Oxycontin) 60 Mg Tab.er.12h, 60 MG PO BID for PAIN, (Reported) Entered as Reported by: NICKY MATHEW on 12/29/18232 Last Action: Converted on 12/29/181126 by LENO SAM MD Patient Instructions Patient Instructions we had a large disagreement at time of discharge, she wanted me to refill her Long acting oxycontin and I refused as she had told me that her primary doctor had taken her off of it and had weaned her down. This was a conversation for more than 40 minutes, I advised her to seek care at the pain clinic for methadone or suboxone care, but she told me repeatly that she does not have a problem with pain meds, she just needs them so that she doesn't hurt, and that "nothing else works" and aggressively tried to steer me into writing for chronic pain meds, which I tried to explain to her is not good for fibromyalgia or chronic back pain, she left angry that I would not comply, and she did not listen to my concerns about taking large dose narcotics and benzodiazepenes face to face > 30 min YANIV LOMELI MD Jan 05, 2019 17:06
== END 2019-01-02 09:56 | disposition home or self-care (01) | DRG 871 ==
LOC: ER 22:03 → 6 SOUTH 12-29 00:08
PROVIDERS: ADMIT Internal Medicine; ATTEND Internal Medicine
DX: A41.9 Sepsis, unspecified organism (principal); J96.02 Acute respiratory failure with hypercapnia; J44.1 Chronic obstructive pulmonary disease with (acute) exacerbation; J44.0 Chronic obstructive pulmonary disease with (acute) lower respiratory infection; I10 Essential (primary) hypertension; E78.5 Hyperlipidemia, unspecified; M79.7 Fibromyalgia; M19.90 Unspecified osteoarthritis, unspecified site; E78.00 Pure hypercholesterolemia, unspecified; Z90.5 Acquired absence of kidney; Z85.528 Personal history of other malignant neoplasm of kidney; Z90.49 Acquired absence of other specified parts of digestive tract; Z88.5 Allergy status to narcotic agent; R29.6 Repeated falls; G62.9 Polyneuropathy, unspecified; K21.9 Gastro-esophageal reflux disease without esophagitis; F41.9 Anxiety disorder, unspecified; F32.9 Major depressive disorder, single episode, unspecified; Z90.710 Acquired absence of both cervix and uterus; Z82.49 Family history of ischemic heart disease and other diseases of the circulatory system; F17.210 Nicotine dependence, cigarettes, uncomplicated; J20.9 Acute bronchitis, unspecified; G89.4 Chronic pain syndrome; K22.9 Disease of esophagus, unspecified; M51.16 Intervertebral disc disorders with radiculopathy, lumbar region; Z79.891 Long term (current) use of opiate analgesic; F12.90 Cannabis use, unspecified, uncomplicated; Z86.19 Personal history of other infectious and parasitic diseases
CPT/HCPCS: 36415; 71045; 71250; 73502; 80053; 80061; 82553; 83605; 83690; 83735; 83880; 84484; 85007; 85025; 85610; 85730; 87040; 93005; 93306; 94640; 94760; 96361; 96374; 96375; J0696; J1100; J1650; J2060; J2405; J2920; J7030; J7512; J7613; J7626; J7644; Q0144; 99285-25

== ENCOUNTER 2021-07-17 11:29 | Inpatient (IN) | payer OTHER ==
[~2021-07-17] VITALS: Ht 160 cm; Wt 75.3 kg
[~2021-07-17 11:29] MED LIST changes: +ALPR0.5T6 PO; +AMLO-186 PO; +AMLO-187 PO; -AMLO10TA8 PO; +ATROVENT HFA12.9 GM IH; +AZIT250T6 PO; +CYCL10TA19 PO; -CYCL10TA2 PO; +LISI10TA16 PO; -LISI10TA2 PO; +OXYC5CAP PO; +PRED-220 PO; +PROM25TA10 PO; +SENN8.6T99 PO
[2021-07-17 12:15] LABS: BASE EXCESS COOX 2 mmol/L (-3-3); HCO3 COOX 28 mmol/L (21-28); METHEMOGLOBIN 0.4 % (0.0-1.9); OXYHEMOGLOBIN 88.3 %; PCO2 COOX 47 mmHg (35-46); PO2 COOX 62 mmHg (75-108); SAT O2 COOX 92 % (92-99)
[2021-07-17] MEDS ORDERED: IPRATRPIUM/ALBUTEROL 0.5/2.5MG 3 ML NEBU. NEB ONE (12:15)
[2021-07-17] MEDS ORDERED: methylPREDNISolone SOD SUCC PF 125 MG/2 ML VIAL. IV ONE ×2 (12:15→17:00)
[2021-07-17] MEDS ORDERED: IV NORMAL SALINE 1000ML BAG 1,000 ML IV ONE (12:15)
--- NOTE | 2021-07-17 12:18 | PHYS DOC ---
Past Medical History Past Medical History: Arthritis, Cancer, COPD, Fibromyalgia, High Cholesterol, Hypertension, Pancreatitis Additional Past Medical Histor: chronic pain,fibromyalgia,kidney cancer-no chemo,only surgery, shingles (STEPHON TURNER DIGITAL DESIGNER) Past Surgical History: Cholecystectomy, , Other Additional Past Surgical Histo: BACK SURGERIES, RIGHT NEPHRECTOMY (STEPHON TURNER DIGITAL DESIGNER) Smoking Status: Current Every Day Smoker Alcohol Use: None Drug Use: None, Marijuana (STEPHON TURNER DIGITAL DESIGNER) General Adult EDM: Chief Complaint: SHORTNESS OF BREATH HPI: HPI: Patient is a 60 year old female who presents with 2 weeks of shortness of breath, chest pain, cough, fever, headache and nasal congestion. She is only had her first Covid shot recently. She states that she has been having to use her inhaler and breathing treatments more often. She states over the last 2 days she has worsened. Patient is a history of high cholesterol, hypertension, pancreatitis, smoking, , arthritis, COPD, kidney cancer with a right nephrectomy and fibromyalgia. She is not currently on any kind of chemo or radiation. She states that her back is hurting due to all the coughing. (STEPHON TURNER DIGITAL DESIGNER) Review of Systems: Review of Systems: Constitutional: +fever or +chills. [] Eyes: Denies change in visual acuity. [] HENT: + nasal congestion or denies sore throat. + Nasal congestion [] Respiratory: +cough or +shortness of breath. [] Cardiovascular: Denies chest pain or edema. [] GI: Denies abdominal pain, nausea, vomiting, bloody stools or diarrhea. [] : Denies dysuria. [] Musculoskeletal: + back pain or +generalized joint pain. [] Integument: Denies rash. [] Neurologic: + headache, denies focal weakness or sensory changes. [] Endocrine: Denies polyuria or polydipsia. [] Lymphatic: Denies swollen glands. [] Psychiatric: Denies depression or anxiety. [] (STEPHON TURNER DIGITAL DESIGNER) Heart Score: C/O Chest Pain: No HEART Score for Chest Pain: HEART Score for Chest Pain Response (Comments) Value History Slighlty/Non-Suspicious 0 ECG Nonspecific Repolarizatio 1 Age >45 - < 65 1 Risk Factors 1 or 2 Risk Factors 1 Troponin < Normal Limit 0 Total 3 Risk Factors: Risk Factors: DM, Current or recent (<one month) smoker, HTN, HLP, family history of CAD, obesity. Risk Scores: Score 0 - 3: 2.5% MACE over next 6 weeks - Discharge Home Score 4 - 6: 20.3% MACE over next 6 weeks - Admit for Clinical Observation Score 7 - 10: 72.7% MACE over next 6 weeks - Early Invasive Strategies (STEPHON TURNER APRN) Current Medications: Current Medications Medications (Trade) Dose Ordered Sig/Naman Start Time Stop Time Status Last Admin Dose Admin Albuterol/ Ipratropium (Duoneb) 3 ml 1X ONCE 07/17/21 12:15 07/17/21 12:16 Methylprednisolone Sodium Succinate (SOLU-Medrol 125MG VIAL) 125 mg 1X ONCE 07/17/21 12:15 07/17/21 12:16 Sodium Chloride 1,000 ml @ 1,000 mls/hr 1X ONCE 07/17/21 12:15 07/17/21 13:14 (STEPHON TURNER APRN) Allergies: Allergies: Allergies Coded Allergies Type Severity Reaction Last Updated Verified adhesive tape Allergy Intermediate rash on the site of application 01/01/19 Yes codeine Allergy Intermediate hives 02/27/15 Yes fentanyl Allergy Intermediate Nausea and Vomiting 02/27/15 Yes morphine Adverse Reaction Intermediate vomiting 02/27/15 Yes (STEPHON TURNER APRN) Physical Exam: PE: Constitutional: Well developed, well nourished, no acute distress, non-toxic appearance. [] HENT: Normocephalic, atraumatic, bilateral external ears normal, oropharynx moist, no oral exudates, nose normal. [] Eyes: PERRLA, EOMI, conjunctiva normal, no discharge. [] Neck: Normal range of motion, no tenderness, supple, no stridor. [] Cardiovascular:Heart rate regular tachycardic rhythm, no murmur [] Lungs & Thorax: Bilateral breath sounds coarse to auscultation [] Abdomen: Bowel sounds normal, soft, no tenderness, no masses, no pulsatile masses. [] Skin: Warm, dry, no erythema, no rash. [] Back: No tenderness, no CVA tenderness. [] Extremities: No tenderness, no cyanosis, no clubbing, ROM intact, no edema. [] Neurologic: Alert and oriented X 3, normal motor function, normal sensory function, no focal deficits noted. [] Psychologic: Affect normal, judgement normal, mood normal. [] (STEPHON TURNER APRN) EKG: EK and read by Dr. Bunch as sinus tachycardia no STEMI (STEPHON TURNER APRN) Radiology/Procedures: Radiology/Procedures: [] Impression: [facility] [address] [place] [address] IMAGING REPORT Signed PATIENT: STEVEN BHATTI LACCOUNT: [id number] : 1960 LOCATION: ER AGE: 60 SEX: F EXAM STATUS: REG ER ORD. PHYSICIAN: STEPHON TURNER APRN REASON: soa, cough (PNR [id number]) PROCEDURE: PORTABLE CHEST 1V EXAM: XR CHEST 1V 07/17/2021 12:07 PM CLINICAL INDICATION: Shortness of air, cough COMPARISON: Chest radiograph 12/28/2018 TECHNIQUE: AP upright view of the chest FINDINGS: The heart is normal in size. Lungs are well-expanded. There are hazy opacities in the lung bases, likely due to superimposed breast tissue. No pleural effusion or pneumothorax. No pulmonary edema. No acute osseous abnormality. IMPRESSION: Hazy opacity at the lung bases most likely due to superimposed breast tissue. No definite acute abnormality. Electronically signed by: Vanessa Up MD (07/17/2021 1:04 PM) [id number] DICTATED and SIGNED BY: VANESSA UP MD DATE: 07/17/21 [id number] (STEPHON TURNER APRN) Course & Med Decision Making: Course & Med Decision Making Pertinent Labs and Imaging studies reviewed. (See chart for details) COVID-19 CRITERIA: The patient was evaluated during the global COVID-19 anna aishwarya, and that diagnosis was suspected/considered upon their initial presentation. Their evaluation, treatment and testing was consistent with current guidelines for patients who present with complaints or symptoms that may be related to COVID-19. See HPI. Alert and oriented x4. Ambulatory steady gait. Speaks in full clear sentences. Bilateral lungs sounds are coarse with some wheezing. She is 90% on room air. No extremity edema. Skin pink warm and dry. Tachycardic in the 120s. Patient is given normal saline, Zosyn, Tylenol, Toradol, Ativan. She is very anxious. Patient is told several times that family is not allowed to come back due to her having Covid symptoms. She is not requiring oxygen at this time. She is admitted to the hospital. She is asking for OxyContin for her pain as she states she takes this at home. Patient is very hypertensive upon arrival and she was given hydralazine and is brought her blood pressure down to the 170s. [] (STEPHON TURNER APRN) Course & Med Decision Making I have participated in the care of this patient and I have reviewed and agree with all pertinent clinical information above including history, exam, and recommendations. Susan Bunch DO (SUSAN BUNCH DO) Alex Disclaimer: Alex Disclaimer: This electronic medical record was generated, in whole or in part, using a voice recognition dictation system. (STEPHON TURNER APRN) COVID-19 Patient Risks: Age 65 or older: No Sign of co-morbidity: Yes Exp to person + for COVID: No Exp to PUI: No Travel from affected area: No Lower respiratory symptoms: Yes Fever: Yes Other: No (STEPHON TURNER APRN) PPE Use: Full PPE with N95 mask or PAPR: Yes (STEPHON TURNER APRN) Departure Departure Impression: Primary Impression: COPD exacerbation Additional Impression: Person under investigation for COVID-19 Disposition: 09 ADMITTED INPATIENT Admitting Physician: THEODORE (STEPHON TURNER APRN) Condition: STABLE Referrals: ISACC HAMPTON MD (PCP) STEPHON TURNER APRN Jul 17, 2021 12:18 SUSAN BUNCH DO Jul 17, 2021 18:08
[2021-07-17 12:20] LABS: BASO # 0.1 x10^3/uL (0.0-0.2); BASO % 1 % (0-3); EOS # 0.2 x10^3/uL (0.0-0.7); EOS % 1 % (0-3); HEMATOCRIT 48.9 % (36.0-47.0); HEMOGLOBIN 16.7 g/dL (12.0-15.5); LYMPH # 2.7 x10^3/uL (1.0-4.8); LYMPH % 21 % (24-48); MEAN CORPUSCULAR HEMOGLOBIN 31 pg (25-35); MEAN CORPUSCULAR HGB CONC 34 g/dL (31-37); MEAN CORPUSCULAR VOLUME 90 fL (79-100); MONO # 1.3 x10^3/uL (0.0-1.1); MONO % 10 % (0-9); NEUT # 8.6 x10^3/uL (1.8-7.7); NEUT % 67 % (31-73); PLATELET COUNT 299 x10^3/uL (140-400); RED BLOOD COUNT 5.44 x10^6/uL (3.50-5.40); RED CELL DISTRIBUTION WIDTH 14.4 % (11.5-14.5); WHITE BLOOD COUNT 12.9 x10^3/uL (4.0-11.0)
[2021-07-17] MEDS ORDERED: hydrALAZINE 20 MG/ML VIAL. ONE (12:23)
[2021-07-17 12:30] LABS: CALCIUM 9.3 mg/dL (8.5-10.1); GFR 56.9; POTASSIUM 4.4 mmol/L (3.5-5.1)
[2021-07-17] MEDS ORDERED: ACETAMINOPHEN 500 MG TABLET PO ONE (12:30)
[2021-07-17] MEDS ORDERED: PIPERACILLIN/TAZOBACTAM 3.375 GM in IV NORMAL SALINE 50ML 50 ML IV ONE (12:30)
[2021-07-17] MEDS ORDERED: hydrALAZINE 20 MG/ML VIAL. IVP ONE (12:30)
[2021-07-17 12:36] LABS: ALBUMIN 3.5 g/dL (3.4-5.0); ALBUMIN/GLOBULIN RATIO 0.7 (1.0-1.7); TOTAL BILIRUBIN 0.4 mg/dL (0.2-1.0); TOTAL PROTEIN 8.2 g/dL (6.4-8.2)
[2021-07-17] MEDS ORDERED: KETOROLAC 15 MG/ML VIAL. IVP ONE (12:45)
--- NOTE | 2021-07-17 13:07 | RAD ---
EXAM: XR CHEST 1V 07/17/2021 12:07 PM CLINICAL INDICATION: Shortness of air, cough COMPARISON: Chest radiograph 12/28/2018 TECHNIQUE: AP upright view of the chest FINDINGS: The heart is normal in size. Lungs are well-expanded. There are hazy opacities in the lung bases, likely due to superimposed breast tissue. No pleural effusion or pneumothorax. No pulmonary e coleen. No acute osseous abnormality. IMPRESSION: Hazy opacity at the lung bases most likely due to superimposed breast tissue. No definit e acute abnormality. Electronically signed by: Vanessa Up MD (07/17/2021 1:04 PM) [id number]
[2021-07-17 13:53] LABS: BILIRUBIN,URINE NEGATIVE (NEG); CLARITY,URINE CLEAR; COLOR,URINE YELLOW; NITRITE,URINE NEGATIVE (NEG); PH,URINE 5.5 (<5.0-8.0); PROTEIN,URINE 30 mg/dL (NEG-TRACE); UROBILINOGEN,URINE 0.2 mg/dL (0.2 mg/dL)
[2021-07-17 14:19] LABS: BACTERIA,URINE FEW /HPF (0-FEW)
[2021-07-17 14:20] LABS: RBC,URINE 0 /HPF (0-2); WBC,URINE OCC /HPF (0-4)
--- NOTE | 2021-07-17 14:41 | NUR ---
Pt arrived on unit at 1430 by bed via ED staff. Pt crying upon arrival, states pain is 9/10 in back and legs. Pt states the ER wouldn't let her have her normal home pain medication. POC/orders reviewed, tele monitor applied. Will assume care of this pt.
[2021-07-17] MEDS ORDERED: IPRA4AER IH (14:55)
[2021-07-17] MEDS ORDERED: OXYC30TA64 PO (14:55)
[2021-07-17] MEDS ORDERED: LIDO1ADH63 TP (14:55)
[2021-07-17] MEDS ORDERED: DIAZ5TAB4 PO (14:58)
[2021-07-17 15:00] VITALS: BP 162/135
[2021-07-17] MEDS ORDERED: LISI1TAB39 PO (15:01)
--- NOTE | 2021-07-17 16:17 | PDOC1 ---
History and Physical Date of Service: DOS: DATE: 07/17/21 TIME: 16:15 Chief Complaint: Problems: (1) Drug-seeking behavior (2) Cough (3) Dyspnea Chief Complain: sob cough History of Present Illness: HPI: Patient is a 60 year old female who presents with 2 weeks of shortness of breath, chest pain, cough, fever, headache and nasal congestion. She is only had her first Covid shot recently. She states that she has been having to use her inhaler and breathing treatments more often. She states over the last 2 days she has worsened. Patient is a history of high cholesterol, hypertension, pancreatitis, smoking, , arthritis, COPD, kidney cancer with a right nephrectomy and fibromyalgia. She is not currently on any kind of chemo or radiation. She states that her back is hurting due to all the coughing. When I evaluated patient on the floor she was still complaining of a fair bit of cough. She is very concerned about her home pain medications which I have resumed. Continue treatment with antibiotics breathing treatments as needed Past Medical/Surgical History: PMH/PSH: Arthritis, Cancer, COPD, Fibromyalgia, High Cholesterol, Hypertension, Pancreatitis, chronic pain,fibromyalgia,kidney cancer-no chemo,only surgery, shingles Allergies: Allergies: Coded Allergies: adhesive tape (Verified Allergy, Intermediate, rash on the site of application, 01/01/19) codeine (Verified Allergy, Intermediate, hives, 02/27/15) fentanyl (Verified Allergy, Intermediate, Nausea and Vomiting, 02/27/15) hives morphine (Verified Adverse Reaction, Intermediate, vomiting, 02/27/15) Family History: Family History: Reviewed with patient no known Social History: Social History: daily smoker tobacco, occ marijuana, denies alcohol Current Medications: Current Medications Current Medications Methylprednisolone Sodium Succinate (SOLU-Medrol 125MG VIAL) 125 mg 1X ONCE IV Last administered on 07/17/21at 12:18; Start 07/17/21 at 12:15; Stop 07/17/21 at 12:16; Status DC Albuterol/ Ipratropium (Duoneb) 3 ml 1X ONCE NEB Last administered on 07/17/21at 12:14; Start 07/17/21 at 12:15; Stop 07/17/21 at 12:16; Status DC Sodium Chloride 1,000 ml @ 1,000 mls/hr 1X ONCE IV Last administered on 07/17/21at 12:18; Start 07/17/21 at 12:15; Stop 07/17/21 at 13:14; Status DC Hydralazine HCl (Apresoline Inj) 10 mg 1X ONCE IVP Last administered on 07/17/21at 12:26; Start 07/17/21 at 12:30; Stop 07/17/21 at 12:31; Status DC Hydralazine HCl (Apresoline Inj) 20 mg STK-MED ONCE .ROUTE ; Start 07/17/21 at 12:23; Stop 07/17/21 at 12:24; Status DC Piperacillin Sod/ Tazobactam Sod 3.375 gm/Sodium Chloride 50 ml @ 100 mls/hr 1X ONCE IV Last administered on 07/17/21at 12:52; Start 07/17/21 at 12:30; Stop 07/17/21 at 12:59; Status DC Acetaminophen (Tylenol) 1,000 mg 1X ONCE PO Last administered on 07/17/21at 12:53; Start 07/17/21 at 12:30; Stop 07/17/21 at 12:31; Status DC Lorazepam (Ativan Inj) 0.5 mg 1X ONCE IVP Last administered on 07/17/21at 12:53; Start 07/17/21 at 12:45; Stop 07/17/21 at 12:46; Status DC Ketorolac Tromethamine (Toradol 15mg Vial) 15 mg 1X ONCE IVP Last administered on 07/17/21at 12:52; Start 07/17/21 at 12:45; Stop 07/17/21 at 12:46; Status DC Diazepam (Valium) 5 mg TID PO ; Start 07/17/21 at 21:00 Polyethylene Glycol (miraLAX PACKET) 17 gm DAILY PO ; Start 07/18/21 at 09:00 Sennosides (Senna) 8.6 mg BID PO ; Start 07/17/21 at 21:00 Citalopram Hydrobromide (CeleXA) 20 mg DAILY PO ; Start 07/18/21 at 09:00 Fluticasone Propionate (Flonase) 2 spray DAILY NS ; Start 07/18/21 at 09:00 Albuterol/ Ipratropium (Combivent Respimat 20-100 Mcg) 1 puff RTQID INH ; Start 07/17/21 at 17:00 Lisinopril (Prinivil) 20 mg DAILY PO ; Start 07/17/21 at 17:00 Hydrochlorothiazide (Hydrodiuril) 25 mg DAILY PO ; Start 07/17/21 at 17:00 Active Scripts Active Oxycodone Hcl 5 Mg Capsule 10 Mg PO PRN Q4HRS PRN Promethazine Hcl 25 Mg Tablet 25 Mg PO PRN Q6HRS PRN Cyclobenzaprine Hcl 10 Mg Tablet 10 Mg PO TID PRN Reported Lisinopril-Hctz 20-25 Mg Tab (Lisinopril/Hydrochlorothiazide) 1 Each Tablet 1 Tab PO DAILY Diazepam 5 Mg Tablet 5 Mg PO TID Lidocaine 1 Each Adh..patch 1 Each TP DAILY Oxycontin (Oxycodone HCl) 30 Mg Tab.er.12h 1 Tab PO BID MDD 2 Tablet(s) 30 Days Combivent Respimat Inhal (Ipratropium/Albuterol Sulfate) 4 Gm Aer.w.adap 2 Inh IH QID Senokot (Sennosides) 8.6 Mg Tablet 8.6 Mg PO BID Escitalopram Oxalate 10 Mg Tablet 10 Mg PO DAILY Miralax (Polyethylene Glycol 3350) 17 Gm Powd.pack 1 Packet PO DAILY Albuterol Sulfate Neb Soln (Albuterol Sulfate) 2.5 Mg/3 Ml Vial.neb 1 Vial NEB PRN Q4HRS PRN Flonase Allergy Relief (Fluticasone Propionate) 9.9 Ml [place].susp 2 Sprays NS DAILY Vitamin D3 (Cholecalciferol (Vitamin D3)) 5,000 Unit Tablet 1 Tab PO WEEKLY ROS: Review of Systems Review of System Unless noted in HPI 14 point review of systems was negative Physical Exam: Vital Signs: Vital Signs Date Time Temp Pulse Resp B/P (MAP) Pulse Ox O2 Delivery O2 Flow Rate FiO2 07/17/21 15:00 99.1 117 22 162/135 (144) 91 Room Air 99.1 Physcial Exam: GEN: Distress due to pain HEENT: Normal cephalic, atraumatic, external auditory canals are patent EYES: Extraocular muscles are intact, pupil are equally round and reactive to light and accommodation MUSCULOSKELETAL: Well developed , well nourished, good range of motion ENDOCRINE: No thyromegaly was palpated LYMPHATICS: No cervical chain or axillary nodes were noted HEMATOPOIETIC: No bruising NECK: Supple, no JVD, no thyromegaly was noted LUNGS: Clear to auscultation in all lung slaughter without rhonchi or wheezing HEART: RRR, S1, S2 present. Peripheral pulses intact, no obvious murmurs noted ABDOMEN: Soft, nontender. Positive bowel sounds, no organomegaly, normal bowel sounds EXTREMITIES: Without clubbing, cyanosis, or edema. Pedal pulses intact. NEUROLOGIC: Normal speech and tone. A&O x 3, moves all extremities, no obvious focal deficits PSYCHIATRIC: Normal affect, normal mood. Stable SKIN: No ulcerations or rashes, good skin turgor, no jaundice VASCULAR: Good capillary refill, neurovascular bundle appears to be intact Labs: Labs: Laboratory Tests Test 07/17/21 11:58 07/17/21 12:02 07/17/21 12:05 07/17/21 13:39 White Blood Count 12.9 x10^3/uL (4.0-11.0) Red Blood Count 5.44 x10^6/uL (3.50-5.40) Hemoglobin 16.7 g/dL (12.0-15.5) Hematocrit 48.9 % (36.0-47.0) Mean Corpuscular Volume 90 fL (79-100) Mean Corpuscular Hemoglobin 31 pg (25-35) Mean Corpuscular Hemoglobin Concent 34 g/dL (31-37) Red Cell Distribution Width 14.4 % (11.5-14.5) Platelet Count 299 x10^3/uL (140-400) Neutrophils (%) (Auto) 67 % (31-73) Lymphocytes (%) (Auto) 21 % (24-48) Monocytes (%) (Auto) 10 % (0-9) Eosinophils (%) (Auto) 1 % (0-3) Basophils (%) (Auto) 1 % (0-3) Neutrophils # (Auto) 8.6 x10^3/uL (1.8-7.7) Lymphocytes # (Auto) 2.7 x10^3/uL (1.0-4.8) Monocytes # (Auto) 1.3 x10^3/uL (0.0-1.1) Eosinophils # (Auto) 0.2 x10^3/uL (0.0-0.7) Basophils # (Auto) 0.1 x10^3/uL (0.0-0.2) Sodium Level 139 mmol/L (136-145) Potassium Level 4.4 mmol/L (3.5-5.1) Chloride Level 100 mmol/L (98-107) Carbon Dioxide Level 30 mmol/L (21-32) Anion Gap 9 (6-14) Blood Urea Nitrogen 18 mg/dL (7-20) Creatinine 1.0 mg/dL (0.6-1.0) Estimated GFR (Cockcroft-Gault) 56.9 BUN/Creatinine Ratio 18 (6-20) Glucose Level 121 mg/dL (70-99) Lactic Acid Level 1.3 mmol/L (0.4-2.0) Calcium Level 9.3 mg/dL (8.5-10.1) Total Bilirubin 0.4 mg/dL (0.2-1.0) Aspartate Amino Transf (AST/SGOT) 39 U/L (15-37) Alanine Aminotransferase (ALT/SGPT) 82 U/L (14-59) Alkaline Phosphatase 198 U/L (46-116) Troponin I High Sensitivity < 4 ng/L (4-50) FB-Gsi-R-Type Natriuretic Peptide 68 pg/mL (0-124) Total Protein 8.2 g/dL (6.4-8.2) Albumin 3.5 g/dL (3.4-5.0) Albumin/Globulin Ratio 0.7 (1.0-1.7) SARS-CoV-2 RNA (LESLY) Negative (Negative) SARS-CoV-2 Antigen (Rapid) Negative (NEGATIVE) O2 Saturation 92 % (92-99) Arterial Blood pH 7.39 (7.35-7.45) Arterial Blood pCO2 at Patient Temp 47 mmHg (35-46) Arterial Blood pO2 at Patient Temp 62 mmHg (75-108) Arterial Blood HCO3 28 mmol/L (21-28) Arterial Blood Base Excess 2 mmol/L (-3-3) Oxyhemoglobin 88.3 % Methemoglobin 0.4 % (0.0-1.9) Carbon Monoxide, Quantitative 3.6 % (0.0-1.9) FiO2 21% Urine Collection Type Unknown Urine Color Yellow Urine Clarity Clear Urine pH 5.5 (<5.0-8.0) Urine Specific [place] 1.015 (1.000-1.030) Urine Protein 30 mg/dL (NEG-TRACE) Urine Glucose (UA) Negative mg/dL (NEG) Urine Ketones (Stick) Negative mg/dL (NEG) Urine Blood Negative (NEG) Urine Nitrite Negative (NEG) Urine Bilirubin Negative (NEG) Urine Urobilinogen Dipstick 0.2 mg/dL (0.2 mg/dL) Urine Leukocyte Esterase Negative (NEG) Urine RBC 0 /HPF (0-2) Urine WBC Occ /HPF (0-4) Urine Squamous Epithelial Cells Many /LPF Urine Bacteria Few /HPF (0-FEW) Laboratory Tests Test 07/17/21 11:58 07/17/21 12:02 07/17/21 12:05 07/17/21 13:39 White Blood Count 12.9 x10^3/uL (4.0-11.0) Red Blood Count 5.44 x10^6/uL (3.50-5.40) Hemoglobin 16.7 g/dL (12.0-15.5) Hematocrit 48.9 % (36.0-47.0) Mean Corpuscular Volume 90 fL (79-100) Mean Corpuscular Hemoglobin 31 pg (25-35) Mean Corpuscular Hemoglobin Concent 34 g/dL (31-37) Red Cell Distribution Width 14.4 % (11.5-14.5) Platelet Count 299 x10^3/uL (140-400) Neutrophils (%) (Auto) 67 % (31-73) Lymphocytes (%) (Auto) 21 % (24-48) Monocytes (%) (Auto) 10 % (0-9) Eosinophils (%) (Auto) 1 % (0-3) Basophils (%) (Auto) 1 % (0-3) Neutrophils # (Auto) 8.6 x10^3/uL (1.8-7.7) Lymphocytes # (Auto) 2.7 x10^3/uL (1.0-4.8) Monocytes # (Auto) 1.3 x10^3/uL (0.0-1.1) Eosinophils # (Auto) 0.2 x10^3/uL (0.0-0.7) Basophils # (Auto) 0.1 x10^3/uL (0.0-0.2) Sodium Level 139 mmol/L (136-145) Potassium Level 4.4 mmol/L (3.5-5.1) Chloride Level 100 mmol/L (98-107) Carbon Dioxide Level 30 mmol/L (21-32) Anion Gap 9 (6-14) Blood Urea Nitrogen 18 mg/dL (7-20) Creatinine 1.0 mg/dL (0.6-1.0) Estimated GFR (Cockcroft-Gault) 56.9 BUN/Creatinine Ratio 18 (6-20) Glucose Level 121 mg/dL (70-99) Lactic Acid Level 1.3 mmol/L (0.4-2.0) Calcium Level 9.3 mg/dL (8.5-10.1) Total Bilirubin 0.4 mg/dL (0.2-1.0) Aspartate Amino Transf (AST/SGOT) 39 U/L (15-37) Alanine Aminotransferase (ALT/SGPT) 82 U/L (14-59) Alkaline Phosphatase 198 U/L (46-116) Troponin I High Sensitivity < 4 ng/L (4-50) VB-Cdg-O-Type Natriuretic Peptide 68 pg/mL (0-124) Total Protein 8.2 g/dL (6.4-8.2) Albumin 3.5 g/dL (3.4-5.0) Albumin/Globulin Ratio 0.7 (1.0-1.7) SARS-CoV-2 RNA (LESLY) Negative (Negative) SARS-CoV-2 Antigen (Rapid) Negative (NEGATIVE) O2 Saturation 92 % (92-99) Arterial Blood pH 7.39 (7.35-7.45) Arterial Blood pCO2 at Patient Temp 47 mmHg (35-46) Arterial Blood pO2 at Patient Temp 62 mmHg (75-108) Arterial Blood HCO3 28 mmol/L (21-28) Arterial Blood Base Excess 2 mmol/L (-3-3) Oxyhemoglobin 88.3 % Methemoglobin 0.4 % (0.0-1.9) Carbon Monoxide, Quantitative 3.6 % (0.0-1.9) FiO2 21% Urine Collection Type Unknown Urine Color Yellow Urine Clarity Clear Urine pH 5.5 (<5.0-8.0) Urine Specific [place] 1.015 (1.000-1.030) Urine Protein 30 mg/dL (NEG-TRACE) Urine Glucose (UA) Negative mg/dL (NEG) Urine Ketones (Stick) Negative mg/dL (NEG) Urine Blood Negative (NEG) Urine Nitrite Negative (NEG) Urine Bilirubin Negative (NEG) Urine Urobilinogen Dipstick 0.2 mg/dL (0.2 mg/dL) Urine Leukocyte Esterase Negative (NEG) Urine RBC 0 /HPF (0-2) Urine WBC Occ /HPF (0-4) Urine Squamous Epithelial Cells Many /LPF Urine Bacteria Few /HPF (0-FEW) Assessment/Plan Assessment/Plan Shortness of breath secondary to suspected bacterial pneumonia, drug-seeking behavior, history nephrectomy, COPD, hypertension high cholesterol pancreatitis -Patient presenting with shortness of breath fever cough. Received 1 Covid shot Covid here negative -Start Unasyn azithromycin for suspected pneumonia. -Gave 1 dose of Solu-Medrol today will reeval tomorrow for continuation -Breathing treatment -Home meds resumed as indicated -Pain medications ordered particularly patient very particular about her pain meds -DVT prophylaxis Justifications for Admission Other Justification MADAI HUBER MD Jul 17, 2021 16:17
[2021-07-17] MEDS: oxyCODONE IR 5 MG TABLET PO PRN ×2 (16:23→20:29)
[2021-07-17] MEDS ORDERED: FLU VACC QUAD 21-22 (6MOS+) PF 0.5 ML SYRINGE. VAX IM ONE (16:45)
[2021-07-17] MEDS ORDERED: IPRATROPIUM/ALBUTEROL 20/100mcg/INH INHALER. INH SCH (17:00)
--- NOTE | 2021-07-17 18:06 | EKG ---
[facility] [address] [place] [address] Test Date: 2021-07-17 Test Time: 11:52:18 Pat Name: STEVEN BHATTI Department: Room: 516 Gender: F [employer] Worker: : 1960 Requested By: STEPHON TURNER Order Number: [id number] Reading MD: Armando Dorman Measurements Intervals [place] Rate: 101 P: 82 IN: 140 QRS: 73 QRSD: 76 T: 70 QT: 316 QTc: 410 Interpretive Statements SINUS TACHYCARDIA OTHERWISE NORMAL ECG RI6.02 Compared to ECG 12/28/2018 22:15:41 Sinus rhythm no longer present Electronically Signed On 07-20-2021 9:37:52 MASTER MACHINIST by Armando Dorman
[2021-07-17] MEDS: LISINOPRIL 20 MG TABLET PO SCH (18:09)
[2021-07-17] MEDS: hydroCHLOROthiazide 25 MG TABLET PO SCH (18:09)
[2021-07-17] MEDS: oxyCODONE ER 15 MG TAB.ER.12H PO SCH (18:10)
--- NOTE | 2021-07-17 18:11 | NUR ---
Flu vaccine held at this time. Pt with elevated temperature. Will pass along to administer when appropriate.
[2021-07-17] MEDS: NICOTINE 14MG PATCH. TD SCH (18:45)
[2021-07-17 19:00] VITALS: BP 121/82
[2021-07-17] MEDS ORDERED: IPRATRPIUM/ALBUTEROL 0.5/2.5MG 3 ML NEBU. NEB SCH (20:00)
[2021-07-17] MEDS: SENNOSIDES 8.6 MG TABLET PO SCH (20:29)
[2021-07-17] MEDS: diazePAM 5 MG TABLET PO SCH (20:29)
[2021-07-17] MEDS: CYCLOBENZAPRINE 10 MG TABLET. PO PRN (20:29)
[2021-07-17] MEDS: IPRATRPIUM/ALBUTEROL 0.5/2.5MG 3 ML NEBU. NEB SCH (20:32)
[2021-07-17] MEDS ORDERED: oxyCODONE ER 15 MG TAB.ER.12H PO SCH (21:00)
[2021-07-17] MEDS: AZITHROMYCIN 500 MG in IV NORMAL SALINE 250ML 250 ML IV SCH (22:00)
[2021-07-18] MEDS: AMPICILLIN/SULBACTAM 3 GM in IV NORMAL SALINE 100ML 100 ML IV SCH ×4 (00:14→18:07)
[2021-07-18] MEDS: oxyCODONE IR 5 MG TABLET PO PRN ×4 (01:40→17:55)
[2021-07-18] MEDS ORDERED: IPRATRPIUM/ALBUTEROL 0.5/2.5MG 3 ML NEBU. NEB ONE (02:15)
[2021-07-18 07:00] VITALS: BP 127/94
--- NOTE | 2021-07-18 07:00 | CONS ---
DATE OF CONSULTATION: 07/18/2021 REASON FOR CONSULTATION: I was asked to see this 60-year-old lady for acute respiratory failure. HISTORY OF PRESENT ILLNESS: She has a history of 40-fehg-szci smoking, claims that she quit smoking a couple of weeks ago. For the past two weeks, she has had shortness of breath, cough, wheezing, occasional fever and chills. She has had leg pain. She has history of right nephrectomy for kidney cancer and three years ago, she had a DVT. She snores and has excessive daytime sleepiness, has not had a sleep study. Two years ago, she was on oxygen at night. She has multiple awakenings at night. PAST MEDICAL HISTORY: Arthritis, fibromyalgia, hypertension, pancreatitis, chronic pain, right kidney cancer, status post nephrectomy, cholecystectomy, . ALLERGIES: ADHESIVE TAPE, CODEINE, FENTANYL, MORPHINE. SOCIAL HISTORY: History of 51-winm-qaht smoking, quit smoking 2 weeks ago. FAMILY HISTORY: Hypertension. REVIEW OF SYSTEMS: As mentioned as above, other systems otherwise negative. PHYSICAL EXAMINATION: GENERAL: This is an overweight lady. VITAL SIGNS: Her O2 saturation on 2 liters of oxygen is 94%, respiratory rate 22, heart rate 100, blood pressure 120/82, temperature 100.8 yesterday, today is 98. HEENT: Normocephalic, atraumatic. Pupils equal, round, reactive to light. Shallow oropharynx. Nose is clear. NECK: Short, thick. CARDIOVASCULAR: Regular rate and rhythm. CHEST: Inspection is normal. LUNGS: There is end expiratory wheezing. ABDOMEN: Soft and obese. Bowel sounds are good. EXTREMITIES: There is trace edema. LYMPHATICS: There is no lymphadenopathy. NEUROLOGIC: Alert and oriented. LABORATORY DATA: I reviewed the following lab data. ABG: pH 7.39, pCO2 of 47, pO2 of 62 on room air. COVID-19 rapid testing and PCR negative. Sodium 139, potassium 4.4, chloride 100, CO2 30, BUN 18, creatinine 1, AST 39, ALT 82, alkaline phosphatase 198. BNP 68. Troponin less than 4. Lactic acid 1.3. WBC 12.9, hemoglobin 16.7, platelet 299. Chest x-ray does not show infiltrate. IMPRESSION: 1. Acute exacerbation of chronic obstructive pulmonary disease. 2. Acute bronchitis. 3. Obesity, snoring and excessive daytime sleepiness, suspect obstructive sleep apnea-hypopnea syndrome. 4. History of deep venous thrombosis. 5. History of right nephrectomy for kidney cancer. 6. Hypertension. PLAN AND RECOMMENDATIONS: 1. Continue not smoking. 2. Start bronchodilators. 3. Start Solu-Medrol 40 mg IV every 8 hours. 4. I will do a CT angiogram. 5. We will do lower extremity venous Doppler. 6. Continue antibiotic. 7. Start Lovenox for DVT prophylaxis. 8. I have discussed obstructive sleep apnea-hypopnea syndrome. The importance of diagnosis and treatment if untreated increase cardiovascular and LAB PACK CHEMIST morbidity or mortality. I do recommend a sleep study as an outpatient. Thank you very much for allowing me to participate in care of this very nice lady. MONA DR: Geremias TID: [id number]
[2021-07-18] MEDS: methylPREDNISolone SOD SUCC PF 40 MG/ML VIAL. IV SCH ×3 (07:04→20:20)
[2021-07-18] MEDS: IPRATRPIUM/ALBUTEROL 0.5/2.5MG 3 ML NEBU. NEB SCH ×4 (08:42→20:00)
[2021-07-18] MEDS: FLUTICASONE 50MCG/NASAL SPRAY 16GM BOTTLE. NS SCH (09:01)
[2021-07-18] MEDS: POLYETHYLENE GLYCOL 3350 17 GM PACKET. PO SCH (09:02)
[2021-07-18] MEDS: NICOTINE 14MG PATCH. TD SCH (09:03)
[2021-07-18] MEDS: hydroCHLOROthiazide 25 MG TABLET PO SCH (09:03)
[2021-07-18] MEDS: LISINOPRIL 20 MG TABLET PO SCH (09:04)
[2021-07-18] MEDS: SENNOSIDES 8.6 MG TABLET PO SCH ×2 (09:05→20:18)
[2021-07-18] MEDS: CITALOPRAM 20 MG TABLET. PO SCH (09:05)
[2021-07-18] MEDS: oxyCODONE ER 15 MG TAB.ER.12H PO SCH ×2 (09:05→20:18)
[2021-07-18] MEDS: diazePAM 5 MG TABLET PO SCH ×3 (09:05→20:19)
[2021-07-18] MEDS: CYCLOBENZAPRINE 10 MG TABLET. PO PRN ×2 (09:06→15:00)
[2021-07-18 11:00] VITALS: BP 128/78
--- NOTE | 2021-07-18 11:11 | PDOC ---
[facility] PROGRESS NOTE Date of Service DOS: DATE: 07/18/21 TIME: 11:09 Chief Complaint Chief Complaint Respiratory failure Pneumonia COPD History of nephrectomy Hypertension hyperlipidemia History of pancreatitis History of Present Illness History of Present Illness 07/18/2021 Patient seen and examined She is resting with no apparent distress Discussed with RN Chart reviewed Vitals/I&O Vitals/I&O: Vital Signs Date Time Temp Pulse Resp B/P (MAP) Pulse Ox O2 Delivery O2 Flow Rate FiO2 07/18/21 09:05 Room Air 07/18/21 09:04 109 121/82 07/18/21 08:42 96 07/18/21 07:00 97.5 16 97.5 I & O 07/17/21 07/17/21 07/18/21 15:00 23:00 07:00 Intake Total 1050 ml 150 ml 150 ml Balance 1050 ml 150 ml 150 ml Physical Exam General: No acute distress Heart: Regular rate Lungs: Wheezing Abdomen: Normal bowel sounds Extremities: No cyanosis Skin: No rashes Labs Labs: Laboratory Tests Test 07/17/21 11:58 07/17/21 12:02 07/17/21 12:05 07/17/21 13:39 White Blood Count 12.9 x10^3/uL (4.0-11.0) Red Blood Count 5.44 x10^6/uL (3.50-5.40) Hemoglobin 16.7 g/dL (12.0-15.5) Hematocrit 48.9 % (36.0-47.0) Mean Corpuscular Volume 90 fL (79-100) Mean Corpuscular Hemoglobin 31 pg (25-35) Mean Corpuscular Hemoglobin Concent 34 g/dL (31-37) Red Cell Distribution Width 14.4 % (11.5-14.5) Platelet Count 299 x10^3/uL (140-400) Neutrophils (%) (Auto) 67 % (31-73) Lymphocytes (%) (Auto) 21 % (24-48) Monocytes (%) (Auto) 10 % (0-9) Eosinophils (%) (Auto) 1 % (0-3) Basophils (%) (Auto) 1 % (0-3) Neutrophils # (Auto) 8.6 x10^3/uL (1.8-7.7) Lymphocytes # (Auto) 2.7 x10^3/uL (1.0-4.8) Monocytes # (Auto) 1.3 x10^3/uL (0.0-1.1) Eosinophils # (Auto) 0.2 x10^3/uL (0.0-0.7) Basophils # (Auto) 0.1 x10^3/uL (0.0-0.2) Sodium Level 139 mmol/L (136-145) Potassium Level 4.4 mmol/L (3.5-5.1) Chloride Level 100 mmol/L (98-107) Carbon Dioxide Level 30 mmol/L (21-32) Anion Gap 9 (6-14) Blood Urea Nitrogen 18 mg/dL (7-20) Creatinine 1.0 mg/dL (0.6-1.0) Estimated GFR (Cockcroft-Gault) 56.9 BUN/Creatinine Ratio 18 (6-20) Glucose Level 121 mg/dL (70-99) Lactic Acid Level 1.3 mmol/L (0.4-2.0) Calcium Level 9.3 mg/dL (8.5-10.1) Total Bilirubin 0.4 mg/dL (0.2-1.0) Aspartate Amino Transf (AST/SGOT) 39 U/L (15-37) Alanine Aminotransferase (ALT/SGPT) 82 U/L (14-59) Alkaline Phosphatase 198 U/L (46-116) Troponin I High Sensitivity < 4 ng/L (4-50) BK-Ptw-Q-Type Natriuretic Peptide 68 pg/mL (0-124) Total Protein 8.2 g/dL (6.4-8.2) Albumin 3.5 g/dL (3.4-5.0) Albumin/Globulin Ratio 0.7 (1.0-1.7) SARS-CoV-2 RNA (LESLY) Negative (Negative) SARS-CoV-2 Antigen (Rapid) Negative (NEGATIVE) O2 Saturation 92 % (92-99) Arterial Blood pH 7.39 (7.35-7.45) Arterial Blood pCO2 at Patient Temp 47 mmHg (35-46) Arterial Blood pO2 at Patient Temp 62 mmHg (75-108) Arterial Blood HCO3 28 mmol/L (21-28) Arterial Blood Base Excess 2 mmol/L (-3-3) Oxyhemoglobin 88.3 % Methemoglobin 0.4 % (0.0-1.9) Carbon Monoxide, Quantitative 3.6 % (0.0-1.9) FiO2 21% Urine Collection Type Unknown Urine Color Yellow Urine Clarity Clear Urine pH 5.5 (<5.0-8.0) Urine Specific [place] 1.015 (1.000-1.030) Urine Protein 30 mg/dL (NEG-TRACE) Urine Glucose (UA) Negative mg/dL (NEG) Urine Ketones (Stick) Negative mg/dL (NEG) Urine Blood Negative (NEG) Urine Nitrite Negative (NEG) Urine Bilirubin Negative (NEG) Urine Urobilinogen Dipstick 0.2 mg/dL (0.2 mg/dL) Urine Leukocyte Esterase Negative (NEG) Urine RBC 0 /HPF (0-2) Urine WBC Occ /HPF (0-4) Urine Squamous Epithelial Cells Many /LPF Urine Bacteria Few /HPF (0-FEW) Assessment and Plan Assessmemt and Plan Problems Medical Problems: (1) COPD exacerbation Status: Acute (2) Person under investigation for COVID-19 Status: Acute Respiratory failure Pneumonia COPD History of nephrectomy Hypertension hyperlipidemia History of pancreatitis Plan IV antibiotics IV steroids Home meds DVT prophylaxis Full code Trend labs Beta agonist As needed pain meds Comment Review of Relevant I have reviewed the following items rodolfo (where applicable) has been applied. Medications: Current Medications Medications (Trade) Dose Ordered Sig/Naman Route PRN Reason Start Time Stop Time Status Last Admin Dose Admin Methylprednisolone Sodium Succinate (SOLU-Medrol 125MG VIAL) 125 mg 1X ONCE IV 07/17/21 12:15 07/17/21 12:16 DC 07/17/21 12:18 Albuterol/ Ipratropium (Duoneb) 3 ml 1X ONCE NEB 07/17/21 12:15 07/17/21 12:16 DC 07/17/21 12:14 Sodium Chloride 1,000 ml @ 1,000 mls/hr 1X ONCE IV 07/17/21 12:15 07/17/21 13:14 DC 07/17/21 12:18 Hydralazine HCl (Apresoline Inj) 10 mg 1X ONCE IVP 07/17/21 12:30 07/17/21 12:31 DC 07/17/21 12:26 Piperacillin Sod/ Tazobactam Sod 3.375 gm/Sodium Chloride 50 ml @ 100 mls/hr 1X ONCE IV 07/17/21 12:30 07/17/21 12:59 DC 07/17/21 12:52 Acetaminophen (Tylenol) 1,000 mg 1X ONCE PO 07/17/21 12:30 07/17/21 12:31 DC 07/17/21 12:53 Lorazepam (Ativan Inj) 0.5 mg 1X ONCE IVP 07/17/21 12:45 07/17/21 12:46 DC 07/17/21 12:53 Ketorolac Tromethamine (Toradol 15mg Vial) 15 mg 1X ONCE IVP 07/17/21 12:45 07/17/21 12:46 DC 07/17/21 12:52 Diazepam (Valium) 5 mg TID PO 07/17/21 21:00 07/18/21 09:05 Polyethylene Glycol (miraLAX PACKET) 17 gm DAILY PO 07/18/21 09:00 07/18/21 09:02 Sennosides (Senna) 8.6 mg BID PO 07/17/21 21:00 07/18/21 09:05 Citalopram Hydrobromide (CeleXA) 20 mg DAILY PO 07/18/21 09:00 07/18/21 09:05 Fluticasone Propionate (Flonase) 2 spray DAILY NS 07/18/21 09:00 07/18/21 09:01 Lisinopril (Prinivil) 20 mg DAILY PO 07/17/21 17:00 07/18/21 09:04 Hydrochlorothiazide (Hydrodiuril) 25 mg DAILY PO 07/17/21 17:00 07/18/21 09:03 Oxycodone HCl (Roxicodone) 10 mg PRN Q4HRS PRN PO PAIN 07/17/21 16:30 07/18/21 05:46 Oxycodone HCl (OxyCONTIN) 30 mg BID PO 07/17/21 16:45 07/18/21 09:05 Methylprednisolone Sodium Succinate (SOLU-Medrol 125MG VIAL) 125 mg 1X ONCE IV 07/17/21 17:00 07/17/21 17:01 DC 07/17/21 18:10 Albuterol/ Ipratropium (Duoneb) 3 ml RTQID NEB 07/17/21 20:00 07/17/21 20:32 Cyclobenzaprine HCl (Flexeril) 10 mg PRN TID PRN PO MUSCLE SPASMS 07/17/21 18:45 07/18/21 09:06 Nicotine (Nicoderm Cq 14mg) 1 patch DAILY TD 07/17/21 18:45 07/18/21 09:03 Ampicillin Sodium/ Sulbactam Sodium 3 gm/Sodium Chloride 100 ml @ 200 mls/hr Q6HRS IV 07/18/21 00:00 07/18/21 05:19 Azithromycin 500 mg/Sodium Chloride 250 ml @ 250 mls/hr Q24H IV 07/17/21 22:00 07/20/21 21:59 07/17/21 22:00 Albuterol/ Ipratropium (Duoneb) 3 ml 1X ONCE NEB 07/18/21 02:15 07/18/21 02:16 DC 07/18/21 08:40 Methylprednisolone Sodium Succinate (SOLU-Medrol 40MG VIAL) 40 mg Q8HRS IV 07/18/21 07:00 07/18/21 07:04 Justifications for Admission Other Justification STEPHANE HOANG III DO Jul 18, 2021 11:11
[2021-07-18] MEDS ORDERED: IOHEXOL 350 MG/ML 100 ML VIAL. IV ONE (12:15)
[2021-07-18] MEDS ORDERED: CONTRAST GIVEN. MC PRN (12:15)
--- NOTE | 2021-07-18 13:13 | RAD ---
CT angiography chest with contrast PQRS statement: CT scans at this facility use dose reduction including either automated exposure cont rol, iterative reconstructions, and /or weight based radiation dosing via mA and kV modification when appropriate to reduce radiation dose to as low as reasonably achievable. Contrast: 75 mL Omnipaque 350 intravenous contrast. 3-D MIP reconstructions of the arteries were acqu ired. HISTORY: Shortness of breath. History of DVT. COMPARISON: CT chest December 29, 2018. FINDINGS: Plaquing thoracic aorta. The heart size normal. Esophagus unremarkable. No adenopathy in th e chest. No pulmonary artery emboli. Right nephrectomy. 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 Centrilobular pulmonary emphysema. There is mild bronchial wall thickening lik yuval bronchitis. No pulmonary opacities or nodules. No pleural effusions. Bones are unremarkable. IMPRESSION: 1. No pulmonary artery emboli. 2. Bronchial wall thickening likely bronchitis. 3. Centrilobular pulmonary emphysema. Electronically signed by: Emil Flores MD (07/18/2021 1:11 PM) [id number]
--- NOTE | 2021-07-18 14:57 | RAD ---
US BILATERAL LOWEREXTREMITY VENOUS DOPPLER History: Reason: leg pain hx of dvt, TECH NOTIFY / Spl. Instructions: / History: Comparison: None. Technique: Multiple longitudinal and transverse high resolution real-time images of the venous system of bilateral lower extremity were obtained with color and Doppler sampling. Findings: The common femoral, superficial femoral, popliteal and proximal calf veins are all patent and demonst rate normal flow and compressibility. Normal respiratory phasicity and augmentation is present. Impression: 1. No evidence of deep vein thrombosis. Electronically signed by: John Andre DO (07/18/2021 2:54 PM) [facility]
[2021-07-18 15:00] VITALS: BP 105/63
[2021-07-18 19:00] VITALS: BP 134/69
[2021-07-18] MEDS: LACTOBACILLUS RHAMNOSUS GG 1 CAPSULE. PO SCH (20:18)
[2021-07-18] MEDS: ENOXAPARIN 40 MG/0.4 ML SYRINGE. SQ SCH (20:19)
[2021-07-18] MEDS: AZITHROMYCIN 500 MG in IV NORMAL SALINE 250ML 250 ML IV SCH (20:25)
[2021-07-18 23:00] VITALS: BP 126/61
[2021-07-19] MEDS: oxyCODONE IR 5 MG TABLET PO PRN ×3 (00:21→14:09)
[2021-07-19] MEDS: AMPICILLIN/SULBACTAM 3 GM in IV NORMAL SALINE 100ML 100 ML IV SCH ×4 (00:21→17:26)
[2021-07-19] MEDS: methylPREDNISolone SOD SUCC PF 40 MG/ML VIAL. IV SCH ×3 (05:09→22:15)
[2021-07-19 07:00] VITALS: BP 112/60
--- NOTE | 2021-07-19 07:20 | PDOC ---
PULMONARY PROGRESS NOTES DATE: 07/19/21 TIME: 07:18 Subjective feels slightly better has cough sob Vitals Vital Signs Date Time Temp Pulse Resp B/P (MAP) Pulse Ox O2 Delivery O2 Flow Rate FiO2 07/19/21 05:39 93 Room Air 07/18/21 23:00 98.0 66 20 126/61 (82) 98.0 ROS: No Nausea General: Alert, Oriented X4 HEENT: Other Lungs: Wheezing, Crackles Cardiovascular: S1, S2 Abdomen: Soft, Non-tender Extremities: No Edema Labs Laboratory Tests Test 07/17/21 11:58 07/17/21 12:02 07/17/21 12:05 07/17/21 13:39 White Blood Count 12.9 x10^3/uL (4.0-11.0) Red Blood Count 5.44 x10^6/uL (3.50-5.40) Hemoglobin 16.7 g/dL (12.0-15.5) Hematocrit 48.9 % (36.0-47.0) Mean Corpuscular Volume 90 fL (79-100) Mean Corpuscular Hemoglobin 31 pg (25-35) Mean Corpuscular Hemoglobin Concent 34 g/dL (31-37) Red Cell Distribution Width 14.4 % (11.5-14.5) Platelet Count 299 x10^3/uL (140-400) Neutrophils (%) (Auto) 67 % (31-73) Lymphocytes (%) (Auto) 21 % (24-48) Monocytes (%) (Auto) 10 % (0-9) Eosinophils (%) (Auto) 1 % (0-3) Basophils (%) (Auto) 1 % (0-3) Neutrophils # (Auto) 8.6 x10^3/uL (1.8-7.7) Lymphocytes # (Auto) 2.7 x10^3/uL (1.0-4.8) Monocytes # (Auto) 1.3 x10^3/uL (0.0-1.1) Eosinophils # (Auto) 0.2 x10^3/uL (0.0-0.7) Basophils # (Auto) 0.1 x10^3/uL (0.0-0.2) Sodium Level 139 mmol/L (136-145) Potassium Level 4.4 mmol/L (3.5-5.1) Chloride Level 100 mmol/L (98-107) Carbon Dioxide Level 30 mmol/L (21-32) Anion Gap 9 (6-14) Blood Urea Nitrogen 18 mg/dL (7-20) Creatinine 1.0 mg/dL (0.6-1.0) Estimated GFR (Cockcroft-Gault) 56.9 BUN/Creatinine Ratio 18 (6-20) Glucose Level 121 mg/dL (70-99) Lactic Acid Level 1.3 mmol/L (0.4-2.0) Calcium Level 9.3 mg/dL (8.5-10.1) Total Bilirubin 0.4 mg/dL (0.2-1.0) Aspartate Amino Transf (AST/SGOT) 39 U/L (15-37) Alanine Aminotransferase (ALT/SGPT) 82 U/L (14-59) Alkaline Phosphatase 198 U/L (46-116) Troponin I High Sensitivity < 4 ng/L (4-50) SS-Xuh-O-Type Natriuretic Peptide 68 pg/mL (0-124) Total Protein 8.2 g/dL (6.4-8.2) Albumin 3.5 g/dL (3.4-5.0) Albumin/Globulin Ratio 0.7 (1.0-1.7) SARS-CoV-2 RNA (LESLY) Negative (Negative) SARS-CoV-2 Antigen (Rapid) Negative (NEGATIVE) O2 Saturation 92 % (92-99) Arterial Blood pH 7.39 (7.35-7.45) Arterial Blood pCO2 at Patient Temp 47 mmHg (35-46) Arterial Blood pO2 at Patient Temp 62 mmHg (75-108) Arterial Blood HCO3 28 mmol/L (21-28) Arterial Blood Base Excess 2 mmol/L (-3-3) Oxyhemoglobin 88.3 % Methemoglobin 0.4 % (0.0-1.9) Carbon Monoxide, Quantitative 3.6 % (0.0-1.9) FiO2 21% Urine Collection Type Unknown Urine Color Yellow Urine Clarity Clear Urine pH 5.5 (<5.0-8.0) Urine Specific [place] 1.015 (1.000-1.030) Urine Protein 30 mg/dL (NEG-TRACE) Urine Glucose (UA) Negative mg/dL (NEG) Urine Ketones (Stick) Negative mg/dL (NEG) Urine Blood Negative (NEG) Urine Nitrite Negative (NEG) Urine Bilirubin Negative (NEG) Urine Urobilinogen Dipstick 0.2 mg/dL (0.2 mg/dL) Urine Leukocyte Esterase Negative (NEG) Urine RBC 0 /HPF (0-2) Urine WBC Occ /HPF (0-4) Urine Squamous Epithelial Cells Many /LPF Urine Bacteria Few /HPF (0-FEW) Medications Active Scripts Medications Dose Route/Sig Max Daily Dose Days Date Category Lisinopril-Hctz 20-25 Mg Tab (Lisinopril/Hydrochlorothiazide) 1 Each Tablet 1 Tab PO DAILY 07/17/21 Reported Diazepam 5 Mg Tablet 5 Mg PO TID 07/17/21 Reported Lidocaine 1 Each Adh..patch 1 Each TP DAILY 07/17/21 Reported Oxycontin (Oxycodone HCl) 30 Mg Tab.er.12h 1 Tab PO BID MDD 2 Tablet(s) 30 07/17/21 Reported Combivent Respimat Inhal (Ipratropium/Albuterol Sulfate) 4 Gm Aer.w.adap 2 Inh IH QID 07/17/21 Reported Oxycodone Hcl 5 Mg Capsule 10 Mg PO PRN Q4HRS PRN 01/02/19 Rx Promethazine Hcl 25 Mg Tablet 25 Mg PO PRN Q6HRS PRN 01/02/19 Rx Cyclobenzaprine Hcl 10 Mg Tablet 10 Mg PO TID PRN 01/02/19 Rx Senokot (Sennosides) 8.6 Mg Tablet 8.6 Mg PO BID 12/29/18 Reported Escitalopram Oxalate 10 Mg Tablet 10 Mg PO DAILY 12/29/18 Reported Miralax (Polyethylene Glycol 3350) 17 Gm Powd.pack 1 Packet PO DAILY 01/28/18 Reported Albuterol Sulfate Neb Soln (Albuterol Sulfate) 2.5 Mg/3 Ml Vial.neb 1 Vial NEB PRN Q4HRS PRN 01/27/18 Reported Flonase Allergy Relief (Fluticasone Propionate) 9.9 Ml [place].susp 2 Sprays NS DAILY 01/27/18 Reported Vitamin D3 (Cholecalciferol (Vitamin D3)) 5,000 Unit Tablet 1 Tab PO WEEKLY 01/27/18 Reported Comments reviewed cta 1. No pulmonary artery emboli. 2. Bronchial wall thickening likely bronchitis. 3. Centrilobular pulmonary emphysema. Impression . IMPRESSION: 1. Acute exacerbation of chronic obstructive pulmonary disease. 2. Acute bronchitis. 3. Obesity, snoring and excessive daytime sleepiness, suspect obstructive sleep apnea-hypopnea syndrome. 4. History of deep venous thrombosis. 5. History of right nephrectomy for kidney cancer. 6. Hypertension. Plan . PLAN AND RECOMMENDATIONS: 1. Continue not smoking. 2. bronchodilators. 3. cont Solu-Medrol 40 mg IV every 8 hours. stil wheezing 4. CT angiogram. reviewed no pe, Bronchial wall thickening likely bronchitis, Centrilobular pulmonary emphysema. 5. lower extremity venous Doppler. neg 6. Continue antibiotic. 7. Lovenox for DVT prophylaxis. 8. I have discussed obstructive sleep apnea-hypopnea syndrome. The importance of diagnosis and treatment if untreated increase cardiovascular and [employer]MENT[employer]ER morbidity or mortality. I do recommend a sleep study as an outpatient. discussed w GURWINDER Contreras MD Jul 19, 2021 07:20
[2021-07-19] MEDS: IPRATRPIUM/ALBUTEROL 0.5/2.5MG 3 ML NEBU. NEB SCH ×4 (08:23→21:09)
[2021-07-19] MEDS: LISINOPRIL 20 MG TABLET PO SCH (09:00)
[2021-07-19] MEDS: POLYETHYLENE GLYCOL 3350 17 GM PACKET. PO SCH (09:16)
[2021-07-19] MEDS: hydroCHLOROthiazide 25 MG TABLET PO SCH (09:16)
[2021-07-19] MEDS: NICOTINE 14MG PATCH. TD SCH (09:16)
[2021-07-19] MEDS: SENNOSIDES 8.6 MG TABLET PO SCH ×2 (09:16→22:13)
[2021-07-19] MEDS: LACTOBACILLUS RHAMNOSUS GG 1 CAPSULE. PO SCH ×2 (09:17→22:15)
[2021-07-19] MEDS: FLUTICASONE 50MCG/NASAL SPRAY 16GM BOTTLE. NS SCH (09:17)
[2021-07-19] MEDS: oxyCODONE ER 15 MG TAB.ER.12H PO SCH ×2 (09:17→22:14)
[2021-07-19] MEDS: diazePAM 5 MG TABLET PO SCH ×3 (09:17→22:14)
[2021-07-19] MEDS: CITALOPRAM 20 MG TABLET. PO SCH (09:17)
[2021-07-19] MEDS: CYCLOBENZAPRINE 10 MG TABLET. PO PRN ×3 (09:18→22:23)
[2021-07-19 11:00] VITALS: BP 125/68
--- NOTE | 2021-07-19 11:09 | PDOC ---
[facility] [facility] PROGRESS NOTE Date of Service DOS: DATE: 07/19/21 TIME: 11:07 Chief Complaint Chief Complaint Respiratory failure Pneumonia COPD History of nephrectomy Hypertension hyperlipidemia History of pancreatitis History of Present Illness History of Present Illness 07/19/2021 Patient seen and examined Discussed with RN Chart reviewed Patient still sounds very coarse and has a harsh cough 07/18/2021 Patient seen and examined She is resting with no apparent distress Discussed with RN Chart reviewed Vitals/I&O Vitals/I&O: Vital Signs Date Time Temp Pulse Resp B/P (MAP) Pulse Ox O2 Delivery O2 Flow Rate FiO2 07/19/21 09:17 93 Room Air 07/19/21 07:00 98.2 76 26 112/60 (77) 98.2 I & O 07/18/21 07/18/21 07/19/21 15:00 23:00 07:00 Intake Total 490 ml 2030 ml 680 ml Balance 490 ml 2030 ml 680 ml Physical Exam General: No acute distress Heart: Regular rate Lungs: Wheezing Abdomen: Normal bowel sounds Extremities: No cyanosis Skin: No rashes Assessment and Plan Assessmemt and Plan Problems Medical Problems: (1) COPD exacerbation Status: Acute (2) Person under investigation for COVID-19 Status: Acute Respiratory failure Pneumonia COPD History of nephrectomy Hypertension hyperlipidemia History of pancreatitis Overweight Plan IV steroids Breathing treatments Oxygen per nasal cannula IV antibiotics Home meds DVT prophylaxis Full code Per pulmonary recommendations please see the following and we certainly agree and appreciate their input; IMPRESSION: 1. Acute exacerbation of chronic obstructive pulmonary disease. 2. Acute bronchitis. 3. Obesity, snoring and excessive daytime sleepiness, suspect obstructive sleep apnea-hypopnea syndrome. 4. History of deep venous thrombosis. 5. History of right nephrectomy for kidney cancer. 6. Hypertension. PLAN AND RECOMMENDATIONS: 1. Continue not smoking. 2. Start bronchodilators. 3. Start Solu-Medrol 40 mg IV every [address] angiogram. reviewed no pe, Bronchial wall thickening likely bronchitis, Centrilobular pulmonary emphysema. 5. lower extremity venous Doppler. neg 6. Continue antibiotic. 7. Start Lovenox for DVT prophylaxis. 8. I have discussed obstructive sleep apnea-hypopnea syndrome. The importance of diagnosis and treatment if untreated increase cardiovascular and CIRCULAR SAWYER STONE morbidity or mortality. I do recommend a sleep study as an outpatient. Comment Review of Relevant I have reviewed the following items rodolfo (where applicable) has been applied. Medications: Current Medications Medications (Trade) Dose Ordered Sig/Naman Route PRN Reason Start Time Stop Time Status Last Admin Dose Admin Iohexol (Omnipaque 350 Mg/ml) 75 ml 1X ONCE IV 07/18/21 12:15 07/18/21 12:16 DC 07/18/21 11:58 Enoxaparin Sodium (Lovenox 40mg Syringe) 40 mg Q24H SQ 07/18/21 21:00 07/18/21 20:19 Lactobacillus Rhamnosus (Culturelle) 1 cap BID PO 07/18/21 21:00 07/19/21 09:17 Justifications for Admission Other Justification STEPHANE HOANG III DO Jul 19, 2021 11:09
[2021-07-19] MEDS: BENZONATATE 100 MG CAPSULE. PO SCH ×2 (14:00→22:14)
[2021-07-19 14:28] VITALS: BP 155/72
[2021-07-19 19:00] VITALS: BP 155/76
[2021-07-19] MEDS: ENOXAPARIN 40 MG/0.4 ML SYRINGE. SQ SCH (22:15)
[2021-07-19] MEDS: AZITHROMYCIN 500 MG in IV NORMAL SALINE 250ML 250 ML IV SCH (22:16)
[2021-07-19 23:00] VITALS: BP 135/70
[2021-07-20 03:00] VITALS: BP 157/66
[2021-07-20] MEDS: oxyCODONE IR 5 MG TABLET PO PRN ×3 (03:31→17:52)
[2021-07-20] MEDS: AMPICILLIN/SULBACTAM 3 GM in IV NORMAL SALINE 100ML 100 ML IV SCH ×4 (05:51→17:50)
[2021-07-20] MEDS: methylPREDNISolone SOD SUCC PF 40 MG/ML VIAL. IV SCH ×2 (05:52→08:48)
[2021-07-20 06:06] LABS: CALCIUM 8.5 mg/dL (8.5-10.1); CREATININE 1.2 mg/dL (0.6-1.0); GFR 46.1; POTASSIUM 4.5 mmol/L (3.5-5.1)
[2021-07-20 06:41] LABS: BASO % 0 % (0-3); EOS % 0 % (0-3); HEMATOCRIT 43.8 % (36.0-47.0); HEMOGLOBIN 14.5 g/dL (12.0-15.5); LYMPH # 1.1 x10^3/uL (1.0-4.8); LYMPH % 10 % (24-48); MEAN CORPUSCULAR HEMOGLOBIN 30 pg (25-35); MEAN CORPUSCULAR HGB CONC 33 g/dL (31-37); MEAN CORPUSCULAR VOLUME 91 fL (79-100); MONO # 0.3 x10^3/uL (0.0-1.1); MONO % 3 % (0-9); NEUT % 87 % (31-73); PLATELET COUNT 301 x10^3/uL (140-400); RED BLOOD COUNT 4.83 x10^6/uL (3.50-5.40); RED CELL DISTRIBUTION WIDTH 14.1 % (11.5-14.5); WHITE BLOOD COUNT 11.4 x10^3/uL (4.0-11.0)
[2021-07-20 07:00] VITALS: BP 150/82
[2021-07-20] MEDS: IPRATRPIUM/ALBUTEROL 0.5/2.5MG 3 ML NEBU. NEB SCH ×3 (07:35→20:33)
[2021-07-20] MEDS: POLYETHYLENE GLYCOL 3350 17 GM PACKET. PO SCH (08:48)
[2021-07-20] MEDS: SENNOSIDES 8.6 MG TABLET PO SCH ×2 (08:49→21:55)
[2021-07-20] MEDS: oxyCODONE ER 15 MG TAB.ER.12H PO SCH ×2 (08:49→21:55)
[2021-07-20] MEDS: hydroCHLOROthiazide 25 MG TABLET PO SCH (08:49)
[2021-07-20] MEDS: CITALOPRAM 20 MG TABLET. PO SCH (08:50)
[2021-07-20] MEDS: BENZONATATE 100 MG CAPSULE. PO SCH ×3 (08:50→21:55)
[2021-07-20] MEDS: LISINOPRIL 20 MG TABLET PO SCH (08:50)
[2021-07-20] MEDS: diazePAM 5 MG TABLET PO SCH ×3 (08:50→21:55)
[2021-07-20] MEDS: LACTOBACILLUS RHAMNOSUS GG 1 CAPSULE. PO SCH ×2 (08:50→21:55)
[2021-07-20] MEDS: CYCLOBENZAPRINE 10 MG TABLET. PO PRN ×3 (08:50→21:53)
[2021-07-20] MEDS: NICOTINE 14MG PATCH. TD SCH (08:51)
[2021-07-20] MEDS: FLUTICASONE 50MCG/NASAL SPRAY 16GM BOTTLE. NS SCH (08:53)
[2021-07-20 10:05] LABS: % LYMPHS 10 % (24-48); % MONOS 1 % (0-10); % SEGS 89 % (35-66); PLT ESTIMATE ADEQUATE (ADEQUATE)
--- NOTE | 2021-07-20 10:45 | PDOC ---
PULMONARY PROGRESS NOTES DATE: 07/20/21 TIME: 10:44 Subjective Patient is still wheezing. She has dyspnea with exertion. Vitals Vital Signs Date Time Temp Pulse Resp B/P (MAP) Pulse Ox O2 Delivery O2 Flow Rate FiO2 07/20/21 08:50 63 157/66 07/20/21 08:49 Room Air 07/20/21 07:35 92 07/20/21 07:00 97.9 20 97.9 ROS: No Nausea General: Alert, Oriented X4 HEENT: Other Lungs: Wheezing (Bilaterally) Cardiovascular: S1, S2 Abdomen: Soft, Non-tender Extremities: No Edema Labs Laboratory Tests Test 07/20/21 05:10 White Blood Count 11.4 x10^3/uL (4.0-11.0) Red Blood Count 4.83 x10^6/uL (3.50-5.40) Hemoglobin 14.5 g/dL (12.0-15.5) Hematocrit 43.8 % (36.0-47.0) Mean Corpuscular Volume 91 fL (79-100) Mean Corpuscular Hemoglobin 30 pg (25-35) Mean Corpuscular Hemoglobin Concent 33 g/dL (31-37) Red Cell Distribution Width 14.1 % (11.5-14.5) Platelet Count 301 x10^3/uL (140-400) Neutrophils (%) (Auto) 87 % (31-73) Lymphocytes (%) (Auto) 10 % (24-48) Monocytes (%) (Auto) 3 % (0-9) Eosinophils (%) (Auto) 0 % (0-3) Basophils (%) (Auto) 0 % (0-3) Neutrophils # (Auto) 10.0 x10^3/uL (1.8-7.7) Lymphocytes # (Auto) 1.1 x10^3/uL (1.0-4.8) Monocytes # (Auto) 0.3 x10^3/uL (0.0-1.1) Eosinophils # (Auto) 0.0 x10^3/uL (0.0-0.7) Basophils # (Auto) 0.0 x10^3/uL (0.0-0.2) Segmented Neutrophils % 89 % (35-66) Lymphocytes % 10 % (24-48) Monocytes % 1 % (0-10) Platelet Estimate Adequate (ADEQUATE) Sodium Level 138 mmol/L (136-145) Potassium Level 4.5 mmol/L (3.5-5.1) Chloride Level 103 mmol/L (98-107) Carbon Dioxide Level 32 mmol/L (21-32) Anion Gap 3 (6-14) Blood Urea Nitrogen 21 mg/dL (7-20) Creatinine 1.2 mg/dL (0.6-1.0) Estimated GFR (Cockcroft-Gault) 46.1 Glucose Level 161 mg/dL (70-99) Calcium Level 8.5 mg/dL (8.5-10.1) KV-Oom-V-Type Natriuretic Peptide 1261 pg/mL (0-124) Laboratory Tests Test 07/20/21 05:10 White Blood Count 11.4 x10^3/uL (4.0-11.0) Red Blood Count 4.83 x10^6/uL (3.50-5.40) Hemoglobin 14.5 g/dL (12.0-15.5) Hematocrit 43.8 % (36.0-47.0) Mean Corpuscular Volume 91 fL (79-100) Mean Corpuscular Hemoglobin 30 pg (25-35) Mean Corpuscular Hemoglobin Concent 33 g/dL (31-37) Red Cell Distribution Width 14.1 % (11.5-14.5) Platelet Count 301 x10^3/uL (140-400) Neutrophils (%) (Auto) 87 % (31-73) Lymphocytes (%) (Auto) 10 % (24-48) Monocytes (%) (Auto) 3 % (0-9) Eosinophils (%) (Auto) 0 % (0-3) Basophils (%) (Auto) 0 % (0-3) Neutrophils # (Auto) 10.0 x10^3/uL (1.8-7.7) Lymphocytes # (Auto) 1.1 x10^3/uL (1.0-4.8) Monocytes # (Auto) 0.3 x10^3/uL (0.0-1.1) Eosinophils # (Auto) 0.0 x10^3/uL (0.0-0.7) Basophils # (Auto) 0.0 x10^3/uL (0.0-0.2) Segmented Neutrophils % 89 % (35-66) Lymphocytes % 10 % (24-48) Monocytes % 1 % (0-10) Platelet Estimate Adequate (ADEQUATE) Sodium Level 138 mmol/L (136-145) Potassium Level 4.5 mmol/L (3.5-5.1) Chloride Level 103 mmol/L (98-107) Carbon Dioxide Level 32 mmol/L (21-32) Anion Gap 3 (6-14) Blood Urea Nitrogen 21 mg/dL (7-20) Creatinine 1.2 mg/dL (0.6-1.0) Estimated GFR (Cockcroft-Gault) 46.1 Glucose Level 161 mg/dL (70-99) Calcium Level 8.5 mg/dL (8.5-10.1) DM-Zep-Q-Type Natriuretic Peptide 1261 pg/mL (0-124) Medications Active Scripts Medications Dose Route/Sig Max Daily Dose Days Date Category Lisinopril-Hctz 20-25 Mg Tab (Lisinopril/Hydrochlorothiazide) 1 Each Tablet 1 Tab PO DAILY 07/17/21 Reported Diazepam 5 Mg Tablet 5 Mg PO TID 07/17/21 Reported Lidocaine 1 Each Adh..patch 1 Each TP DAILY 07/17/21 Reported Oxycontin (Oxycodone HCl) 30 Mg Tab.er.12h 1 Tab PO BID MDD 2 Tablet(s) 30 07/17/21 Reported Combivent Respimat Inhal (Ipratropium/Albuterol Sulfate) 4 Gm Aer.w.adap 2 Inh IH QID 07/17/21 Reported Oxycodone Hcl 5 Mg Capsule 10 Mg PO PRN Q4HRS PRN 01/02/19 Rx Promethazine Hcl 25 Mg Tablet 25 Mg PO PRN Q6HRS PRN 01/02/19 Rx Cyclobenzaprine Hcl 10 Mg Tablet 10 Mg PO TID PRN 01/02/19 Rx Senokot (Sennosides) 8.6 Mg Tablet 8.6 Mg PO BID 12/29/18 Reported Escitalopram Oxalate 10 Mg Tablet 10 Mg PO DAILY 12/29/18 Reported Miralax (Polyethylene Glycol 3350) 17 Gm Powd.pack 1 Packet PO DAILY 01/28/18 Reported Albuterol Sulfate Neb Soln (Albuterol Sulfate) 2.5 Mg/3 Ml Vial.neb 1 Vial NEB PRN Q4HRS PRN 01/27/18 Reported Flonase Allergy Relief (Fluticasone Propionate) 9.9 Ml [place].susp 2 Sprays NS DAILY 01/27/18 Reported Vitamin D3 (Cholecalciferol (Vitamin D3)) 5,000 Unit Tablet 1 Tab PO WEEKLY 01/27/18 Reported Comments reviewed cta 1. No pulmonary artery emboli. 2. Bronchial wall thickening likely bronchitis. 3. Centrilobular pulmonary emphysema. Impression . IMPRESSION: 1. Acute exacerbation of chronic obstructive pulmonary disease/persistent bronchospasm. 2. Acute bronchitis. 3. Obesity, snoring and excessive daytime sleepiness, suspect obstructive sleep apnea-hypopnea syndrome. 4. History of deep venous thrombosis. 5. History of right nephrectomy for kidney cancer. 6. Hypertension. Plan . PLAN AND RECOMMENDATIONS: 1. Continue not smoking. 2. bronchodilators. 3. We will increase the dose of Solu-Medrol to 60 mg IV every 6 hours. We will also increase the duration of nebulizer treatment every 4 hours. Continue with the steroid inhaler as well 4. CT angiogram. reviewed no pe, Bronchial wall thickening likely bronchitis, Centrilobular pulmonary emphysema. 5. lower extremity venous Doppler. neg 6. Continue antibiotic. 7. Lovenox for DVT prophylaxis. 8. I have discussed obstructive sleep apnea-hypopnea syndrome. The importance of diagnosis and treatment if untreated increase cardiovascular and ASSISTANT IN NURSING morbidity or mortality. I do recommend a sleep study as an outpatient. discussed w ESPERANZA Lau MD Jul 20, 2021 10:45
[2021-07-20 11:00] VITALS: BP 120/87
--- NOTE | 2021-07-20 11:20 | NUR ---
SW following. Discussed with RN, pt from home, room air, cardiac diet. COVID-19 negative - however some discussion about potentially reswabbing. Pt has had one dose of the COVID vaccine. Dr. Drake planning on consulting Cardiology. RN advised no SW needs at this time. SW will continue to follow.
--- NOTE | 2021-07-20 11:37 | PDOC2 ---
RICH CHAVEZ GREENHOUSE ASSISTANT 07/20/21 1137: CARDIAC CONSULT DATE OF CONSULT Date of Consult DATE: 07/20/21 TIME: 11:30 REASON FOR CONSULT Reason for Consult: Elevated BNP REFERRING PHYSICIAN Referring Physician: Dr. Drake SOURCE Source: Chart review, Patient HISTORY OF PRESENT ILLNESS HISTORY OF PRESENT ILLNESS This is a 60 yo female who presented secondary to shortness of breath. Patient reports experiencing cold, congestion, sinus infection, cough productive of yellow sputum for the last 2 weeks. Over the last 2 days, has become more short of breath. Has been using her inhaler and breathing treatments more frequently without relief. Has felt more weak than usual. Has received her first COVID vaccine recently. No chest pain, palpitations, dizziness, diaphoresis, or nausea/vomiting. Does have a history of COPD with continued tobaccoism. NT Pro BNP mildly elevated, which prompted this consult. PAST MEDICAL HISTORY Past Medical History Cardiovascular: HTN Pulmonary: COPD CENTRAL NERVOUS SYSTEM: Periperal neuropathy GI: GERD, Other (pancreatitis ) Heme/Onc: Cancer (kidney ), Other (DVT) Psych: Anxiety, Depression Musculoskeletal: Osteoarthritis, Other (DDD) Rheumatologic: Fibromyalgia Infectious disease: No pertinent hx ENT: No pertinent hx Renal/: No pertinent hx Endocrine: No pertinent hx Dermatology: No pertinent hx PAST SURGICAL HISTORY Past Surgical History Hysterectomy, Other (right nephrectomy ) FAMILY HISTORY Family History: Heart Disease SOCIAL HISTORY Social History Smoke: 1ppd ALCOHOL: none Drugs: Marijuana Lives: Alone CURRENT MEDICATIONS CURRENT MEDICATIONS Current Medications Medications (Trade) Dose Ordered Sig/Naman Route PRN Reason Start Time Stop Time Status Last Admin Dose Admin Benzonatate (Tessalon Perle) 100 mg [id number] PO 07/19/21 14:00 07/20/21 08:50 Albuterol/ Ipratropium (Duoneb) 3 ml Q4HRS NEB 07/20/21 12:00 07/20/21 11:23 ALLERGIES ALLERGIES: Coded Allergies: adhesive tape (Verified Allergy, Intermediate, rash on the site of application, 01/01/19) codeine (Verified Allergy, Intermediate, hives, 02/27/15) fentanyl (Verified Allergy, Intermediate, Nausea and Vomiting, 02/27/15) hives morphine (Verified Adverse Reaction, Intermediate, vomiting, 02/27/15) ROS Review of System 14 point ROS conducted with pertinent positives noted above in hPi PHYSICAL EXAM PHYSICAL EXAM General: Alert, Oriented X3, Cooperative, No acute distress HEENT: Atraumatic Lungs: diminished Heart: Regular rate, Normal S1, Normal S2 Abdomen: Soft, No tenderness Extremities: No edema, Normal pulses Skin: No breakdown, No significant lesion Neuro: Normal speech, Sensation intact Psych/Mental Status: anxious MUSCULOSKELETAL: No deformity VITALS/I&O VITALS/I&O: Vital Signs Date Time Temp Pulse Resp B/P (MAP) Pulse Ox O2 Delivery O2 Flow Rate FiO2 07/20/21 11:24 91 Room Air 07/20/21 08:50 63 157/66 07/20/21 07:00 97.9 20 97.9 I & O 07/19/21 07/19/21 07/20/21 15:00 23:00 07:00 Intake Total 440 ml 500 ml 500 ml Output Total 400 ml Balance 440 ml 500 ml 100 ml LABS Lab: Laboratory Tests Test 07/20/21 05:10 White Blood Count 11.4 x10^3/uL (4.0-11.0) H Red Blood Count 4.83 x10^6/uL (3.50-5.40) Hemoglobin 14.5 g/dL (12.0-15.5) Hematocrit 43.8 % (36.0-47.0) Mean Corpuscular Volume 91 fL (79-100) Mean Corpuscular Hemoglobin 30 pg (25-35) Mean Corpuscular Hemoglobin Concent 33 g/dL (31-37) Red Cell Distribution Width 14.1 % (11.5-14.5) Platelet Count 301 x10^3/uL (140-400) Neutrophils (%) (Auto) 87 % (31-73) H Lymphocytes (%) (Auto) 10 % (24-48) L Monocytes (%) (Auto) 3 % (0-9) Eosinophils (%) (Auto) 0 % (0-3) Basophils (%) (Auto) 0 % (0-3) Neutrophils # (Auto) 10.0 x10^3/uL (1.8-7.7) H Lymphocytes # (Auto) 1.1 x10^3/uL (1.0-4.8) Monocytes # (Auto) 0.3 x10^3/uL (0.0-1.1) Eosinophils # (Auto) 0.0 x10^3/uL (0.0-0.7) Basophils # (Auto) 0.0 x10^3/uL (0.0-0.2) Segmented Neutrophils % 89 % (35-66) H Lymphocytes % 10 % (24-48) L Monocytes % 1 % (0-10) Platelet Estimate Adequate (ADEQUATE) Sodium Level 138 mmol/L (136-145) Potassium Level 4.5 mmol/L (3.5-5.1) Chloride Level 103 mmol/L (98-107) Carbon Dioxide Level 32 mmol/L (21-32) Anion Gap 3 (6-14) L Blood Urea Nitrogen 21 mg/dL (7-20) H Creatinine 1.2 mg/dL (0.6-1.0) H Estimated GFR (Cockcroft-Gault) 46.1 Glucose Level 161 mg/dL (70-99) H Calcium Level 8.5 mg/dL (8.5-10.1) PM-Upk-G-Type Natriuretic Peptide 1261 pg/mL (0-124) H Laboratory Tests 07/20/21 05:10 Laboratory Tests 07/20/21 05:10 ECHOCARDIOGRAM ECHOCARDIOGRAM <Conclusion> The left ventricular systolic function is normal and the ejection fraction is within normal range. The Ejection Fraction is 55-60%. Transmitral Doppler flow pattern is Grade I-abnormal relaxation pattern. The left atrium size is normal. The right atrium size is normal. The aortic valve is normal in structure and function. Doppler and Color-flow revealed trace mitral regurgitation. Doppler and Color Flow revealed physiological tricuspid regurgitation. There is mild pulmonary hypertension. The PA pressure was estimated at 31 mmHg. The pulmonic valve is not well visualized. There is no evidence of significant pericardial effusion. DATE: 01/31/181732 <Conclusion> The left ventricular systolic function is normal and the ejection fraction is within normal range. The Ejection Fraction is 50-55%. There is normal LV segmental wall motion. Technically limited study due to COPD and patient compliance. DATE: 12/30/18 142 ASSESSMENT/PLAN ASSESSMENT/PLAN 1. Acute on chronic respiratory failure secondary to AECOPD, bronchitis. NT Pro BNP mildly elevated, but CT chest/CXR without evidence of pulmonary edema. Doubt overt HF 2. Hypertension; controlled overall 3. Chronic pain/fibromyalgia 4. Right renal CA s/p nephrectomy. 5. Tobaccoism; discussed/encouraged cessation 6. Elevated LFTs 7. PUI; COVID negative Recommendations Patient anxious, requesting further evaluation of the heart Will obtain echocardiogram Ongoing lung optimization Supportive care SRIDHAR HERNANDEZ MD 07/21/21 1256: CARDIAC CONSULT ASSESSMENT/PLAN ASSESSMENT/PLAN Late entry for 07/20/2021 Patient seen and examined. Agree with above nurse practitioner note. RICH CHAVEZ APRN Jul 20, 2021 11:37 SRIDHAR HERNANDEZ MD Jul 21, 2021 12:56
--- NOTE | 2021-07-20 11:45 | PDOC ---
[employer] PROGRESS NOTE Date of Service DOS: DATE: 07/20/21 TIME: 11:45 Chief Complaint Chief Complaint Respiratory failure Pneumonia COPD History of nephrectomy Hypertension hyperlipidemia History of pancreatitis History of Present Illness History of Present Illness 07/20/2021 Patient seen and examined Discussed with RN Chart reviewed Discussed with case management Her symptoms seem to be resistant so far She still has a lot of coughing and shortness of breath and wheezing Her BNP level was high at greater than 1200 We will consult cardiology for second opinion 07/19/2021 Patient seen and examined Discussed with RN Chart reviewed Patient still sounds very coarse and has a harsh cough 07/18/2021 Patient seen and examined She is resting with no apparent distress Discussed with RN Chart reviewed Vitals/I&O Vitals/I&O: Vital Signs Date Time Temp Pulse Resp B/P (MAP) Pulse Ox O2 Delivery O2 Flow Rate FiO2 07/20/21 11:24 91 Room Air 07/20/21 08:50 63 157/66 07/20/21 07:00 97.9 20 97.9 I & O 07/19/21 07/19/21 07/20/21 15:00 23:00 07:00 Intake Total 440 ml 500 ml 500 ml Output Total 400 ml Balance 440 ml 500 ml 100 ml Physical Exam General: moderate distress Heart: Regular rate Lungs: Wheezing (Bilaterally) Abdomen: Normal bowel sounds Extremities: No cyanosis Skin: No rashes Labs Labs: Laboratory Tests Test 07/20/21 05:10 White Blood Count 11.4 x10^3/uL (4.0-11.0) Red Blood Count 4.83 x10^6/uL (3.50-5.40) Hemoglobin 14.5 g/dL (12.0-15.5) Hematocrit 43.8 % (36.0-47.0) Mean Corpuscular Volume 91 fL (79-100) Mean Corpuscular Hemoglobin 30 pg (25-35) Mean Corpuscular Hemoglobin Concent 33 g/dL (31-37) Red Cell Distribution Width 14.1 % (11.5-14.5) Platelet Count 301 x10^3/uL (140-400) Neutrophils (%) (Auto) 87 % (31-73) Lymphocytes (%) (Auto) 10 % (24-48) Monocytes (%) (Auto) 3 % (0-9) Eosinophils (%) (Auto) 0 % (0-3) Basophils (%) (Auto) 0 % (0-3) Neutrophils # (Auto) 10.0 x10^3/uL (1.8-7.7) Lymphocytes # (Auto) 1.1 x10^3/uL (1.0-4.8) Monocytes # (Auto) 0.3 x10^3/uL (0.0-1.1) Eosinophils # (Auto) 0.0 x10^3/uL (0.0-0.7) Basophils # (Auto) 0.0 x10^3/uL (0.0-0.2) Segmented Neutrophils % 89 % (35-66) Lymphocytes % 10 % (24-48) Monocytes % 1 % (0-10) Platelet Estimate Adequate (ADEQUATE) Sodium Level 138 mmol/L (136-145) Potassium Level 4.5 mmol/L (3.5-5.1) Chloride Level 103 mmol/L (98-107) Carbon Dioxide Level 32 mmol/L (21-32) Anion Gap 3 (6-14) Blood Urea Nitrogen 21 mg/dL (7-20) Creatinine 1.2 mg/dL (0.6-1.0) Estimated GFR (Cockcroft-Gault) 46.1 Glucose Level 161 mg/dL (70-99) Calcium Level 8.5 mg/dL (8.5-10.1) LW-Ojm-J-Type Natriuretic Peptide 1261 pg/mL (0-124) Assessment and Plan Assessmemt and Plan Problems Medical Problems: (1) COPD exacerbation Status: Acute (2) Person under investigation for COVID-19 Status: Acu Respiratory failure Pneumonia COPD Elevated BNP History of nephrectomy Hypertension hyperlipidemia History of pancreatitis Overweight Plan IV steroids Breathing treatments Oxygen per nasal cannula IV antibiotics Tessalon Perles/Robitussin for cough Home meds We will consult cardiology as her BNP level is high DVT prophylaxis Full code Appreciate subspecialist input Per pulmonary recommendations please see the following and we certainly agree; 1. Continue not smoking. 2. bronchodilators. 3. We will increase the dose of Solu-Medrol to 60 mg IV every 6 hours. We will also increase the duration of nebulizer treatment every 4 hours. Continue with the steroid inhaler as well 4. CT angiogram. reviewed no pe, Bronchial wall thickening likely bronchitis, Centrilobular pulmonary emphysema. 5. lower extremity venous Doppler. neg 6. Continue antibiotic. 7. Lovenox for DVT prophylaxis. 8. I have discussed obstructive sleep apnea-hypopnea syndrome. 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 I do recommend a sleep study as an outpatient. Comment Review of Relevant I have reviewed the following items rodolfo (where applicable) has been applied. Medications: Current Medications Medications (Trade) Dose Ordered Sig/Naman Route PRN Reason Start Time Stop Time Status Last Admin Dose Admin Benzonatate (Tessalon Perle) 100 mg [id number] PO 07/19/21 14:00 07/20/21 08:50 Albuterol/ Ipratropium (Duoneb) 3 ml Q4HRS NEB 07/20/21 12:00 07/20/21 11:23 Justifications for Admission Other Justification STEPHANE HOANG III DO Jul 20, 2021 11:45
[2021-07-20] MEDS: methylPREDNISolone SOD SUCC PF 125 MG/2 ML VIAL. IV SCH ×2 (12:53→21:54)
[2021-07-20] MEDS: guaiFENesin DM 200MG/20MG 10 ML SYRUP PO PRN ×2 (12:59→17:51)
[2021-07-20 15:00] VITALS: BP 166/70
--- NOTE | 2021-07-20 17:41 | CARD ---
MR#: [id number] Date of Study: 07/20/2021 Ordering Physician: RICH CHAVEZ, Referring Physician: RICH CHAVEZ, Sang: Shaan Emanuel [facility] APPROVED REPORT EXAM: Two-dimensional and M-mode echocardiogram with Doppler and color Doppler. Other Information Quality : AverageHR: 57bpm Rhythm : NSR INDICATION Elevated BNP RISK FACTORS Hypertension Smoking COPD, Polysubstance abuse. 2D DIMENSIONS Left Atrium(2D)3.5 (1.6-4.0cm)IVSd0.7 (0.7-1.1cm) Aortic Root(2D)3.4 (2.0-3.7cm)LVDd4.6 (3.9-5.9cm) LVOT Diameter1.8 (1.8-2.4cm)PWd0.7 (0.7-1.1cm) LVDs3.1 (2.5-4.0cm)FS (%) 32.1 % SV59.4 ml Aortic Valve AoV Peak Edgar.103.4cm/sAoV VTI21.9cm AO Peak GR.4.3mmHgLVOT Peak Edgar.101.3cm/s AO Mean GR.2mmHgAVA (VMAX)2.41cm2 Mitral Valve MV E Wgibdtnj32.0cm/sMV E Peak Gr.6mmHg MV DECEL [id number] A Eibubtps98.1cm/s MV E Mean Gr.1mmHgE/A Ratio1.6 Pulmonary Valve PV Peak Qkpjzgnn20.0cm/s Tricuspid Valve TR P. Vlnrtdmw907de/sTR Peak Gr.22mmHg Pulmonary Vein S1 Fmaufplf37.2cm/sD2 Mgmzrgaq23.7cm/s LEFT VENTRICLE The left ventricle is normal size. There is normal left ventricular wall thickness. The left ventricu lar systolic function is normal and the ejection fraction is within normal range. LV ejection fractio n is 55 to 60%. There is normal LV segmental wall motion. No left ventricle thrombus noted on this st udy. There is no ventricular septal defect visualized. There is no left ventricular aneurysm. There i s no mass noted in the left ventricle. RIGHT VENTRICLE The right ventricle is normal size. There is normal right ventricular wall thickness. The right ventr icular systolic function is normal. ATRIA The left atrium size is normal. The right atrium size is normal. The interatrial septum is intact wit h no evidence for an atrial septal defect or patent foramen ovale as noted on 2-D or Doppler imaging. AORTIC VALVE The aortic valve is normal in structure and function. Doppler and Color Flow revealed no significant aortic regurgitation. There is no significant aortic valvular stenosis. There is no aortic valvular v egetation. MITRAL VALVE The mitral valve is normal in structure and function. There is no evidence of mitral valve prolapse. There is no mitral valve stenosis. Doppler and Color-flow revealed trace mitral regurgitation. TRICUSPID VALVE The tricuspid valve is normal in structure and function. Doppler and Color Flow revealed trace tricus pid valve regurgitation. The PA pressure was estimated at 27 mmHg. There is no tricuspid valve prolap se or vegetation. There is no tricuspid valve stenosis. PULMONIC VALVE The pulmonary valve is normal in structure and function. Doppler and Color Flow revealed no pulmonic valvular regurgitation. There is no pulmonic valvular stenosis. GREAT VESSELS The aortic root is normal in size. The ascending aorta is normal in size. The IVC is normal in size a nd collapses >50% with inspiration. PERICARDIAL EFFUSION There is no pleural effusion. There is no evidence of significant pericardial effusion. Critical Notification Critical Value: No <Conclusion> The left ventricle is normal size. The left ventricular systolic function is normal and the ejection fraction is within normal range. LV ejection fraction is 55 to 60%. There is normal LV segmental wall motion. Doppler and Color Flow revealed no significant aortic regurgitation. There is no significant aortic valvular stenosis. Doppler and Color-flow revealed trace mitral regurgitation. Doppler and Color Flow revealed trace tricuspid valve regurgitation. The PA pressure was estimated at 27 mmHg. Signed by : Armando Dorman MD Electronically Approved : 07/20/2021 17:41:16
[2021-07-20 19:00] VITALS: BP 160/74
[2021-07-20] MEDS: ENOXAPARIN 40 MG/0.4 ML SYRINGE. SQ SCH (21:53)
[2021-07-20 23:00] VITALS: BP 153/73
[2021-07-21] MEDS: methylPREDNISolone SOD SUCC PF 125 MG/2 ML VIAL. IV SCH ×4 (01:13→17:10)
[2021-07-21] MEDS: AMPICILLIN/SULBACTAM 3 GM in IV NORMAL SALINE 100ML 100 ML IV SCH ×4 (01:15→17:11)
[2021-07-21] MEDS: oxyCODONE IR 5 MG TABLET PO PRN ×4 (02:20→17:21)
[2021-07-21] MEDS: guaiFENesin DM 200MG/20MG 10 ML SYRUP PO PRN ×4 (02:23→21:27)
[2021-07-21 03:00] VITALS: BP 148/67
[2021-07-21 06:46] LABS: BASO % 0 % (0-3); EOS % 0 % (0-3); HEMOGLOBIN 14.4 g/dL (12.0-15.5); LYMPH # 1.1 x10^3/uL (1.0-4.8); LYMPH % 9 % (24-48); MEAN CORPUSCULAR HEMOGLOBIN 30 pg (25-35); MEAN CORPUSCULAR HGB CONC 33 g/dL (31-37); MEAN CORPUSCULAR VOLUME 91 fL (79-100); MONO # 0.7 x10^3/uL (0.0-1.1); MONO % 5 % (0-9); NEUT # 11.3 x10^3/uL (1.8-7.7); NEUT % 86 % (31-73); PLATELET COUNT 307 x10^3/uL (140-400); RED BLOOD COUNT 4.85 x10^6/uL (3.50-5.40); RED CELL DISTRIBUTION WIDTH 14.3 % (11.5-14.5); WHITE BLOOD COUNT 13.1 x10^3/uL (4.0-11.0)
[2021-07-21 07:00] VITALS: BP 177/78
[2021-07-21] MEDS: IPRATRPIUM/ALBUTEROL 0.5/2.5MG 3 ML NEBU. NEB SCH ×4 (07:52→20:00)
[2021-07-21] MEDS: oxyCODONE ER 15 MG TAB.ER.12H PO SCH ×2 (09:20→21:28)
[2021-07-21] MEDS: FLUTICASONE 50MCG/NASAL SPRAY 16GM BOTTLE. NS SCH (09:21)
[2021-07-21] MEDS: POLYETHYLENE GLYCOL 3350 17 GM PACKET. PO SCH (09:21)
[2021-07-21] MEDS: LACTOBACILLUS RHAMNOSUS GG 1 CAPSULE. PO SCH ×2 (09:21→21:27)
[2021-07-21] MEDS: diazePAM 5 MG TABLET PO SCH ×3 (09:21→21:28)
[2021-07-21] MEDS: SENNOSIDES 8.6 MG TABLET PO SCH ×2 (09:21→21:27)
[2021-07-21] MEDS: BENZONATATE 100 MG CAPSULE. PO SCH ×3 (09:22→21:28)
[2021-07-21] MEDS: LISINOPRIL 20 MG TABLET PO SCH (09:22)
[2021-07-21] MEDS: hydroCHLOROthiazide 25 MG TABLET PO SCH (09:22)
[2021-07-21] MEDS: NICOTINE 14MG PATCH. TD SCH (09:22)
[2021-07-21] MEDS: CYCLOBENZAPRINE 10 MG TABLET. PO PRN ×3 (09:22→21:27)
[2021-07-21] MEDS: CITALOPRAM 20 MG TABLET. PO SCH (09:22)
[2021-07-21 11:00] VITALS: BP 170/69
--- NOTE | 2021-07-21 11:25 | PDOC ---
RICH CHAVEZ MILDRED 07/21/21 1125: CARDIO Progress Notes Date and Time Date of Service 07/21/21 Time of Evaluation 1120 Subjective Subjective: No Chest Pain, No Palpitations, No Dizziness, Other (SOA better) Vitals Vitals Vital Signs Date Time Temp Pulse Resp B/P (MAP) Pulse Ox O2 Delivery O2 Flow Rate FiO2 07/21/21 09:22 50 177/78 07/21/21 09:20 Room Air 07/21/21 07:52 92 07/21/21 07:00 97.7 20 97.7 Weight Weight [ ] Input and Output Intake and Output Intake and Output 07/21/21 07:00 Intake Total 2130 ml Balance 2130 ml Intake Oral 1040 ml Blood Product IV Normal Saline Flush 1090 ml # Voids 5 # Bowel Movements 1 Laboratory Labs Laboratory Tests Test 07/21/21 05:40 White Blood Count 13.1 x10^3/uL (4.0-11.0) Red Blood Count 4.85 x10^6/uL (3.50-5.40) Hemoglobin 14.4 g/dL (12.0-15.5) Hematocrit 44.0 % (36.0-47.0) Mean Corpuscular Volume 91 fL (79-100) Mean Corpuscular Hemoglobin 30 pg (25-35) Mean Corpuscular Hemoglobin Concent 33 g/dL (31-37) Red Cell Distribution Width 14.3 % (11.5-14.5) Platelet Count 307 x10^3/uL (140-400) Neutrophils (%) (Auto) 86 % (31-73) Lymphocytes (%) (Auto) 9 % (24-48) Monocytes (%) (Auto) 5 % (0-9) Eosinophils (%) (Auto) 0 % (0-3) Basophils (%) (Auto) 0 % (0-3) Neutrophils # (Auto) 11.3 x10^3/uL (1.8-7.7) Lymphocytes # (Auto) 1.1 x10^3/uL (1.0-4.8) Monocytes # (Auto) 0.7 x10^3/uL (0.0-1.1) Eosinophils # (Auto) 0.0 x10^3/uL (0.0-0.7) Basophils # (Auto) 0.0 x10^3/uL (0.0-0.2) Microbiology Micro Microbiology 07/17/21 Blood Culture - Preliminary, Resulted NO GROWTH AFTER 3 DAYS Physical Exam Chest: Symmetric LUNGS: Other (diminished ) Heart: RRR Abdomen: Soft N/T Extremities: No Edema Neurology: alert, oriented, follow commands Assessment Assessment 1. Acute on chronic respiratory failure secondary to AECOPD, bronchitis. NT Pro BNP mildly elevated, but CT chest/CXR without evidence of pulmonary edema. Doubt overt HF. Echo with preserved LV systolic function 2. Hypertension; controlled overall 3. Chronic pain/fibromyalgia 4. Right renal CA s/p nephrectomy. 5. Tobaccoism; discussed/encouraged cessation 6. Elevated LFTs 7. PUI; COVID negative Recommendations Ongoing lung optimization Supportive care from a CV standpoint Justicifation of Admission Dx: Justifications for Admission: Justification of Admission Dx: Yes Comments: acute on chronic respiratory failure, AE COPD SRIDHAR HERNANDEZ MD 07/22/21 0619: CARDIO Progress Notes Plan Plan Late entry for 07/21/21 Pt. seen and examined. 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 RICH CHAVEZ APRN Jul 21, 2021 11:25 SRIDHAR HERNANDEZ MD Jul 22, 2021 06:19
--- NOTE | 2021-07-21 13:16 | PDOC ---
[facility] [facility] PROGRESS NOTE Date of Service DOS: DATE: 07/21/21 TIME: 13:15 Chief Complaint Chief Complaint Respiratory failure Pneumonia COPD History of nephrectomy Hypertension hyperlipidemia History of pancreatitis History of Present Illness History of Present Illness 07/21/2021 Patient seen and examined She seems to have finally started to improve Her voice is very deep and coarse and raspy I suspect she has been smoking more than she states She wants to quit smoking Discussed with RN Chart reviewed Seen by cardiology yesterday we certainly appreciate their input (occult CHF ruled out) 07/20/2021 Patient seen and examined Discussed with RN Chart reviewed Discussed with case management Her symptoms seem to be resistant so far She still has a lot of coughing and shortness of breath and wheezing Her BNP level was high at greater than 1200 We will consult cardiology for second opinion 07/19/2021 Patient seen and examined Discussed with RN Chart reviewed Patient still sounds very coarse and has a harsh cough 07/18/2021 Patient seen and examined She is resting with no apparent distress Discussed with RN Chart reviewed Vitals/I&O Vitals/I&O: Vital Signs Date Time Temp Pulse Resp B/P (MAP) Pulse Ox O2 Delivery O2 Flow Rate FiO2 07/21/21 12:03 90 Room Air 07/21/21 11:00 98.3 64 20 170/69 (102) 98.3 I & O 07/20/21 07/20/21 07/21/21 15:00 23:00 07:00 Intake Total 440 ml 1690 ml Balance 440 ml 1690 ml Physical Exam General: moderate distress Heart: Regular rate Lungs: Wheezing (Bilaterally) Abdomen: Normal bowel sounds Extremities: No cyanosis Skin: No rashes Labs Labs: Laboratory Tests Test 07/21/21 05:40 White Blood Count 13.1 x10^3/uL (4.0-11.0) Red Blood Count 4.85 x10^6/uL (3.50-5.40) Hemoglobin 14.4 g/dL (12.0-15.5) Hematocrit 44.0 % (36.0-47.0) Mean Corpuscular Volume 91 fL (79-100) Mean Corpuscular Hemoglobin 30 pg (25-35) Mean Corpuscular Hemoglobin Concent 33 g/dL (31-37) Red Cell Distribution Width 14.3 % (11.5-14.5) Platelet Count 307 x10^3/uL (140-400) Neutrophils (%) (Auto) 86 % (31-73) Lymphocytes (%) (Auto) 9 % (24-48) Monocytes (%) (Auto) 5 % (0-9) Eosinophils (%) (Auto) 0 % (0-3) Basophils (%) (Auto) 0 % (0-3) Neutrophils # (Auto) 11.3 x10^3/uL (1.8-7.7) Lymphocytes # (Auto) 1.1 x10^3/uL (1.0-4.8) Monocytes # (Auto) 0.7 x10^3/uL (0.0-1.1) Eosinophils # (Auto) 0.0 x10^3/uL (0.0-0.7) Basophils # (Auto) 0.0 x10^3/uL (0.0-0.2) Assessment and Plan Assessmemt and Plan Problems Medical Problems: (1) COPD exacerbation Status: Acute (2) Person under investigation for COVID-19 Status: Acute Respiratory failure Pneumonia COPD Elevated BNP History of nephrectomy Hypertension hyperlipidemia History of pancreatitis Overweight Plan Appreciate cardiology second opinion For now continue the following; IV steroids Breathing treatments Oxygen per nasal cannula IV antibiotics Tessalon Perles/Robitussin for cough Home meds DVT prophylaxis Full code Appreciate pulmonary input Cigarette cessation education Comment Review of Relevant I have reviewed the following items rodolfo (where applicable) has been applied. Justifications for Admission Other Justification STEPHANE HOANG III, DO Jul 21, 2021 13:16
[2021-07-21 15:00] VITALS: BP 154/76
[2021-07-21 19:00] VITALS: BP 161/74
[2021-07-21] MEDS: ENOXAPARIN 40 MG/0.4 ML SYRINGE. SQ SCH (21:28)
[2021-07-21 23:32] VITALS: BP 159/79
[2021-07-22] MEDS: methylPREDNISolone SOD SUCC PF 125 MG/2 ML VIAL. IV SCH ×2 (00:12→05:48)
[2021-07-22 03:00] VITALS: BP 164/77
[2021-07-22] MEDS: guaiFENesin DM 200MG/20MG 10 ML SYRUP PO PRN (03:56)
[2021-07-22] MEDS: oxyCODONE IR 5 MG TABLET PO PRN ×2 (03:57→17:23)
[2021-07-22] MEDS: AMPICILLIN/SULBACTAM 3 GM in IV NORMAL SALINE 100ML 100 ML IV SCH ×4 (05:49→17:21)
[2021-07-22 07:00] VITALS: BP 178/75
--- NOTE | 2021-07-22 07:18 | PDOC ---
PULMONARY PROGRESS NOTES DATE: 07/22/21 TIME: 07:16 Subjective Patient better Vitals Vital Signs Date Time Temp Pulse Resp B/P (MAP) Pulse Ox O2 Delivery O2 Flow Rate FiO2 07/22/21 04:27 20 Room Air 07/22/21 03:00 98.1 65 164/77 (106) 91 98.1 ROS: No Nausea General: Alert, Oriented X4 HEENT: Other Lungs: Wheezing (resolved) Cardiovascular: S1, S2 Abdomen: Soft, Non-tender Extremities: No Edema Labs Laboratory Tests Test 07/21/21 05:40 White Blood Count 13.1 x10^3/uL (4.0-11.0) Red Blood Count 4.85 x10^6/uL (3.50-5.40) Hemoglobin 14.4 g/dL (12.0-15.5) Hematocrit 44.0 % (36.0-47.0) Mean Corpuscular Volume 91 fL (79-100) Mean Corpuscular Hemoglobin 30 pg (25-35) Mean Corpuscular Hemoglobin Concent 33 g/dL (31-37) Red Cell Distribution Width 14.3 % (11.5-14.5) Platelet Count 307 x10^3/uL (140-400) Neutrophils (%) (Auto) 86 % (31-73) Lymphocytes (%) (Auto) 9 % (24-48) Monocytes (%) (Auto) 5 % (0-9) Eosinophils (%) (Auto) 0 % (0-3) Basophils (%) (Auto) 0 % (0-3) Neutrophils # (Auto) 11.3 x10^3/uL (1.8-7.7) Lymphocytes # (Auto) 1.1 x10^3/uL (1.0-4.8) Monocytes # (Auto) 0.7 x10^3/uL (0.0-1.1) Eosinophils # (Auto) 0.0 x10^3/uL (0.0-0.7) Basophils # (Auto) 0.0 x10^3/uL (0.0-0.2) Medications Active Scripts Medications Dose Route/Sig Max Daily Dose Days Date Category Lisinopril-Hctz 20-25 Mg Tab (Lisinopril/Hydrochlorothiazide) 1 Each Tablet 1 Tab PO DAILY 07/17/21 Reported Diazepam 5 Mg Tablet 5 Mg PO TID 07/17/21 Reported Lidocaine 1 Each Adh..patch 1 Each TP DAILY 07/17/21 Reported Oxycontin (Oxycodone HCl) 30 Mg Tab.er.12h 1 Tab PO BID MDD 2 Tablet(s) 30 07/17/21 Reported Combivent Respimat Inhal (Ipratropium/Albuterol Sulfate) 4 Gm Aer.w.adap 2 Inh IH QID 07/17/21 Reported Oxycodone Hcl 5 Mg Capsule 10 Mg PO PRN Q4HRS PRN 01/02/19 Rx Promethazine Hcl 25 Mg Tablet 25 Mg PO PRN Q6HRS PRN 01/02/19 Rx Cyclobenzaprine Hcl 10 Mg Tablet 10 Mg PO TID PRN 01/02/19 Rx Senokot (Sennosides) 8.6 Mg Tablet 8.6 Mg PO BID 12/29/18 Reported Escitalopram Oxalate 10 Mg Tablet 10 Mg PO DAILY 12/29/18 Reported Miralax (Polyethylene Glycol 3350) 17 Gm Powd.pack 1 Packet PO DAILY 01/28/18 Reported Albuterol Sulfate Neb Soln (Albuterol Sulfate) 2.5 Mg/3 Ml Vial.neb 1 Vial NEB PRN Q4HRS PRN 01/27/18 Reported Flonase Allergy Relief (Fluticasone Propionate) 9.9 Ml [place].susp 2 Sprays NS DAILY 01/27/18 Reported Vitamin D3 (Cholecalciferol (Vitamin D3)) 5,000 Unit Tablet 1 Tab PO WEEKLY 01/27/18 Reported Comments reviewed cta 1. No pulmonary artery emboli. 2. Bronchial wall thickening likely bronchitis. 3. Centrilobular pulmonary emphysema. Impression . IMPRESSION: 1. Acute exacerbation of chronic obstructive pulmonary disease/ bronchospasm. 2. Acute bronchitis. 3. Obesity, snoring and excessive daytime sleepiness, suspect obstructive sleep apnea-hypopnea syndrome. 4. History of deep venous thrombosis. 5. History of right nephrectomy for kidney cancer. 6. Hypertension. Plan . PLAN AND RECOMMENDATIONS: 1. Continue not smoking. 2. bronchodilators. 3. We will decrease the dose of Solu-Medrol to 60 mg IV every 12 hours. nebulizer treatment Continue with the steroid inhaler as well 4. CT angiogram. reviewed no pe, Bronchial wall thickening likely bronchitis, Centrilobular pulmonary emphysema. 5. lower extremity venous Doppler. neg 6. Continue antibiotic. 7. Lovenox for DVT prophylaxis. 8. I do recommend a sleep study as an outpatient. 9. dc home in 24 hrs. f/u in office discussed w pt ESPERANZA FLETCHER MD Jul 22, 2021 07:18
[2021-07-22 07:56] LABS: BASO % 0 % (0-3); EOS % 0 % (0-3); HEMATOCRIT 43.8 % (36.0-47.0); LYMPH % 7 % (24-48); MEAN CORPUSCULAR HEMOGLOBIN 31 pg (25-35); MEAN CORPUSCULAR HGB CONC 34 g/dL (31-37); MEAN CORPUSCULAR VOLUME 89 fL (79-100); MONO # 1.1 x10^3/uL (0.0-1.1); MONO % 7 % (0-9); NEUT # 13.6 x10^3/uL (1.8-7.7); NEUT % 86 % (31-73); PLATELET COUNT 338 x10^3/uL (140-400); RED BLOOD COUNT 4.89 x10^6/uL (3.50-5.40); RED CELL DISTRIBUTION WIDTH 14.1 % (11.5-14.5); WHITE BLOOD COUNT 15.7 x10^3/uL (4.0-11.0)
[2021-07-22] MEDS: CYCLOBENZAPRINE 10 MG TABLET. PO PRN ×2 (08:49→17:21)
[2021-07-22] MEDS: hydroCHLOROthiazide 25 MG TABLET PO SCH (08:50)
[2021-07-22] MEDS: SENNOSIDES 8.6 MG TABLET PO SCH ×2 (08:50→20:17)
[2021-07-22] MEDS: LACTOBACILLUS RHAMNOSUS GG 1 CAPSULE. PO SCH ×2 (08:50→20:16)
[2021-07-22] MEDS: methylPREDNISolone SOD SUCC PF 40 MG/ML VIAL. IV SCH ×2 (08:50→20:18)
[2021-07-22] MEDS: BENZONATATE 100 MG CAPSULE. PO SCH ×3 (08:50→20:16)
[2021-07-22] MEDS: diazePAM 5 MG TABLET PO SCH ×3 (08:50→20:17)
[2021-07-22] MEDS: CITALOPRAM 20 MG TABLET. PO SCH (08:50)
[2021-07-22] MEDS: LISINOPRIL 20 MG TABLET PO SCH (08:51)
[2021-07-22] MEDS: oxyCODONE ER 15 MG TAB.ER.12H PO SCH ×2 (08:51→20:17)
[2021-07-22] MEDS: FLUTICASONE 50MCG/NASAL SPRAY 16GM BOTTLE. NS SCH (08:54)
[2021-07-22] MEDS: POLYETHYLENE GLYCOL 3350 17 GM PACKET. PO SCH (08:54)
[2021-07-22 11:00] VITALS: BP 172/74
--- NOTE | 2021-07-22 11:07 | PDOC ---
[facility] PROGRESS NOTE Date of Service DOS: DATE: 07/22/21 TIME: 11:06 Chief Complaint Chief Complaint Respiratory failure Pneumonia COPD History of nephrectomy Hypertension hyperlipidemia History of pancreatitis History of Present Illness History of Present Illness 07/22/2021 Patient seen on telemetry She is resting with no apparent distress Discussed with RN Discussed with case management Chart reviewed She seems to be doing better wants to go home tomorrow 07/21/2021 Patient seen and examined She seems to have finally started to improve Her voice is very deep and coarse and raspy I suspect she has been smoking more than she states She wants to quit smoking Discussed with RN Chart reviewed Seen by cardiology yesterday we certainly appreciate their input (occult CHF ruled out) 07/20/2021 Patient seen and examined Discussed with RN Chart reviewed Discussed with case management Her symptoms seem to be resistant so far She still has a lot of coughing and shortness of breath and wheezing Her BNP level was high at greater than 1200 We will consult cardiology for second opinion 07/19/2021 Patient seen and examined Discussed with RN Chart reviewed Patient still sounds very coarse and has a harsh cough 07/18/2021 Patient seen and examined She is resting with no apparent distress Discussed with RN Chart reviewed Vitals/I&O Vitals/I&O: Vital Signs Date Time Temp Pulse Resp B/P (MAP) Pulse Ox O2 Delivery O2 Flow Rate FiO2 07/22/21 08:51 95 Room Air 07/22/21 08:51 52 178/75 07/22/21 07:00 98.0 18 98.0 I & O 07/21/21 07/21/21 07/22/21 15:00 23:00 07:00 Intake Total 100 ml Balance 100 ml Physical Exam General: No acute distress Heart: Regular rate Lungs: Wheezing (resolved) Abdomen: Normal bowel sounds Extremities: No cyanosis Skin: No rashes Labs Labs: Laboratory Tests Test 07/22/21 06:20 White Blood Count 15.7 x10^3/uL (4.0-11.0) Red Blood Count 4.89 x10^6/uL (3.50-5.40) Hemoglobin 15.0 g/dL (12.0-15.5) Hematocrit 43.8 % (36.0-47.0) Mean Corpuscular Volume 89 fL (79-100) Mean Corpuscular Hemoglobin 31 pg (25-35) Mean Corpuscular Hemoglobin Concent 34 g/dL (31-37) Red Cell Distribution Width 14.1 % (11.5-14.5) Platelet Count 338 x10^3/uL (140-400) Neutrophils (%) (Auto) 86 % (31-73) Lymphocytes (%) (Auto) 7 % (24-48) Monocytes (%) (Auto) 7 % (0-9) Eosinophils (%) (Auto) 0 % (0-3) Basophils (%) (Auto) 0 % (0-3) Neutrophils # (Auto) 13.6 x10^3/uL (1.8-7.7) Lymphocytes # (Auto) 1.0 x10^3/uL (1.0-4.8) Monocytes # (Auto) 1.1 x10^3/uL (0.0-1.1) Eosinophils # (Auto) 0.0 x10^3/uL (0.0-0.7) Basophils # (Auto) 0.0 x10^3/uL (0.0-0.2) Assessment and Plan Assessmemt and Plan Problems Medical Problems: (1) COPD exacerbation Status: Acute (2) Person under investigation for COVID-19 Status: Acute Respiratory failure Pneumonia COPD Elevated BNP History of nephrectomy Hypertension hyperlipidemia History of pancreatitis Overweight Plan Probable discharge in a.m. for now continue the following; IV steroids Breathing treatments Oxygen per nasal cannula IV antibiotics Tessalon Perles/Robitussin for cough Home meds DVT prophylaxis Full code Appreciate pulmonary input Cigarette cessation education Appreciate subspecialist input Probable discharge in a.m. Comment Review of Relevant I have reviewed the following items rodolfo (where applicable) has been applied. Medications: Current Medications Medications (Trade) Dose Ordered Sig/Naman Route PRN Reason Start Time Stop Time Status Last Admin Dose Admin Methylprednisolone Sodium Succinate (SOLU-Medrol 40MG VIAL) 60 mg BID IV 07/22/21 09:00 07/22/21 08:50 Justifications for Admission Other Justification STEPHANE HOANG III DO Jul 22, 2021 11:07
[2021-07-22] MEDS: IPRATRPIUM/ALBUTEROL 0.5/2.5MG 3 ML NEBU. NEB SCH ×4 (11:45→19:59)
--- NOTE | 2021-07-22 12:36 | PDOC ---
CARDIO Progress Notes Date and Time Date of Service 07/22/21 Time of Evaluation 1220 Subjective Subjective: No Chest Pain, No Palpitations, No Dizziness, Other (SOA better) Vitals Vitals Vital Signs Date Time Temp Pulse Resp B/P (MAP) Pulse Ox O2 Delivery O2 Flow Rate FiO2 07/22/21 11:46 96 Room Air 07/22/21 11:00 97.9 63 18 172/74 (106) 97.9 Weight Weight [ ] Input and Output Intake and Output Intake and Output 07/22/21 07:00 Intake Total 100 ml Balance 100 ml IV Total 100 ml # Voids 4 # Bowel Movements 1 Laboratory Labs Laboratory Tests Test 07/22/21 06:20 White Blood Count 15.7 x10^3/uL (4.0-11.0) Red Blood Count 4.89 x10^6/uL (3.50-5.40) Hemoglobin 15.0 g/dL (12.0-15.5) Hematocrit 43.8 % (36.0-47.0) Mean Corpuscular Volume 89 fL (79-100) Mean Corpuscular Hemoglobin 31 pg (25-35) Mean Corpuscular Hemoglobin Concent 34 g/dL (31-37) Red Cell Distribution Width 14.1 % (11.5-14.5) Platelet Count 338 x10^3/uL (140-400) Neutrophils (%) (Auto) 86 % (31-73) Lymphocytes (%) (Auto) 7 % (24-48) Monocytes (%) (Auto) 7 % (0-9) Eosinophils (%) (Auto) 0 % (0-3) Basophils (%) (Auto) 0 % (0-3) Neutrophils # (Auto) 13.6 x10^3/uL (1.8-7.7) Lymphocytes # (Auto) 1.0 x10^3/uL (1.0-4.8) Monocytes # (Auto) 1.1 x10^3/uL (0.0-1.1) Eosinophils # (Auto) 0.0 x10^3/uL (0.0-0.7) Basophils # (Auto) 0.0 x10^3/uL (0.0-0.2) Microbiology Micro Microbiology 07/17/21 Blood Culture - Preliminary, Resulted NO GROWTH AFTER 4 DAYS Physical Exam HEENT: Neck Supple W Full Motion Chest: Symmetric LUNGS: Other (diminished ) Heart: RRR Abdomen: Soft N/T Extremities: No Edema Neurology: alert, oriented, follow commands Assessment Assessment 1. Acute on chronic respiratory failure secondary to AECOPD, bronchitis. NT Pro BNP mildly elevated, but CT chest/CXR without evidence of pulmonary edema. Doubt overt HF. Echo with preserved LV systolic function 2. Hypertension; controlled overall 3. Chronic pain/fibromyalgia 4. Right renal CA s/p nephrectomy. 5. Tobaccoism; reinforced cessation 6. Elevated LFTs 7. PUI; COVID negative Recommendations Ongoing lung optimization Supportive care Okay to discharge from a CV standpoin t Justicifation of Admission Dx: Justifications for Admission: Justification of Admission Dx: Yes RICH CHAVEZ APRN Jul 22, 2021 12:36
[2021-07-22] MEDS: NICOTINE 14MG PATCH. TD SCH (13:08)
[2021-07-22 15:00] VITALS: BP 169/79
--- NOTE | 2021-07-22 15:53 | NUR ---
SW following. Discussed with RN, pt from home, room air, cardiac diet, COVID-19 negative. Pt requesting a hospital bed. Dr. Drake provided SW with script, awaiting supporting documentation. [employer] and [employer] out of stock. [facility] have in stock and are in network. Pt requesting to see SW as her utilities are apparently being turned off. SW met with pt to provide utility resources. Pt stated "my patient case manager has already tried all of those." SW explained we do not have any other resources. Pt continued to question whether this hospital has renters assistance. SW explained we do not, and that her patient case manager should be able to work on that for her. Pt verbalized understanding. Pt provided her new address [address] [id number]. RN notified. SW will continue to follow.
[2021-07-22 19:00] VITALS: BP 171/79
[2021-07-22] MEDS: ENOXAPARIN 40 MG/0.4 ML SYRINGE. SQ SCH (20:17)
--- NOTE | 2021-07-22 20:51 | PDOC ---
PROGRESS NOTES Date of Service DATE: 07/22/21 TIME: 20:50 Subjective Subjective Regarding the prescription for the home hospital bed the patient qualifies under the following criteria; The patient has a medical condition which requires positioning of the body in ways not feasible with any ordinary bed. Objective Objective Vital Signs Date Time Temp Pulse Resp B/P (MAP) Pulse Ox O2 Delivery O2 Flow Rate FiO2 07/22/21 20:17 96 Room Air 07/22/21 19:00 97.8 56 17 171/79 (109) 97.8 Intake and Output 07/22/21 07:00 Intake Total 100 ml Balance 100 ml IV Total 100 ml # Voids 4 # Bowel Movements 1 Assessment Assessment Problems Medical Problems: (1) COPD exacerbation Status: Acute (2) Person under investigation for COVID-19 Status: Acute Comment Review of Relevant I have reviewed the following items rodolfo (where applicable) has been applied. Labs Laboratory Tests Test 07/21/21 05:40 07/22/21 06:20 White Blood Count 13.1 x10^3/uL (4.0-11.0) 15.7 x10^3/uL (4.0-11.0) Red Blood Count 4.85 x10^6/uL (3.50-5.40) 4.89 x10^6/uL (3.50-5.40) Hemoglobin 14.4 g/dL (12.0-15.5) 15.0 g/dL (12.0-15.5) Hematocrit 44.0 % (36.0-47.0) 43.8 % (36.0-47.0) Mean Corpuscular Volume 91 fL (79-100) 89 fL (79-100) Mean Corpuscular Hemoglobin 30 pg (25-35) 31 pg (25-35) Mean Corpuscular Hemoglobin Concent 33 g/dL (31-37) 34 g/dL (31-37) Red Cell Distribution Width 14.3 % (11.5-14.5) 14.1 % (11.5-14.5) Platelet Count 307 x10^3/uL (140-400) 338 x10^3/uL (140-400) Neutrophils (%) (Auto) 86 % (31-73) 86 % (31-73) Lymphocytes (%) (Auto) 9 % (24-48) 7 % (24-48) Monocytes (%) (Auto) 5 % (0-9) 7 % (0-9) Eosinophils (%) (Auto) 0 % (0-3) 0 % (0-3) Basophils (%) (Auto) 0 % (0-3) 0 % (0-3) Neutrophils # (Auto) 11.3 x10^3/uL (1.8-7.7) 13.6 x10^3/uL (1.8-7.7) Lymphocytes # (Auto) 1.1 x10^3/uL (1.0-4.8) 1.0 x10^3/uL (1.0-4.8) Monocytes # (Auto) 0.7 x10^3/uL (0.0-1.1) 1.1 x10^3/uL (0.0-1.1) Eosinophils # (Auto) 0.0 x10^3/uL (0.0-0.7) 0.0 x10^3/uL (0.0-0.7) Basophils # (Auto) 0.0 x10^3/uL (0.0-0.2) 0.0 x10^3/uL (0.0-0.2) Laboratory Tests Test 07/22/21 06:20 White Blood Count 15.7 x10^3/uL (4.0-11.0) Red Blood Count 4.89 x10^6/uL (3.50-5.40) Hemoglobin 15.0 g/dL (12.0-15.5) Hematocrit 43.8 % (36.0-47.0) Mean Corpuscular Volume 89 fL (79-100) Mean Corpuscular Hemoglobin 31 pg (25-35) Mean Corpuscular Hemoglobin Concent 34 g/dL (31-37) Red Cell Distribution Width 14.1 % (11.5-14.5) Platelet Count 338 x10^3/uL (140-400) Neutrophils (%) (Auto) 86 % (31-73) Lymphocytes (%) (Auto) 7 % (24-48) Monocytes (%) (Auto) 7 % (0-9) Eosinophils (%) (Auto) 0 % (0-3) Basophils (%) (Auto) 0 % (0-3) Neutrophils # (Auto) 13.6 x10^3/uL (1.8-7.7) Lymphocytes # (Auto) 1.0 x10^3/uL (1.0-4.8) Monocytes # (Auto) 1.1 x10^3/uL (0.0-1.1) Eosinophils # (Auto) 0.0 x10^3/uL (0.0-0.7) Basophils # (Auto) 0.0 x10^3/uL (0.0-0.2) Microbiology 07/17/21 Blood Culture - Final, Complete NO GROWTH AFTER 5 DAYS Medications Current Medications Methylprednisolone Sodium Succinate (SOLU-Medrol 125MG VIAL) 125 mg 1X ONCE IV Last administered on 07/17/21at 12:18; Start 07/17/21 at 12:15; Stop 07/17/21 at 12:16; Status DC Albuterol/ Ipratropium (Duoneb) 3 ml 1X ONCE NEB Last administered on 07/17/21at 12:14; Start 07/17/21 at 12:15; Stop 07/17/21 at 12:16; Status DC Sodium Chloride 1,000 ml @ 1,000 mls/hr 1X ONCE IV Last administered on 07/17/21at 12:18; Start 07/17/21 at 12:15; Stop 07/17/21 at 13:14; Status DC Hydralazine HCl (Apresoline Inj) 10 mg 1X ONCE IVP Last administered on 07/17/21at 12:26; Start 07/17/21 at 12:30; Stop 07/17/21 at 12:31; Status DC Hydralazine HCl (Apresoline Inj) 20 mg STK-MED ONCE .ROUTE ; Start 07/17/21 at 12:23; Stop 07/17/21 at 12:24; Status DC Piperacillin Sod/ Tazobactam Sod 3.375 gm/Sodium Chloride 50 ml @ 100 mls/hr 1X ONCE IV Last administered on 07/17/21at 12:52; Start 07/17/21 at 12:30; Stop 07/17/21 at 12:59; Status DC Acetaminophen (Tylenol) 1,000 mg 1X ONCE PO Last administered on 07/17/21at 12:53; Start 07/17/21 at 12:30; Stop 07/17/21 at 12:31; Status DC Lorazepam (Ativan Inj) 0.5 mg 1X ONCE IVP Last administered on 07/17/21at 12:53; Start 07/17/21 at 12:45; Stop 07/17/21 at 12:46; Status DC Ketorolac Tromethamine (Toradol 15mg Vial) 15 mg 1X ONCE IVP Last administered on 07/17/21at 12:52; Start 07/17/21 at 12:45; Stop 07/17/21 at 12:46; Status DC Diazepam (Valium) 5 mg TID PO Last administered on 07/22/21at 20:17; Start 07/17/21 at 21:00 Polyethylene Glycol (miraLAX PACKET) 17 gm DAILY PO Last administered on 07/21/21at 09:21; Start 07/18/21 at 09:00 Sennosides (Senna) 8.6 mg BID PO Last administered on 07/22/21at 20:17; Start 07/17/21 at 21:00 Citalopram Hydrobromide (CeleXA) 20 mg DAILY PO Last administered on 07/22/21at 08:50; Start 07/18/21 at 09:00 Fluticasone Propionate (Flonase) 2 spray DAILY NS Last administered on 07/21/21 09:21; Start 07/18/21 at 09:00 Albuterol/ Ipratropium (Combivent Respimat 20-100 Mcg) 1 puff RTQID INH ; Start 07/17/21 at 17:00; Stop 07/17/21 at 16:58; Status DC Lisinopril (Prinivil) 20 mg DAILY PO Last administered on 07/22/21at 08:51; Start 07/17/21 at 17:00 Hydrochlorothiazide (Hydrodiuril) 25 mg DAILY PO Last administered on 07/22/21at 08:50; Start 07/17/21 at 17:00 Oxycodone HCl (Roxicodone) 10 mg PRN Q4HRS PRN PO PAIN Last administered on 07/22/21at 17:23; Start 07/17/21 at 16:30 Oxycodone HCl (OxyCONTIN) 30 mg BID PO ; Start 07/17/21 at 21:00; Stop 07/17/21 at 16:42; Status DC Oxycodone HCl (OxyCONTIN) 30 mg BID PO Last administered on 07/22/21at 20:17; Start 07/17/21 at 16:45 Albuterol/ Ipratropium (Duoneb) 3 ml RTQID NEB ; Start 07/17/21 at 20:00; Status Cancel Methylprednisolone Sodium Succinate (SOLU-Medrol 125MG VIAL) 125 mg 1X ONCE IV Last administered on 07/17/21at 18:10; Start 07/17/21 at 17:00; Stop 07/17/21 at 17:01; Status DC Influenza Virus Vaccine Quadrival (Flulaval Quad [id number] Syringe) 0.5 ml ONCE ONCE VAX IM ; Start 07/17/21 at 16:45; Stop 07/17/21 at 16:56; Status DC Albuterol/ Ipratropium (Duoneb) 3 ml RTQID NEB Last administered on 07/20/21at 07:35; Start 07/17/21 at 20:00; Stop 07/20/21 at 10:46; Status DC Cyclobenzaprine HCl (Flexeril) 10 mg PRN TID PRN PO MUSCLE SPASMS Last administered on 07/22/21at 17:21; Start 07/17/21 at 18:45 Nicotine (Nicoderm Cq 14mg) 1 patch DAILY TD Last administered on 07/22/21at 13:08; Start 07/17/21 at 18:45 Lorazepam (Ativan Inj) 2 mg PRN Q4HRS PRN IVP ANXIETY / AGITATION; Start 07/17/21 at 18:45 Ampicillin Sodium/ Sulbactam Sodium 3 gm/Sodium Chloride 100 ml @ 200 mls/hr Q6HRS IV Last administered on 07/22/21at 17:21; Start 07/18/21 at 00:00 Azithromycin 500 mg/Sodium Chloride 250 ml @ 250 mls/hr Q24H IV Last administered on 07/19/21at 22:16; Start 07/17/21 at 22:00; Stop 07/20/21 at 21:59; Status DC Albuterol/ Ipratropium (Duoneb) 3 ml 1X ONCE NEB Last administered on 07/18/21at 08:40; Start 07/18/21 at 02:15; Stop 07/18/21 at 02:16; Status DC Methylprednisolone Sodium Succinate (SOLU-Medrol 40MG VIAL) 40 mg Q8HRS IV Last administered on 07/20/21at 08:48; Start 07/18/21 at 07:00; Stop 07/20/21 at 10:48; Status DC Iohexol (Omnipaque 350 Mg/ml) 75 ml 1X ONCE IV Last administered on 07/18/21at 11:58; Start 07/18/21 at 12:15; Stop 07/18/21 at 12:16; Status DC Info (CONTRAST GIVEN -- Rx MONITORING) 1 each PRN DAILY PRN MC SEE COMMENTS; Start 07/18/21 at 12:15; Stop 07/20/21 at 12:14; Status DC Enoxaparin Sodium (Lovenox 40mg Syringe) 40 mg Q24H SQ Last administered on 07/22/21at 20:17; Start 07/18/21 at 21:00 Lactobacillus Rhamnosus (Culturelle) 1 cap BID PO Last administered on 07/22/21at 20:16; Start 07/18/21 at 21:00 Benzonatate (Tessalon Perle) 100 mg [id number] PO Last administered on 07/22/21at 20:16; Start 07/19/21 at 14:00 Albuterol/ Ipratropium (Duoneb) 3 ml Q4HRS NEB Last administered on 07/22/21at 19:59; Start 07/20/21 at 12:00 Methylprednisolone Sodium Succinate (SOLU-Medrol 125MG VIAL) 60 mg Q6HRS IV Last administered on 07/22/21at 05:48; Start 07/20/21 at 12:00; Stop 07/22/21 at 07:19; Status DC Guaifenesin (Robitussin Dm) 10 ml PRN Q6HRS PRN PO COUGH Last administered on 07/21/21at 21:27; Start 07/20/21 at 12:00 Methylprednisolone Sodium Succinate (SOLU-Medrol 40MG VIAL) 60 mg BID IV Last administered on 07/22/21at 20:18; Start 07/22/21 at 09:00 Active Scripts Active Oxycodone Hcl 5 Mg Capsule 10 Mg PO PRN Q4HRS PRN Promethazine Hcl 25 Mg Tablet 25 Mg PO PRN Q6HRS PRN Cyclobenzaprine Hcl 10 Mg Tablet 10 Mg PO TID PRN Reported Lisinopril-Hctz 20-25 Mg Tab (Lisinopril/Hydrochlorothiazide) 1 Each Tablet 1 Tab PO DAILY Diazepam 5 Mg Tablet 5 Mg PO TID Lidocaine 1 Each Adh..patch 1 Each TP DAILY Oxycontin (Oxycodone HCl) 30 Mg Tab.er.12h 1 Tab PO BID MDD 2 Tablet(s) 30 Days Combivent Respimat Inhal (Ipratropium/Albuterol Sulfate) 4 Gm Aer.w.adap 2 Inh IH QID Senokot (Sennosides) 8.6 Mg Tablet 8.6 Mg PO BID Escitalopram Oxalate 10 Mg Tablet 10 Mg PO DAILY Miralax (Polyethylene Glycol 3350) 17 Gm Powd.pack 1 Packet PO DAILY Albuterol Sulfate Neb Soln (Albuterol Sulfate) 2.5 Mg/3 Ml Vial.neb 1 Vial NEB PRN Q4HRS PRN Flonase Allergy Relief (Fluticasone Propionate) 9.9 Ml [place].susp 2 Sprays NS DAILY Vitamin D3 (Cholecalciferol (Vitamin D3)) 5,000 Unit Tablet 1 Tab PO WEEKLY Vitals/I & O Vital Sign - Last 24 Hours 07/21/21 07/21/21 07/22/21 07/22/21 21:28 23:32 01:25 03:00 Temp 97.3 98.1 97.3 98.1 Pulse 77 65 Resp 19 18 18 18 B/P (MAP) 159/79 (105) 164/77 (106) Pulse Ox 92 91 O2 Delivery Room Air Room Air BiPAP/CPAP Room Air 07/22/21 07/22/21 07/22/21 07/22/21 03:57 04:27 07:00 07:51 Temp 98.0 98.0 Pulse 52 Resp 19 20 18 B/P (MAP) 178/75 (109) Pulse Ox 95 95 O2 Delivery Room Air Room Air Room Air Room Air 07/22/21 07/22/21 07/22/21 07/22/21 08:10 08:51 08:51 11:00 Temp 97.9 97.9 Pulse 52 63 Resp 18 B/P (MAP) 178/75 172/74 (106) Pulse Ox 95 93 O2 Delivery Room Air Room Air 07/22/21 07/22/21 07/22/21 07/22/21 11:46 12:51 15:00 17:23 Temp 98.0 98.0 Pulse 67 Resp 18 B/P (MAP) 169/79 (109) Pulse Ox 96 96 92 92 O2 Delivery Room Air Room Air Room Air 07/22/21 07/22/21 07/22/21 07/22/21 17:53 19:00 19:59 20:17 Temp 97.8 97.8 Pulse 56 Resp 17 B/P (MAP) 171/79 (109) Pulse Ox 92 92 96 96 O2 Delivery Room Air Room Air Room Air Room Air Intake and Output 07/21/21 07/21/21 07/22/21 15:00 23:00 07:00 Intake Total 100 ml Balance 100 ml Justifications for Admission Other Justification STEPHANE HOANG III DO Jul 22, 2021 20:51
[2021-07-22 23:01] VITALS: BP 174/78
[2021-07-23] MEDS: CYCLOBENZAPRINE 10 MG TABLET. PO PRN (00:33)
[2021-07-23] MEDS: oxyCODONE IR 5 MG TABLET PO PRN ×2 (00:33→06:34)
[2021-07-23] MEDS: AMPICILLIN/SULBACTAM 3 GM in IV NORMAL SALINE 100ML 100 ML IV SCH ×2 (00:35→06:31)
[2021-07-23] MEDS: IPRATRPIUM/ALBUTEROL 0.5/2.5MG 3 ML NEBU. NEB SCH ×4 (00:47→11:24)
[2021-07-23 03:00] VITALS: BP 169/74
[2021-07-23 07:00] VITALS: BP 185/82
[2021-07-23 07:33] LABS: BASO % 0 % (0-3); EOS % 0 % (0-3); HEMATOCRIT 44.6 % (36.0-47.0); HEMOGLOBIN 14.7 g/dL (12.0-15.5); LYMPH # 1.2 x10^3/uL (1.0-4.8); LYMPH % 8 % (24-48); MEAN CORPUSCULAR HEMOGLOBIN 29 pg (25-35); MEAN CORPUSCULAR HGB CONC 33 g/dL (31-37); MEAN CORPUSCULAR VOLUME 89 fL (79-100); MONO # 1.3 x10^3/uL (0.0-1.1); MONO % 8 % (0-9); NEUT # 13.6 x10^3/uL (1.8-7.7); NEUT % 84 % (31-73); PLATELET COUNT 328 x10^3/uL (140-400); RED BLOOD COUNT 4.99 x10^6/uL (3.50-5.40); RED CELL DISTRIBUTION WIDTH 14.1 % (11.5-14.5); WHITE BLOOD COUNT 16.1 x10^3/uL (4.0-11.0)
[2021-07-23] MEDS: diazePAM 5 MG TABLET PO SCH (08:31)
[2021-07-23] MEDS: oxyCODONE ER 15 MG TAB.ER.12H PO SCH (08:31)
[2021-07-23] MEDS: SENNOSIDES 8.6 MG TABLET PO SCH (08:31)
[2021-07-23] MEDS: LACTOBACILLUS RHAMNOSUS GG 1 CAPSULE. PO SCH (08:31)
[2021-07-23] MEDS: hydroCHLOROthiazide 25 MG TABLET PO SCH (08:31)
[2021-07-23] MEDS: NICOTINE 14MG PATCH. TD SCH (08:31)
[2021-07-23] MEDS: BENZONATATE 100 MG CAPSULE. PO SCH (08:32)
[2021-07-23] MEDS: LISINOPRIL 20 MG TABLET PO SCH (08:32)
[2021-07-23] MEDS: POLYETHYLENE GLYCOL 3350 17 GM PACKET. PO SCH (08:33)
[2021-07-23] MEDS: FLUTICASONE 50MCG/NASAL SPRAY 16GM BOTTLE. NS SCH (08:33)
[2021-07-23] MEDS: CITALOPRAM 20 MG TABLET. PO SCH (08:33)
--- NOTE | 2021-07-23 08:51 | PDOC ---
PULMONARY PROGRESS NOTES DATE: 07/23/21 TIME: 08:50 Subjective Patient better Vitals Vital Signs Date Time Temp Pulse Resp B/P (MAP) Pulse Ox O2 Delivery O2 Flow Rate FiO2 07/23/21 08:32 57 185/82 07/23/21 08:31 Room Air 07/23/21 07:18 94 07/23/21 07:00 97.5 16 97.5 ROS: No Nausea General: Alert, Oriented X4 HEENT: Other Lungs: Wheezing (resolved) Cardiovascular: S1, S2 Abdomen: Soft, Non-tender Extremities: No Edema Labs Laboratory Tests Test 07/22/21 06:20 07/23/21 06:55 White Blood Count 15.7 x10^3/uL (4.0-11.0) 16.1 x10^3/uL (4.0-11.0) Red Blood Count 4.89 x10^6/uL (3.50-5.40) 4.99 x10^6/uL (3.50-5.40) Hemoglobin 15.0 g/dL (12.0-15.5) 14.7 g/dL (12.0-15.5) Hematocrit 43.8 % (36.0-47.0) 44.6 % (36.0-47.0) Mean Corpuscular Volume 89 fL (79-100) 89 fL (79-100) Mean Corpuscular Hemoglobin 31 pg (25-35) 29 pg (25-35) Mean Corpuscular Hemoglobin Concent 34 g/dL (31-37) 33 g/dL (31-37) Red Cell Distribution Width 14.1 % (11.5-14.5) 14.1 % (11.5-14.5) Platelet Count 338 x10^3/uL (140-400) 328 x10^3/uL (140-400) Neutrophils (%) (Auto) 86 % (31-73) 84 % (31-73) Lymphocytes (%) (Auto) 7 % (24-48) 8 % (24-48) Monocytes (%) (Auto) 7 % (0-9) 8 % (0-9) Eosinophils (%) (Auto) 0 % (0-3) 0 % (0-3) Basophils (%) (Auto) 0 % (0-3) 0 % (0-3) Neutrophils # (Auto) 13.6 x10^3/uL (1.8-7.7) 13.6 x10^3/uL (1.8-7.7) Lymphocytes # (Auto) 1.0 x10^3/uL (1.0-4.8) 1.2 x10^3/uL (1.0-4.8) Monocytes # (Auto) 1.1 x10^3/uL (0.0-1.1) 1.3 x10^3/uL (0.0-1.1) Eosinophils # (Auto) 0.0 x10^3/uL (0.0-0.7) 0.0 x10^3/uL (0.0-0.7) Basophils # (Auto) 0.0 x10^3/uL (0.0-0.2) 0.0 x10^3/uL (0.0-0.2) Laboratory Tests Test 07/23/21 06:55 White Blood Count 16.1 x10^3/uL (4.0-11.0) Red Blood Count 4.99 x10^6/uL (3.50-5.40) Hemoglobin 14.7 g/dL (12.0-15.5) Hematocrit 44.6 % (36.0-47.0) Mean Corpuscular Volume 89 fL (79-100) Mean Corpuscular Hemoglobin 29 pg (25-35) Mean Corpuscular Hemoglobin Concent 33 g/dL (31-37) Red Cell Distribution Width 14.1 % (11.5-14.5) Platelet Count 328 x10^3/uL (140-400) Neutrophils (%) (Auto) 84 % (31-73) Lymphocytes (%) (Auto) 8 % (24-48) Monocytes (%) (Auto) 8 % (0-9) Eosinophils (%) (Auto) 0 % (0-3) Basophils (%) (Auto) 0 % (0-3) Neutrophils # (Auto) 13.6 x10^3/uL (1.8-7.7) Lymphocytes # (Auto) 1.2 x10^3/uL (1.0-4.8) Monocytes # (Auto) 1.3 x10^3/uL (0.0-1.1) Eosinophils # (Auto) 0.0 x10^3/uL (0.0-0.7) Basophils # (Auto) 0.0 x10^3/uL (0.0-0.2) Medications Active Scripts Medications Dose Route/Sig Max Daily Dose Days Date Category Lisinopril-Hctz 20-25 Mg Tab (Lisinopril/Hydrochlorothiazide) 1 Each Tablet 1 Tab PO DAILY 07/17/21 Reported Diazepam 5 Mg Tablet 5 Mg PO TID 07/17/21 Reported Lidocaine 1 Each Adh..patch 1 Each TP DAILY 07/17/21 Reported Oxycontin (Oxycodone HCl) 30 Mg Tab.er.12h 1 Tab PO BID MDD 2 Tablet(s) 30 07/17/21 Reported Combivent Respimat Inhal (Ipratropium/Albuterol Sulfate) 4 Gm Aer.w.adap 2 Inh IH QID 07/17/21 Reported Oxycodone Hcl 5 Mg Capsule 10 Mg PO PRN Q4HRS PRN 01/02/19 Rx Promethazine Hcl 25 Mg Tablet 25 Mg PO PRN Q6HRS PRN 01/02/19 Rx Cyclobenzaprine Hcl 10 Mg Tablet 10 Mg PO TID PRN 01/02/19 Rx Senokot (Sennosides) 8.6 Mg Tablet 8.6 Mg PO BID 12/29/18 Reported Escitalopram Oxalate 10 Mg Tablet 10 Mg PO DAILY 12/29/18 Reported Miralax (Polyethylene Glycol 3350) 17 Gm Powd.pack 1 Packet PO DAILY 01/28/18 Reported Albuterol Sulfate Neb Soln (Albuterol Sulfate) 2.5 Mg/3 Ml Vial.neb 1 Vial NEB PRN Q4HRS PRN 01/27/18 Reported Flonase Allergy Relief (Fluticasone Propionate) 9.9 Ml [place].susp 2 Sprays NS DAILY 01/27/18 Reported Vitamin D3 (Cholecalciferol (Vitamin D3)) 5,000 Unit Tablet 1 Tab PO WEEKLY 01/27/18 Reported Comments reviewed cta 1. No pulmonary artery emboli. 2. Bronchial wall thickening likely bronchitis. 3. Centrilobular pulmonary emphysema. Impression . IMPRESSION: 1. Acute exacerbation of chronic obstructive pulmonary disease/ bronchospasm. 2. Acute bronchitis. 3. Obesity, snoring and excessive daytime sleepiness, suspect obstructive sleep apnea-hypopnea syndrome. 4. History of deep venous thrombosis. 5. History of right nephrectomy for kidney cancer. 6. Hypertension. Plan . PLAN AND RECOMMENDATIONS: 1. Patient committed to stay away from cigarettes. 2. bronchodilators. 3. Discontinue IV steroids and change to p.o. prednisone today. 4. CT angiogram. reviewed no pe, Bronchial wall thickening likely bronchitis, Centrilobular pulmonary emphysema. 5. lower extremity venous Doppler. neg 6. Continue antibiotic. 7. Lovenox for DVT prophylaxis. 8. I do recommend a sleep study as an outpatient. 9. Okay to discharge her today. We will have her follow-up in August with me in the office. Will obtain outpatient PFTs. Would also recommend sleep study ESPERANZA FLETCHER MD Jul 23, 2021 08:51
[2021-07-23] MEDS ORDERED: methylPREDNISolone 4 MG TABLET. PO SCH (09:00)
--- NOTE | 2021-07-23 10:18 | NUR ---
SW following. Discussed with RN, pt from home, room air, cardiac diet. SW faxed referral for hospital bed to [facility], awaiting approval. Pt aware it will not be delivered prior to hospital discharge. Anticipate discharge today. SW will continue to follow.
--- NOTE | 2021-07-23 10:47 | PDOC ---
[facility] PROGRESS NOTE Date of Service DOS: DATE: 07/23/21 TIME: 10:46 Chief Complaint Chief Complaint Respiratory failure Pneumonia COPD History of nephrectomy Hypertension hyperlipidemia History of pancreatitis History of Present Illness History of Present Illness 07/23/2021 Patient seen and examined She is approaching her baseline Requesting discharge Discussed with case management Discussed with RN Chart reviewed We will go ahead and discharge 07/22/2021 Patient seen on telemetry She is resting with no apparent distress Discussed with RN Discussed with case management Chart reviewed She seems to be doing better wants to go home tomorrow 07/21/2021 Patient seen and examined She seems to have finally started to improve Her voice is very deep and coarse and raspy I suspect she has been smoking more than she states She wants to quit smoking Discussed with RN Chart reviewed Seen by cardiology yesterday we certainly appreciate their input (occult CHF ruled out) 07/20/2021 Patient seen and examined Discussed with RN Chart reviewed Discussed with case management Her symptoms seem to be resistant so far She still has a lot of coughing and shortness of breath and wheezing Her BNP level was high at greater than 1200 We will consult cardiology for second opinion 07/19/2021 Patient seen and examined Discussed with RN Chart reviewed Patient still sounds very coarse and has a harsh cough 07/18/2021 Patient seen and examined She is resting with no apparent distress Discussed with RN Chart reviewed Vitals/I&O Vitals/I&O: Vital Signs Date Time Temp Pulse Resp B/P (MAP) Pulse Ox O2 Delivery O2 Flow Rate FiO2 07/23/21 08:32 57 185/82 07/23/21 08:31 Room Air 07/23/21 07:18 94 07/23/21 07:00 97.5 16 97.5 I & O 07/22/21 07/22/21 07/23/21 15:00 23:00 07:00 Intake Total 100 ml Output Total 200 ml Balance -100 ml Physical Exam General: No acute distress Heart: Regular rate Lungs: Wheezing (resolved) Abdomen: Normal bowel sounds Extremities: No cyanosis Skin: No rashes Labs Labs: Laboratory Tests Test 07/23/21 06:55 White Blood Count 16.1 x10^3/uL (4.0-11.0) Red Blood Count 4.99 x10^6/uL (3.50-5.40) Hemoglobin 14.7 g/dL (12.0-15.5) Hematocrit 44.6 % (36.0-47.0) Mean Corpuscular Volume 89 fL (79-100) Mean Corpuscular Hemoglobin 29 pg (25-35) Mean Corpuscular Hemoglobin Concent 33 g/dL (31-37) Red Cell Distribution Width 14.1 % (11.5-14.5) Platelet Count 328 x10^3/uL (140-400) Neutrophils (%) (Auto) 84 % (31-73) Lymphocytes (%) (Auto) 8 % (24-48) Monocytes (%) (Auto) 8 % (0-9) Eosinophils (%) (Auto) 0 % (0-3) Basophils (%) (Auto) 0 % (0-3) Neutrophils # (Auto) 13.6 x10^3/uL (1.8-7.7) Lymphocytes # (Auto) 1.2 x10^3/uL (1.0-4.8) Monocytes # (Auto) 1.3 x10^3/uL (0.0-1.1) Eosinophils # (Auto) 0.0 x10^3/uL (0.0-0.7) Basophils # (Auto) 0.0 x10^3/uL (0.0-0.2) Assessment and Plan Assessmemt and Plan Problems Medical Problems: (1) COPD exacerbation Status: Acute (2) Person under investigation for COVID-19 Status: Acut Discharge see dictation Comment Review of Relevant I have reviewed the following items roodlfo (where applicable) has been applied. Medications: Current Medications Medications (Trade) Dose Ordered Sig/Naman Route PRN Reason Start Time Stop Time Status Last Admin Dose Admin Methylprednisolone (Medrol) 30 mg DAILY PO 07/23/21 09:00 07/23/21 09:14 Justifications for Admission Other Justification STEPHANE HOANG III DO Jul 23, 2021 10:47
[2021-07-23] MEDS ORDERED: OXYC15TA61 PO (10:52)
[2021-07-23] MEDS ORDERED: BENZ-8 PO (10:52)
[2021-07-23] MEDS ORDERED: HYDR-2145 PO (10:52)
[2021-07-23] MEDS ORDERED: METH4TAB2 PO (10:52)
[2021-07-23] MEDS ORDERED: AMOX1TAB61 PO (10:52)
--- NOTE | 2021-07-23 10:53 | SNU/HH DC ---
DISCHARGE WITH HOME HEALTH DISCHARGE INFORMATION: Final Diagnosis: Problems Medical Problems: (1) COPD exacerbation Status: Acute (2) Person under investigation for COVID-19 Status: Acute Condition on Discharge: Stable CODE STATUS: Code Status: Full HOME HEALTH: Face to Face: I certify this patient is under my care and that I, or a nurse practitioner or physician's instruction assistant principal working with me, had a face to face encounter that meets the physician face to face encounter requirements with this patient on []. Medical Complications: COPD Mcc For: Assess Cardiopulm Status RN For Eval/Treatment: Yes Physical Therapy For: Evalulation/Treatment Occupational Therapy For: Evaluation/Treatment Home Health Aide For: Self-care M[employer]ED [employer] INSPECTOR TRIMMER For: Community Resources Pt Meets Homebound Status: Poor coordination w/ amb. POST DISCHARGE ORDERS: Activity Instructions for Disc: No restrictions, Avoid exertion Weight Bearing Status after Di: As tolerated DIET AFTER DISCHARGE: Cardiac CHECKS AFTER DISCHARGE: Checks after discharge: Check blood press - daily TREATMENT/EQUIPMENT ORDERS: Adaptive Equipment Issued: None CERTIFICATION STATEMENT: Certification Statement: Certification Statement: Based on the above finding, I certify that this patient is confined to the home and needs intermittent senior living care, physical therapy and/or speech therapy, or continues to need occupational therapy.~ This patient is under my care, and I have initiated the establishment of the plan of care.~ This patient will be followed by myself or a community physician who will periodically review the plan of care. Home Meds Active Scripts Amoxicillin/Potassium Clav (AUGMENTIN 875-125 TABLET) 1 Each Tablet, 1 TAB PO BID for . for 7 Days, #14 TAB 0 Refills Prov:CASTLE,NIAL K III DO 07/23/21 Methylprednisolone (MEDROL) 4 Mg Tab.ds.pk, 1 PKG PO UD for ., #1 PKG Prov:CASTLE,NIAL K III DO 07/23/21 Benzonatate (BENZONATATE) 100 Mg Capsule, 100 MG PO [id number] for . for 14 Days, #30 CAP Prov:CASTLE,NIAL K III DO 07/23/21 Hydrochlorothiazide (HYDROCHLOROTHIAZIDE TABLET ) 25 Mg Tablet, 25 MG PO DAILY for . for 30 Days, #30 TAB Prov:CASTLE,NIAL K III DO 07/23/21 Oxycodone HCl (Oxycontin) 15 Mg Tab.er.12h, 30 MG PO BID for pain for 10 Days, #20 TAB.SR Prov:STEPHANE HOANG K III DO 07/23/21 Oxycodone Hcl (OXYCODONE HCL) 5 Mg Capsule, 10 MG PO PRN Q4HRS PRN for PAIN, #40 TAB 0 Refills Prov:YANIV LOMELI MD 01/02/19 Promethazine Hcl (PROMETHAZINE HCL) 25 Mg Tablet, 25 MG PO PRN Q6HRS PRN for NAUSEA/VOMITING, #20 TAB Prov:YANIV LOMELI MD 01/02/19 Cyclobenzaprine Hcl (CYCLOBENZAPRINE HCL) 10 Mg Tablet, 10 MG PO TID PRN for MUSCLE SPASMS, #30 TAB Prov:YANIV LOMELI MD 01/02/19 Reported Medications Lisinopril/Hydrochlorothiazide (LISINOPRIL-HCTZ 20-25 MG TAB) 1 Each Tablet, 1 TAB PO DAILY for HTN, #30 TAB 5 Refills 07/17/21 Diazepam (DIAZEPAM) 5 Mg Tablet, 5 MG PO TID for anxiety, TAB 07/17/21 Lidocaine (Lidocaine) 1 Each Adh..patch, 1 EACH TP DAILY for pain, PATCH 07/17/21 Oxycodone Hcl (OXYCONTIN) 30 Mg Tab.er.12h, 1 TAB PO BID for pain MDD 2 Tablet(s) for 30 Days, #60 TAB 0 Refills 07/17/21 Ipratropium/Albuterol Sulfate (COMBIVENT RESPIMAT INHAL) 4 Gm Aer.w.adap, 2 INH IH QID for COPD, EACH 07/17/21 Sennosides (SENOKOT) 8.6 Mg Tablet, 8.6 MG PO BID for costipation, TAB 12/29/18 Escitalopram Oxalate (ESCITALOPRAM OXALATE) 10 Mg Tablet, 10 MG PO DAILY for ANTI-DEPRESSANT, #30 TAB 0 Refills 12/29/18 Polyethylene Glycol 3350 (MIRALAX) 17 Gm Powd.pack, 1 PACKET PO DAILY, #30 PACKET 3 Refills 01/28/18 Albuterol Sulfate (ALBUTEROL SULFATE NEB SOLN) 2.5 Mg/3 Ml Vial.neb, 1 VIAL NEB PRN Q4HRS PRN for WHEEZING, #50 VIAL 01/27/18 Fluticasone Propionate (Flonase Allergy Relief) 9.9 Ml [place].susp, 2 SPRAYS NS DAILY, BOTTLE 01/27/18 Cholecalciferol (Vitamin D3) (VITAMIN D3) 5,000 Unit Tablet, 1 TAB PO WEEKLY, #30 TAB 01/27/18 STEPHANE HOANG III DO Jul 23, 2021 10:53
[2021-07-23 11:00] VITALS: BP 177/81
--- NOTE | 2021-07-23 12:11 | NUR ---
Patient discharge home with self care today, via wheelchair, accompanied by this RN. Patient is stable, IV removed, and discharge paperwork given to patient. Patient verbalized understanding of followup and discharge instruction.
--- NOTE | 2021-07-23 12:57 | DS ---
DATE OF DISCHARGE: 07/23/2021 ADMITTING DIAGNOSES: Severe respiratory failure secondary to chronic obstructive pulmonary disease, bilateral pneumonia, narcotic dependence, history of nephrectomy, hyperlipidemia, and history of pancreatitis. DISCHARGE DIAGNOSES: Resolving respiratory failure secondary to near end-stage chronic obstructive pulmonary disease, tobacco abuse, narcotic dependence, debility, history nephrectomy, hyperlipidemia, and pancreatitis. CONSULTS: Cardiology and Pulmonary Medicine. PROCEDURES: None. HOSPITAL COURSE: The patient is a pleasant, middle-aged female who presented with severe respiratory failure secondary to COPD. We gave her IV antibiotics, breathing treatments, IV steroids, oxygen and the above consults were obtained. Over the past week or so, she slowly returned to her baseline. Today, I saw and examined her. She is doing well. She agrees to quit smoking. We plan to discharge on p.o. antibiotics and p.o. steroids. DISPOSITION: Home. ACTIVITY: As tolerated. DIET: Low sodium. DISCHARGE MEDICATIONS: Please see the MRAD. Augmentin 875 b.i.d. for 1 week, benzonatate 100 t.i.d. p.r.n., hydrochlorothiazide 25 a day, prednisone taper with Medrol Dosepak, OxyContin 15 b.i.d., albuterol, vitamin D, cyclobenzaprine 10 t.i.d., Valium 5 t.i.d., escitalopram 10 a day, Flonase, lidocaine patches, lisinopril/hydrochlorothiazide 20/25 one a day. She also has some immediate release oxycodone at home 5 mg tablets 1 q. 4 for breakthrough pain, Phenergan 25 q. 6 p.r.n., MiraLax, and senna. TOTAL TIME: 36 minutes. TIFFANI/MICHELLE/MILES DR: TIFFANI/quinton TID: [id number]
--- NOTE | 2021-08-05 16:58 | NUR ---
[facility] called to advise they had not received the signed request form back from [facility]. BAL[place] advised this had never been sent to [facility]. SW provided fax number. Dr. Mccoy signed the request form and SW faxed back to [facility]. No further SW needs.
== END 2021-07-23 12:13 | disposition still patient (30) | DRG 871 ==
LOC: ER 11:29 → 5 NORTH 13:00
PROVIDERS: ADMIT Student in an Organized Health Care Education/Training Program; ATTEND Student in an Organized Health Care Education/Training Program
DX: A41.9 Sepsis, unspecified organism (principal); J15.6 Pneumonia due to other Gram-negative bacteria; J96.20 Acute and chronic respiratory failure, unspecified whether with hypoxia or hypercapnia; C64.1 Malignant neoplasm of right kidney, except renal pelvis; F11.20 Opioid dependence, uncomplicated; E66.9 Obesity, unspecified; E78.00 Pure hypercholesterolemia, unspecified; E78.5 Hyperlipidemia, unspecified; F17.200 Nicotine dependence, unspecified, uncomplicated; G89.29 Other chronic pain; I10 Essential (primary) hypertension; J20.9 Acute bronchitis, unspecified; J43.2 Centrilobular emphysema; M19.90 Unspecified osteoarthritis, unspecified site; M79.7 Fibromyalgia; Z20.822 Contact with and (suspected) exposure to COVID-19; Z76.5 Malingerer [conscious simulation]; Z82.49 Family history of ischemic heart disease and other diseases of the circulatory system; Z85.528 Personal history of other malignant neoplasm of kidney; Z86.718 Personal history of other venous thrombosis and embolism; Z90.5 Acquired absence of kidney; Z90.710 Acquired absence of both cervix and uterus; F32.A Depression, unspecified; F41.9 Anxiety disorder, unspecified; G62.9 Polyneuropathy, unspecified; K21.9 Gastro-esophageal reflux disease without esophagitis; Z68.29 Body mass index [BMI] 29.0-29.9, adult; Z79.01 Long term (current) use of anticoagulants
CPT/HCPCS: 36415; 36600; 71045; 71275; 80048; 80053; 81001; 82805; 83605; 83880; 84484; 85007; 85025; 87040; 87426; 93005; 93306; 93970; 94640; 94760; 96361; 96365; 96375; 99406; J0295; J0360; J0456; J1650; J1885; J2060; J2543; J2920; J2930; J7030; J7050; J7509; Q9967; U0003; U0005; 99285-25; G0378